=== PATIENT | female | born 1960 | race Two or more races ===

== ENCOUNTER → 2021-02-08 14:16 | Outpatient (BNVA) | payer MEDICAID, SELFPAY | PROVIDERS: PCP Internal Medicine; Visit Provider Internal Medicine Pulmonary Disease | DX: Q25.0 Patent ductus arteriosus (principal) | CPT/HCPCS: 99202 ==

== ENCOUNTER 2022-01-21 11:24 | Emergency (ER) | payer MEDICAID, SELFPAY ==
--- NOTE | ~2022-01-21 | CT_ITS ---
EXAMINATION: CT HEAD WITHOUT CONTRAST CLINICAL INFORMATION: Fall with pain COMPARISON: None TECHNIQUE: Contiguous axial imaging was performed from the skull base to vertex without intravenous administration of contrast. This CT examination was performed using dose optimization techniques as appropriate, variously including the following: *Automated exposure control *Adjustment of mA and/or kV according to patient size (this includes techniques or standardized protocols for targeted exams where dose is matched to indication/reason for exam; i.e. extremities or head) *Use of iterative reconstruction technique DLP: 712 mGy-cm FINDINGS: No evidence for acute bleed or mass effect. Vicente/white matter differentiation is maintained. No extra-axial collections. Cisterns are unremarkable. There are hypodense changes of periventricular and subcortical white matter consistent with chronic small vessel ischemic disease. Bilateral frontal, ethmoid, and sphenoid opacification seen. There is prominent mucosal thickening of maxillary sinuses. The mastoid air cells are well aerated. Calvarium is intact. CT/CT head/brain wo IV con IMPRESSION: No evidence for brain parenchymal bleed or mass effect. Changes of chronic small vessel ischemic disease of white matter. Sinusitis.
--- NOTE | ~2022-01-21 | CT_ITS ---
EXAMINATION: CT CERVICAL SPINE WITHOUT CONTRAST CLINICAL INFORMATION: Fall with pain COMPARISON: None TECHNIQUE: Axial sections performed and bone and soft tissue windows without IV contrast enhancement. Sagittal and coronal reconstructions performed. This CT examination was performed using dose optimization techniques as appropriate, variously including the following: *Automated exposure control *Adjustment of mA and/or kV according to patient size (this includes techniques or standardized protocols for targeted exams where dose is matched to indication/reason for exam; i.e. extremities or head) *Use of iterative reconstruction technique DLP: 310 mGy-cm FINDINGS: The odontoid and the condyles are unremarkable. C1 and C2 arches intact. No significant foraminal stenosis. Spondylitic change and eccentric degenerative disc space narrowing observed C5-C7. There is mild facet arthrosis. Spinous processes are intact. No appreciable central canal stenosis. The epiglottis and vocal cords are unremarkable. No suspicious cervical chain adenopathy, with small nodes appreciated. CT/CT cervical spine wo IV con IMPRESSION: No CT evidence for bony fracture. Degenerative changes as noted. Fleischner guidelines were followed.
--- NOTE | ~2022-01-21 | XR_ITS ---
EXAMINATION: XR ANKLE, RIGHT CLINICAL INFORMATION: Fall with pain. COMPARISON: None TECHNIQUE: AP, lateral, and mortise views of the right ankle. FINDINGS: There is a transverse, minimally displaced fracture of the lateral malleolus, distal to the syndesmosis with prominent overlying soft tissue swelling. There is an oblique fracture at the base of the medial malleolus. This configuration is typical of an inversion injury. The ankle mortise appears preserved. XR/XR ankle RT min 3V IMPRESSION: Bimalleolar fracture as described. The configuration is typical of an inversion injury. The ankle mortise appears preserved.
--- NOTE | ~2022-01-21 | XR_ITS ---
EXAMINATION: XR CHEST CLINICAL INFORMATION: Fall with pain COMPARISON: 12/18/2018 TECHNIQUE: Frontal view of the chest was obtained. FINDINGS: No focal consolidation, pulmonary edema, or pleural effusion. Stable mildly enlarged cardiomediastinal silhouette. XR/XR chest 1V IMPRESSION: No acute cardiopulmonary findings.
--- NOTE | 2022-01-21 11:32 | ED.GENADULT ---
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 Patient states that earlier today she tripped and fell down 6 stairs, landing on her right side. Patient states that when it happened, her right ankle twisted and it has been very painful since then. Patient denies hitting her head with the incident or having any loss of consciousness. Patient denies any numbness, tingling, dizziness, lightheadedness, abdominal pain, nausea, vomiting, fever, chills, blurry vision, double vision, loss of vision, chest pain, difficulty breathing, shortness of breath, back pain, night sweats, pain with urination, increased urinary frequency, increased urinary urgency, blood in her urine or stool, syncope or a near syncopal episode, bowel incontinence, bladder incontinence, bowel retention, bladder retention, or any other complaints at this time. Onset (ago): minute(s) Location: right and lower extremity Radiation: non-radiation Severity: moderate Severity scale (1-10): 5 Quality: sharp Pain Consistency: constant Relieving factors: immobilization Exacerbating factors: movement Associated symptoms: denies other symptoms Treatments prior to arrival: none Related Data Home Medications Medication Instructions Recorded Confirmed No Known Home Meds 11/20/20 11/20/20 Allergies Allergy/AdvReac Type Severity Reaction Status Date / Time No Known Allergies Allergy Unverified 01/21/22 11:31 Review of Systems Constitutional: Constitutional: Reports no additional constitutional complaints, Denies chills, Denies fever(s) and Denies night sweats Eyes: Eyes: Reports no additional eye complaints, Denies blurry vision, Denies change in vision, Denies diplopia, Denies eye discharge, Denies loss of vision and Denies eye pain ENT: Denies dizziness Cardiovascular: Cardiovascular: Reports no additional cardiovascular complaints, Denies chest pain, Denies lightheadedness, Denies Loss of Consciousness and Denies dyspnea Respiratory: Respiratory: Reports no additional respiratory complaints and Denies dyspnea Gastrointestinal: Gastrointestinal: Reports no additional gastrointestinal complaints, Denies abdominal pain, Denies melena, Denies hematochezia, Denies change in bowel habits and Denies change in stool character Genitourinary: Genitourinary: Denies hematuria, Denies urinary frequency, Denies dysuria, Denies urinary incontinence, Denies urinary hesitancy and Denies urinary urgency Musculoskeletal: Musculoskeletal: Reports no additional musculoskeletal complaints, Denies numbness and Denies tingling Comments: right ankle pain Neurologic: Denies dizziness, Denies loss of vision, Denies numbness and Denies tingling Psychiatric: Psychiatric: Reports no additional psychiatric complaints Endocrine: Endocrine: Reports no additional endocrine complaints Hematologic/Lymphatic: Hematologic/Lymphatic: Reports no additional hematologic/lymphatic complaints Allergic/Immunologic: Allergic/Immunologic: Reports no additional allergic/immunologic complaints PMFSH Past Medical History Attestation statement: The following information was validated with the patient. Source: old records reviewed Surgical History History of tubal ligation Family History Family History Father Prostate cancer Mother Diabetes Dementia Sister No problems noted. Sister No problems noted. Sister Dementia Brother No problems noted. Brother Prostate cancer Son No problems noted. Son No problems noted. Daughter No problems noted. Social History Social History Housing: Apartment Patient Tobacco Use Status: Current everyday Tobacco user Tobacco use type: Cigarette Cigarettes Per Day: 4 e-Cigarette/Vaping Use: Never Used Second Hand Smoke Exposure: Yes Advance Directives: No Advance Directives Information Provided: Yes service: No Current occupational status: employed Physical Exam ED Vital Signs: Vital Signs - 24 hr 01/21/22 11:35 01/21/22 14:31 Temperature 98.4 F 97.9 F Pulse Rate 92 82 Respiratory Rate 18 18 Blood Pressure 212/105 H 170/75 H Pulse Oximetry 97 96 Oxygen Delivery Method Room Air Room Air BMI result Body Mass Index 33.1 Const General: cooperative, no acute distress, alert and awake Nutritional Appearance: well nourished Orientation/consciousness: patient oriented x3 Limitations: no limitations HENMT Head: Yes normal to inspection and Yes atraumatic Ears: hearing grossly normal bilaterally and external ears normal General nose exam: Normal external nose present, no nasal discharge noted and no epistaxis Face and sinus: Yes normal facial exam, No abrasion and No laceration Mouth: Normal oral and palatal mucosa present, no drooling and no muffled voice Eyes General: appearance normal, both eyes and all related structures Periorbital: periorbital findings normal Eyelids: Yes eyelids normal Conjunctivae: conjunctivae normal Pupils: Equal, round and reactive pupils present EOM: EOMs intact bilaterally Neck Neck: Yes normal visual inspection, Yes full ROM and Yes no lymphadenopathy Chest Chest palpation & inspection: normal inspection of the chest Resp Effort & Inspection: normal respiratory effort and able to speak in complete sentences Auscultation: clear to auscultation bilaterally Cardio Rate: regular rate Rhythm: regular rhythm GI Inspection: Yes normal to inspection Neuro General: patient oriented x3 and moves all extremities Cranial nerves: Yes Equal, round and reactive pupils present Cognition (Neuro): normal cognition Motor exam (neuro): 5/5 motor strength present throughout Sensory Exam: Normal double simultaneous stimulation for sensation Coordination: [id number] test normal Extrem Other: swelling along the lateral aspect of the right ankle with pain to palpation and all movement of the right ankle General: Yes capillary refill normal Psych Appearance: grossly normal Mental Status: mental status grossly normal Affect: normal affect Attitude: cooperative Thought process: Normal thought process present Thought content: Normal thought content present Insight: Good insight present (Psych) Procedures Orthopedic Splinting/Casting Injury #1: Side: right Lower Extremity Injury Location: ankle Lower Extremity Immobilizer: posterior splint and stirrup splint Other Orthopedic Equipment: crutches Medical Decision Making [facility] Narrative Medical decision making narrative: Patient is a 61 year old assigned female at with a history of GERD presenting to the emergency department today with right ankle pain. Patient's physical exam showed swelling to the lateral aspect of the right ankle and pain with palpation or any movement of the right ankle. Patient's blood work was unremarkable. Patient's chest x-ray, CT head, and CT C-Spine showed no acute process. Patient's right ankle x-ray showed a bimalleolar fracture. I explained my physical exam findings as well as all test results to the patient, the patient's , and the patient's daughter. I answered all questions asked by the patient, the patient's , and the patient's daughter. Patient received IV Fentanyl by EMS on the way to the department. Patient also received PO Ativan which she stated helped her pain significantly. Patient's right ankle was placed in a posterior short leg with stirrups splint, without incident. Patient's PMS was intact prior to and after splint placement. Patient was given crutches as well as crutch instructions. I stressed the importance of the patient taking her medication as prescribed. I stressed the importance of the patient following up with her primary care provider and an orthopedic provider. I stressed the importance of the patient returning to the emergency department immediately if her symptoms were to worsen or if she were to develop any dizziness, shortness of breath, difficulty breathing, chest pain, blurry vision, loss of vision, nausea, vomiting, abdominal pain, fever, chills, back pain, or any other complaints. Patient, the patient's , and the patient's daughter verbalized agreement and understanding with this treatment plan and discharge. Medical Records Medical records reviewed: Yes I reviewed the patient's medical records. Lab Data Result diagrams: 01/21/22 11:53 01/21/22 11:53 Labs: Lab Results 01/21/22 01/21/22 01/21/22 Range/Units 11:53 11:53 11:53 WBC 7.4 (4.8-10.8) X10*3/uL RBC 4.17 L (4.20-5.50) X10*6/uL Hgb 13.0 (12.0-16.0) g/dl Hct 39.1 (37.0-47.0) % MCV 93.8 (80.0-98.0) fL MCH 31.2 (27.0-33.0) pg MCHC 33.2 (31.0-35.0) g/dl RDW 12.5 (11.0-16.0) % Plt Count 270 (160-400) X10*3/uL MPV 9.5 (9.4-12.3) fL Immature Gran % (Auto) 0.3 (0.0-0.4) % Neut % (Auto) 59.5 (45-73) % Lymph % (Auto) 28.7 (20-40) % Elbert % (Auto) 7.3 (2-11) % Eos % (Auto) 3.1 (0-4) % Baso % (Auto) 1.1 (0-2) % Lymph # (Auto) 2.1 (1.2-4.9) X10*3/uL Elbert # (Auto) 0.5 (0.1-1.2) X10*3/uL Eos # (Auto) 0.2 (0.0-0.4) X10*3/uL Baso # (Auto) 0.1 (0.0-0.2) X10*3/uL Abs Immat Gran (auto) 0.02 (0.00-0.03) X10*3/uL Absolute Neuts (auto) 4.4 (2.0-8.3) x10*3/uL Absolute Nucleated RBC 0.000 (0.0-0.012) X10*3/uL Nucleated RBC % (auto) 0.0 (0.0-0.2) /100WBC PT 11.8 (10.0-13.1) SEC INR 1.0 (0.9-1.1) APTT 30.2 (26.0-36.4) SEC Sodium 142 (135-145) mmol/L Potassium 4.3 (3.3-5.1) mmol/L Chloride 104 (96-108) mmol/L Carbon Dioxide 29 (22-29) mmol/L Anion Gap 13 (12-20) BUN 20 H (9-16) mg/dL Creatinine 0.86 (0.5-1.4) mg/dL Estim Creat Clear Calc 59.2 Estimated GFR > 60 Random Glucose 118 H (60-115) mg/dL Calcium 9.1 (8.4-10.2) mg/dL Total Bilirubin 0.6 (0.0-1.0) mg/dL AST 26 (5-31) U/L ALT 19 (0-31) U/L Alkaline Phosphatase 76 (39-117) U/L Total Protein 7.2 (6.5-8.0) g/dL Albumin 4.0 (3.5-5.0) g/dL Imaging Data Right ankle x-ray: Attestation: I personally reviewed and interpreted this imaging study as follows: My impression: Bimalleolar fracture Radiologist's impression: EXAMINATION: XR ANKLE, RIGHT CLINICAL INFORMATION: Fall with pain.? COMPARISON: None? TECHNIQUE: AP, lateral, and mortise views of the right ankle. FINDINGS: There is a transverse, minimally displaced fracture of the lateral malleolus, distal to the syndesmosis with prominent overlying soft tissue swelling. There is an oblique fracture at the base of the medial malleolus. This configuration is typical of an inversion injury. The ankle mortise appears preserved.? XR/XR ankle RT min 3V IMPRESSION: Bimalleolar fracture as described. The configuration is typical of an inversion injury. The ankle mortise appears preserved. Dictated By: Zain Emerson MD Signed By: Electronically signed by Zain Emerson MD 01/21/22 1251 Chest x-ray: Attestation: I personally reviewed and interpreted this imaging study as follows: My impression: No acute process. Radiologist's impression: EXAMINATION: XR CHEST CLINICAL INFORMATION: Fall with pain COMPARISON: 12/18/2018 TECHNIQUE: Frontal view of the chest was obtained. FINDINGS: No focal consolidation, pulmonary edema, or pleural effusion. Stable mildly enlarged cardiomediastinal silhouette. XR/XR chest 1V IMPRESSION: No acute cardiopulmonary findings. Dictated By: Zain Emerson MD Signed By: Electronically signed by Zain Emerson MD 01/21/[address] C-Spine: Attestation: I personally reviewed and interpreted this imaging study as follows: My impression: No acute process. Radiologist's impression: EXAMINATION: CT CERVICAL SPINE WITHOUT CONTRAST CLINICAL INFORMATION: Fall with pain COMPARISON: None TECHNIQUE: Axial sections performed and bone and soft tissue windows without IV contrast enhancement. Sagittal and coronal reconstructions performed. This CT examination was performed using dose optimization techniques as appropriate, variously including the following: *Automated exposure control *Adjustment of mA and/or kV according to patient size (this includes techniques or standardized protocols for targeted exams where dose is matched to indication/reason for exam; i.e. extremities or head) *Use of iterative reconstruction technique DLP: 310 mGy-cm FINDINGS: The odontoid and the condyles are unremarkable. C1 and C2 arches intact. No significant foraminal stenosis. Spondylitic change and eccentric degenerative disc space narrowing observed C5-C7. There is mild facet arthrosis. Spinous processes are intact. No appreciable central canal stenosis. The epiglottis and vocal cords are unremarkable. No suspicious cervical chain adenopathy, with small nodes appreciated. IMPRESSION: No CT evidence for bony fracture. Degenerative changes as noted. Fleischner guidelines were followed. Dictated by: Pavan Crump Electronically Signed: January 21, 2022 13:22 CT scan - head: Attestation: I personally reviewed and interpreted this imaging study as follows: My impression: No acute process. Radiologist's impression: EXAMINATION: CT HEAD WITHOUT CONTRAST CLINICAL INFORMATION: Fall with pain COMPARISON: None TECHNIQUE: Contiguous axial imaging was performed from the skull base to vertex without intravenous administration of contrast. This CT examination was performed using dose optimization techniques as appropriate, variously including the following: *Automated exposure control *Adjustment of mA and/or kV according to patient size (this includes techniques or standardized protocols for targeted exams where dose is matched to indication/reason for exam; i.e. extremities or head) *Use of iterative reconstruction technique DLP: 712 mGy-cm FINDINGS: No evidence for acute bleed or mass effect. Vicente/white matter differentiation is maintained. No extra-axial collections. Cisterns are unremarkable. There are hypodense changes of periventricular and subcortical white matter consistent with chronic small vessel ischemic disease. Bilateral frontal, ethmoid, and sphenoid opacification seen. There is prominent mucosal thickening of maxillary sinuses. The mastoid air cells are well aerated. Calvarium is intact. IMPRESSION: No CT evidence for brain parenchymal bleed or mass effect. Changes of chronic small vessel ischemic disease of white matter. Sinusitis. Fleischner guidelines were followed. Dictated by: Pavan Crump Electronically Signed: January 21, 2022 13:19 Critical Care Time Critical Care Time Critical Care Time: Yes Total Critical Care Time: 30 Attestation: I spent 30 minutes of Critical Care Time with this patient. This does not include time spent on separately reported billable procedures. Discharge Plan Discharge Clinical Impression: Ankle fracture Patient Disposition: Home, Self-Care Instructions: Ankle Fracture (ED), Crutch Instructions (ED) Additional Instructions: Do NOT get your splint wet. If you start to notice numbness, tingling, or a color change in your right toes - loosen the krysta wrap around your splint first. If that does not help alleviate the symptoms, please return to the Emergency Department. Follow up with your primary care provider and an orthopedic provider. Return to the emergency department immediately if your symptoms worsen or if you develop any dizziness, shortness of breath, difficulty breathing, chest pain, blurry vision, loss of vision, nausea, vomiting, abdominal pain, fever, chills, back pain, or any other complaints. NO moje angeles f?laci. Si comienza a notar entumecimiento, hormigueo o un cambio de color en los dedos del pie derecho, lala afloje la venda que envuelve la f?laci. Si eso no ayuda a aliviar los s?ntomas, regrese al Departamento de Emergencias. Ulises un seguimiento con angeles proveedor de atenci?n primaria y un proveedor ortop?dico. Regrese al departamento de emergencias de inmediato si hallie s?ntomas empeoran o si presenta mareos, falta de aire, dificultad para respirar, dolor de pecho, visi?n borrosa, p?rdida de la visi?n, n?useas, v?mitos, dolor abdominal, fiebre, escalofr?os, dolor de espalda o cualquier otras quejas. Prescriptions: No Action No Known Home Meds Referrals: [facility] [place] Family Medicine [Provider Group] (Call to establish and follow up with a primary care provider. If you already have a primary care provider, please follow up with them. Llame para establecer y hacer un seguimiento con un proveedor de atenci?n primaria. Si ya tiene un proveedor de atenci?n primaria, ulises un seguimiento con ?l.) [facility] [place] Primary CareAlexey [Provider Group] (Call to establish and follow up with a primary care provider. If you already have a primary care provider, please follow up with them. Llame para establecer y hacer un seguimiento con un proveedor de atenci?n primaria. Si ya tiene un proveedor de atenci?n primaria, ulises un seguimiento con ?l.) [facility] [place] Primary CareGabb[facility] [Provider Group] (Call to establish and follow up with a primary care provider. If you already have a primary care provider, please follow up with them. Llame para establecer y hacer un seguimiento con un proveedor de atenci?n primaria. Si ya tiene un proveedor de atenci?n primaria, ulises un seguimiento con ?l.) [facility] [place] [facility] [Provider Group] (Call to establish and follow up with an orthopedic provider. Llame para establecer y hacer un seguimiento con un proveedor ortop?dico.) Stand Alone Forms: Work/School Release Print Language: Divehi
[2022-01-21 11:35] VITALS: BP 212/105; PULSE 92; RESP 18; TEMP 36.9; O2SAT 97; BMI 33.1
[2022-01-21 11:56] LABS: MANUAL DIFF FLAG NO
[2022-01-21 12:00] LABS: Basophils Absolute Auto 0.1 X10*3/uL (0.0-0.2); Basophils Percent Auto 1.1 % (0-2); Eosinophils Absolute Auto 0.2 X10*3/uL (0.0-0.4); Eosinophils Percent Auto 3.1 % (0-4); Hematocrit 39.1 % (37.0-47.0); Imm Gran Abs Auto 0.02 X10*3/uL (0.00-0.03); Imm Gran Pct Auto 0.3 % (0.0-0.4); Lymphocytes Absolute Auto 2.1 X10*3/uL (1.2-4.9); Lymphocytes Percent Auto 28.7 % (20-40); Mean Corpuscular HGB Conc 33.2 g/dl (31.0-35.0); Mean Corpuscular Hemoglobin 31.2 pg (27.0-33.0); Mean Corpuscular Volume 93.8 fL (80.0-98.0); Mean Platelet Volume 9.5 fL (9.4-12.3); Monocytes Absolute Auto 0.5 X10*3/uL (0.1-1.2); Monocytes Percent Auto 7.3 % (2-11); Neutrophils Absolute Auto 4.4 x10*3/uL (2.0-8.3); Neutrophils Percent Auto 59.5 % (45-73); Platelet Count 270 X10*3/uL (160-400); Red Blood Count 4.17 X10*6/uL (4.20-5.50); Red Cell Distribution Width 12.5 % (11.0-16.0); White Blood Count 7.4 X10*3/uL (4.8-10.8)
[2022-01-21 12:03] LABS: Prothrombin Time 11.8 SEC (10.0-13.1)
[2022-01-21 12:05] LABS: Partial Thromboplastin Time 30.2 SEC (26.0-36.4)
[2022-01-21] MEDS: LORazepam 1 MG TABLET 2 MG PO (12:23)
[2022-01-21 12:25] LABS: Alanine Aminotransferase 19 U/L (0-31); Alkaline Phosphatase 76 U/L (39-117); Anion Gap 13 (12-20); Aspartate Amino Transferase 26 U/L (5-31); Bilirubin Total 0.6 mg/dL (0.0-1.0); Blood Urea Nitrogen 20 mg/dL (9-16); Calcium 9.1 mg/dL (8.4-10.2); Carbon Dioxide 29 mmol/L (22-29); Chloride 104 mmol/L (96-108); Creatinine Clr Calc Pharmacy 59.2; Estimated Glomerular Filt Rate > 60; Glucose Random 118 mg/dL (60-115); Potassium 4.3 mmol/L (3.3-5.1); Sodium 142 mmol/L (135-145); Total Protein 7.2 g/dL (6.5-8.0)
--- NOTE | 2022-01-21 13:34 | MHC.CM.PN ---
T/W MET WITH PATIENT AND FAMILY (WITH PERMISSION FROM PATIENT) PATIENT TO BE TRANSPORTED HOME WITH FAMILY (ALL PRESENT) AND NO NEED FOR [facility] SERVICES. PATIENT AND FAMILY AWARE THAT CM IS AVAILABLE IF NEEDED PRIOR TO DC.
[2022-01-21 14:31] VITALS: BP 170/75; PULSE 82; RESP 18; TEMP 36.6; O2SAT 96
== END 2022-01-21 15:18 | disposition home or self-care (01) ==
PROVIDERS: Physician Assistant Medical; Emergency Provider Emergency Medicine
DX: S82.841A Displaced bimalleolar fracture of right lower leg, initial encounter for closed fracture (principal); W10.8XXA Fall (on) (from) other stairs and steps, initial encounter; Y93.89 Activity, other specified; Y92.038 Other place in apartment as the place of occurrence of the external cause; Y99.9 Unspecified external cause status
CPT/HCPCS: 29515; 36415; 70450; 71045; 72125; 73610; 80053; 85025; 85610; 85730; 99283; 99284

== ENCOUNTER → 2022-01-25 08:28 | Outpatient (BNVA) | payer MEDICAID, SELFPAY | PROVIDERS: Visit Provider Physician Assistant | DX: M25.571 Pain in right ankle and joints of right foot (principal); S82.841A Displaced bimalleolar fracture of right lower leg, initial encounter for closed fracture; W01.0XXA Fall on same level from slipping, tripping and stumbling without subsequent striking against object, initial encounter; X50.1XXA Overexertion from prolonged static or awkward postures, initial encounter; Y93.01 Activity, walking, marching and hiking; Y92.9 Unspecified place or not applicable; Y99.8 Other external cause status | CPT/HCPCS: 29405; 99202 ==

== ENCOUNTER 2022-02-01 07:29 | Outpatient (REF) | payer MEDICAID, SELFPAY ==
--- NOTE | ~2022-02-01 | XR_ITS ---
EXAMINATION: XR ANKLE, RIGHT CLINICAL INFORMATION: Pain in right ankle and joints of right foot COMPARISON: None TECHNIQUE: AP, lateral, and mortise views of the right ankle. FINDINGS: Transverse fracture in the distal fibula and an oblique fracture in the medial malleolus that extends into the joint space. The posterior mortise appears intact. There is a joint effusion. There is soft tissue swelling. XR/XR ankle RT min 3V IMPRESSION: Transverse fracture in the distal fibula and oblique fracture in the medial malleolus that extends into the joint space.
== END 2022-02-01 07:30 | disposition home or self-care (01) ==
LOC: HO.HOSX 07:29
PROVIDERS: Visit Provider Physician Assistant
DX: M25.571 Pain in right ankle and joints of right foot (principal); S82.841A Displaced bimalleolar fracture of right lower leg, initial encounter for closed fracture; X58.XXXA Exposure to other specified factors, initial encounter; Y93.9 Activity, unspecified; Y92.9 Unspecified place or not applicable; Y99.8 Other external cause status
CPT/HCPCS: 73610; 99202

== ENCOUNTER 2022-02-13 07:10 | Day surgery (SDC) | payer OTHER, SELFPAY ==
--- NOTE | 2022-02-05 08:29 | P.CONAN_ITS ---
Documented by User: Rosibel Omer NP 02/05/22 12:23 HPI - Anesthesia Eval Consult details Narrative: 61yo F for Right Ankle Fracture ORIF Incidental finding of PDA on 2019 ECHO. Per pulmo, no pulm htn. No cardiology f/u. >4 mets prior to ankle injury. Case reviewed with Dr Martine VELARDE Active Problems Active Problems: All Active Problems (Updated 01/25/22 @ 09:09 by Nataliya Valdivia) Bimalleolar fracture of right ankle (Acute) Patent ductus arteriosus (Acute) GERD (gastroesophageal reflux disease) (Acute) Pulmonary artery hypertension (Acute) Cholelithiases (Acute) Cervical cancer screening (Acute) Colon cancer screening (Acute) Breast cancer screening by mammogram (Acute) Tobacco abuse (Acute) Overweight (BMI 25.0-29.9) (Acute) Annual physical exam (Acute) Past Medical History Medical History Patent ductus arteriosus Pulmonary artery hypertension Tobacco abuse Family History Family History Father Prostate cancer Mother Diabetes Dementia Sister No problems noted. Sister No problems noted. Sister Dementia Brother No problems noted. Brother Prostate cancer Son No problems noted. Son No problems noted. Daughter No problems noted. 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 Meds Allergies Allergy/AdvReac Type Severity Reaction Status Date / Time No Known Allergies Allergy Verified 02/13/22 07:28 Home Medications Medication Instructions Recorded Confirmed Last Taken Type ibuprofen 400 mg tablet 400 - 800 mg PO Q6-8H PRN pain 01/25/22 02/13/22 Unknown History hydrocodone 5 mg-acetaminophen 325 1 tab PO Q8H PRN pain 02/13/22 02/13/22 Unknown History mg tablet Exam Exam Date and Time: February 05, 2022 08 Pertinent Lab Results Pertinent Lab Results: Laboratory Tests 01/21/22 01/21/22 11:53 11:53 WBC 7.4 Hgb 13.0 Hct 39.1 Plt Count 270 Sodium 142 Potassium 4.3 Chloride 104 Carbon Dioxide 29 BUN 20 H Creatinine 0.86 Assessment and Plan Assessment Anesthesia Assessment: Chart Reviewed Documented by User: Vianey Interiano MD 02/13/22 08:20 PMFSH Active Problems Active Problems: All Active Problems (Updated 01/25/22 @ 09:09 by Nataliya Valdivia) Bimalleolar fracture of right ankle (Acute) Patent ductus arteriosus (Acute) GERD (gastroesophageal reflux disease) (Acute) Pulmonary artery hypertension (Acute) Cholelithiases (Acute) Cervical cancer screening (Acute) Colon cancer screening (Acute) Breast cancer screening by mammogram (Acute) Tobacco abuse (Acute) Overweight (BMI 25.0-29.9) (Acute) Annual physical exam (Acute) Denies JENNY Past Medical History Medical History Patent ductus arteriosus Pulmonary artery hypertension Tobacco abuse Family History Family History Father Prostate cancer Mother Diabetes Dementia Sister No problems noted. Sister No problems noted. Sister Dementia Brother No problems noted. Brother Prostate cancer Son No problems noted. Son No problems noted. Daughter No problems noted. 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 Meds Allergies Allergy/AdvReac Type Severity Reaction Status Date / Time No Known Allergies Allergy Verified 02/13/22 07:28 Home Medications Medication Instructions Recorded Confirmed Last Taken Type ibuprofen 400 mg tablet 400 - 800 mg PO Q6-8H PRN pain 01/25/22 02/13/22 Unknown History hydrocodone 5 mg-acetaminophen 325 1 tab PO Q8H PRN pain 02/13/22 02/13/22 Unknown History mg tablet Exam Height,Weight and Vital Signs: Height 4 ft 11 in Weight 68.039 kg Vital Signs Temp Pulse Resp BP Pulse Ox O2 Del Method 02/13/22 07:51 97.1 F 79 15 162/75 H 95 Room Air Airway Mallampati Class: III TM Dist: >3cm Neck ROM: Full Loose/Missing/Broken Teeth: Yes (Many missing, broken, 1 bottom front loose. Aware that may become dislodged with intubation/ LMA placement ) Heart: RRR + systolic murmur Lungs: CTAB Assessment and Plan Assessment Anesthesia Assessment: Anesthesia Plan Discussed Final Anesthetic Review Family History of Problems with Anesthesia: No History of Problems with Anesthesia: No NPO: Yes ASA Class: III Final Preanesthetic Review: No Changes in Pt Med Stat, Meds/Allgs Chart Reviewed, Consent Obtained/Reviewed and Anes Risks/Benef Reviewed Patient Risk: Intermediate Procedure Risk: Intermediate Assessment/Block/Sedation in SS: Assess/Block/Sedation- Anesthetic Plan Anesthetic Plan: GA and Regional Block (Right Adductor Canal + Popliteal nerve block) Disposition: Standard PACU and Inp. Admit - Standard Bed
[2022-02-13] VITALS (20 sets, daily range): BP systolic 145–212; BP diastolic 55–147; PULSE 69–878; RESP 14–24; TEMP 36–36.9; O2SAT 91–100; BMI 30.2
--- NOTE | ~2022-02-13 | FL_ITS ---
EXAMINATION: XR FLUOROSCOPY WITH IMAGES CLINICAL INFORMATION: Distal right fibular ORIF. COMPARISON: None. TECHNIQUE: Fluoroscopy performed by Dr. Lewis. Fluoroscopy time: 0.1. Cumulative Dose: 0.249 mGy. DAP: 0.95312 Gycm2. Images: 3. FL/FL guidance in OR FINDINGS/IMPRESSION: Final images show a lateral fixation plate and securing cortical screws in the distal fibula with good anatomic alignment and no hardware abnormality. Please refer to the operative report for more detailed findings.
[2022-02-13] MEDS: Lactated Ringers 1,000 ML 100 ML IVCONT (08:09)
[2022-02-13 08:34] LABS: COVID-19 Test Negative (Negative); IDNOW Serial# 9DB6401D
--- NOTE | 2022-02-13 11:36 | PM.OP ---
Brief Operative Note Date of Service: 02/13/22 Pre-op diagnosis: right ankle fracture Post-op diagnosis: same Procedure: ORIF right lateral mal Implants: Strykler lateral locking plate Surgeon: Riley Lewis MD Anesthesia: GETA and regional Was an Customer Specialist used for this Procedure?: Yes Customer Specialist: Terri López Estimated blood loss (mL): 10 IV fluids (mL): 500 Pathology: none sent Condition: stable Disposition: PACU
[2022-02-13] MEDS: fentaNYL citrate/PF 100 MCG/2 ML VIAL 25 MCG IVPUSH ×2 (11:51→12:01)
[2022-02-13] MEDS: fentaNYL citrate/PF 100 MCG/2 ML VIAL 50 MCG IVPUSH (11:56)
[2022-02-13] MEDS: Acetaminophen 1,000 MG/100 ML PIGGYBACK 400 MG IV (12:04)
[2022-02-13] MEDS: Ketorolac Tromethamine 30 MG/ML VIAL 15 MG IVPUSH (12:04)
[2022-02-13] MEDS: HYDROmorphone HCl 0.5 MG/0.5 ML SYRINGE 0.25 MG IVPUSH ×2 (12:16→12:38)
--- NOTE | 2022-02-13 13:16 | PM.EVENT ---
Event Note Date of Service: 02/13/22 Event Note: Patient post right ankle fracture with block that seemed to be patchy in intractible pain. Right popliteal block was redone. Aseptic prep and drape chlorohexadine. Ultrasound probe covered by tegaderm. 80mm insulated block needle used. Under Ultrasound guidance the artery and nerve was located. 20cc 0.5% ropivacaine injected with frequent aspirations. Good spread noted. Patient responded well to pain control.
[2022-02-13] MEDS: oxyCODONE HCl Immed Release 5 MG TABLET PO (21:42)
[2022-02-14] VITALS (8 sets, daily range): BP systolic 132–169; BP diastolic 60–84; PULSE 75–78; RESP 14–19; TEMP 35.9–36.8; O2SAT 98–100
[2022-02-14] MEDS: oxyCODONE HCl ER 10 MG TAB.ER.12H PO ×3 (00:20→19:43)
[2022-02-14] MEDS: oxyCODONE HCl Immed Release 5 MG TABLET 10 MG PO ×4 (00:20→17:23)
[2022-02-14] MEDS: Acetaminophen 325 MG TABLET 650 MG PO ×4 (00:20→17:23)
--- NOTE | 2022-02-14 08:29 | PM.PNORT ---
Subjective Subjective Date of Service: 02/14/22 Interval history: POD1 s/p right ankle ORIF. Patient is resting in bed. Patient does not appear to be in significant discomfort but reports pain. No additional complaints. Physical Exam Vital Signs: Vital Signs: Last Vital Signs Temp 97.1 F 02/14/22 07:18 Pulse 78 02/14/22 07:18 Resp 18 02/14/22 07:18 BP 158/74 H 02/14/22 07:18 Pulse Ox 100 02/14/22 07:18 O2 Del Method 02/14/22 07:18 O2 Flow Rate 2 02/13/22 14:21 BMI result Body Mass Index 30.2 Const: General: cooperative, healthy appearing and no acute distress Resp: Effort & Inspection: normal respiratory effort and able to speak in complete sentences Cardio: Rate: regular rate Peripheral pulses: Peripheral pulses 2+ throughout GI: Palpation (GI): Soft to palpation Skin: Lesions: no lesions Rashes: no rashes Extrem: Other: Right ankle splint is c/d/i. Able to move all digits. NVI. Procedures Date of Service Date of Service: 02/14/22 Progress Note: A&P Assessment and plan (1) Status post ORIF of fracture of ankle: Status: Acute Assessment and Plan: Continue pain mgmnt Begin ASA for dvt ppx begin PT for Rt ankle ORIF - NWB Dispo planning-Pending PT eval, pain mgmnt (2) Bimalleolar fracture of right ankle: Status: Acute Time Spent With Patient Time: Total time spent is greater than 50% in coordination of care (as documented) at patient's floor/unit and/or counseling patient: Quality Stroke Does the patient have a stroke diagnosis?: No VTE Prior VTE?: No VTE Risk Level:: Medical - moderate - high VTE Device Contraindication: N/A - Device Ordered VTE Drug Contraindication: N/A - Med Ordered
[2022-02-14] MEDS: ondansetron HCL 4 MG/2 ML VIAL IVPUSH (08:55)
--- NOTE | 2022-02-14 13:51 | HO.POSTANES ---
Post Anesthesia Evaluation Post Anesthesia Evaluation Vital Signs: Vital Signs Temp Pulse Resp BP Pulse Ox O2 Del Method 02/14/22 11:23 96.7 F L 78 18 169/84 H 99 Room Air 02/14/22 09:24 78 158/74 H 100 02/14/22 11:42 98 Room Air 02/14/22 07:18 97.1 F 78 18 158/74 H 100 Room Air 02/14/22 03:33 96.9 F 76 14 132/60 98 Room Air Anesthesia: Nerve Block and General Mental Status: Awake Pain Control: Satisfactory Nausea/Vomiting: None Hydration: Adequate Anesthesia-Related Issues: No Anes. Related Issues
--- NOTE | 2022-02-14 16:18 | MHC.CM.PN ---
PT REPORTS SHE LIVES WITH HER S/O WHO SHE TYPICALLY ASSISTS WITH CARE SHE REPORTS SHE IS INDEPENDENT WITH CARE AND MOBILITY AT BL SHE DENIES USE OF SERVICES OR DME SHE REPORTS SHE DOES NOT HAVE A HCP OR A PCP SHE WILL COMPLETE A HCP NAMING HER SISTER, NAYELY HERNANDEZ [phone] HER AGENT SHE IS NOT COVID VACCINATED SHE IS AWARE STR HAS BEEN RECOMMENDED SHE PREFERS TO STAY IN [place] HOWEVER IS AWARE IT MAY BE DIFFICULT TO FIND PLACEMENT DUE TO [facility] STATUS REFERRALS MADE TO ALL [place] SNFS
[2022-02-15] MEDS: oxyCODONE HCl Immed Release 5 MG TABLET 10 MG PO ×3 (02:27→16:12)
[2022-02-15] MEDS: Acetaminophen 325 MG TABLET 650 MG PO (02:28)
[2022-02-15 02:37] VITALS: BP 148/70; PULSE 90; RESP 18; TEMP 36.4; O2SAT 94
[2022-02-15 07:50] VITALS: BP 164/80; PULSE 80; RESP 18; TEMP 36.6; O2SAT 98
--- NOTE | 2022-02-15 08:15 | PM.PNORT ---
Subjective Subjective Date of Service: 02/15/22 Interval history: POD2 s/p right ankle ORIF. Patient is resting in bed. Pain is well managed. No overnight events. No additional complaints. Physical Exam Vital Signs: Vital Signs: Last Vital Signs Temp 97.9 F 02/15/22 07:50 Pulse 80 02/15/22 07:50 Resp 18 02/15/22 07:50 BP 164/80 H 02/15/22 07:50 Pulse Ox 98 02/15/22 07:50 O2 Del Method 02/15/22 07:50 O2 Flow Rate 2 02/13/22 14:21 BMI result Body Mass Index 30.2 Const: General: cooperative, healthy appearing and no acute distress Resp: Effort & Inspection: normal respiratory effort and able to speak in complete sentences Cardio: Rate: regular rate Peripheral pulses: Peripheral pulses 2+ throughout GI: Palpation (GI): Soft to palpation Skin: Lesions: no lesions Rashes: no rashes Extrem: Other: Right ankle splint is c/d/i. Able to move all digits. NVI. Procedures Date of Service Date of Service: 02/15/22 Progress Note: A&P Assessment and plan (1) Status post ORIF of fracture of ankle: Status: Acute Assessment and Plan: Continue pain mgmnt Begin ASA for dvt ppx begin PT for Rt ankle ORIF - NWB Dispo planning-Pending rehab placement, pain mgmnt (2) Bimalleolar fracture of right ankle: Status: Acute Time Spent With Patient Time: Total time spent is greater than 50% in coordination of care (as documented) at patient's floor/unit and/or counseling patient: Quality Stroke Does the patient have a stroke diagnosis?: No VTE Prior VTE?: No VTE Risk Level:: Medical - moderate - high VTE Device Contraindication: N/A - Device Ordered VTE Drug Contraindication: N/A - Med Ordered
[2022-02-15] MEDS: Aspirin 325 MG TABLET PO ×2 (08:32→21:09)
[2022-02-15] MEDS: oxyCODONE HCl ER 10 MG TAB.ER.12H PO ×2 (08:33→21:08)
[2022-02-15 10:06] VITALS: PULSE 80; O2SAT 98
[2022-02-15 11:36] VITALS: BP 171/74; PULSE 73; RESP 17; TEMP 37.2; O2SAT 98
[2022-02-15 16:00] VITALS: BP 168/74; PULSE 69; RESP 18; TEMP 36.5; O2SAT 98
[2022-02-15 20:00] VITALS: BP 165/70; PULSE 80; RESP 18; TEMP 36.3; O2SAT 94
[2022-02-16] VITALS (7 sets, daily range): BP systolic 140–161; BP diastolic 65–83; PULSE 62–82; RESP 16–19; TEMP 36–36.7; O2SAT 96–99
[2022-02-16] MEDS: oxyCODONE HCl Immed Release 5 MG TABLET 10 MG PO ×4 (03:43→23:33)
[2022-02-16] MEDS: oxyCODONE HCl ER 10 MG TAB.ER.12H PO (08:26)
[2022-02-16] MEDS: Acetaminophen 325 MG TABLET 650 MG PO ×2 (08:26→17:16)
[2022-02-16] MEDS: Aspirin 325 MG TABLET PO ×2 (08:27→22:18)
--- NOTE | 2022-02-16 10:11 | PM.PNORT ---
Subjective Subjective Date of Service: 02/16/22 Interval history: POD3 s/p right ankle ORIF. Patient is resting in bed. Pain is well managed. No overnight events. No additional complaints. Physical Exam Vital Signs: Vital Signs: Last Vital Signs Temp 98.0 F 02/16/22 07:53 Pulse 78 02/16/22 07:53 Resp 19 02/16/22 07:53 BP 155/83 H 02/16/22 07:53 Pulse Ox 96 02/16/22 07:53 O2 Del Method 02/16/22 07:53 O2 Flow Rate 2 02/13/22 14:21 BMI result Body Mass Index 30.2 Const: General: cooperative, healthy appearing and no acute distress Resp: Effort & Inspection: normal respiratory effort and able to speak in complete sentences Cardio: Rate: regular rate Peripheral pulses: Peripheral pulses 2+ throughout GI: Palpation (GI): Soft to palpation Skin: Lesions: no lesions Rashes: no rashes Extrem: Other: Right ankle splint is c/d/i. Able to move all digits. NVI. Procedures Date of Service Date of Service: 02/16/22 Progress Note: A&P Assessment and plan (1) Status post ORIF of fracture of ankle: Status: Acute Assessment and Plan: Continue pain mgmnt Begin ASA for dvt ppx begin PT for Rt ankle ORIF - NWB Dispo planning-Pending rehab placement--patient is unvacc for flu and covid so limited options, pain mgmnt (2) Bimalleolar fracture of right ankle: Status: Acute Time Spent With Patient Time: Total time spent is greater than 50% in coordination of care (as documented) at patient's floor/unit and/or counseling patient: Quality Stroke Does the patient have a stroke diagnosis?: No VTE Prior VTE?: No VTE Risk Level:: Medical - moderate - high VTE Device Contraindication: N/A - Device Ordered VTE Drug Contraindication: N/A - Med Ordered
[2022-02-16] MEDS: ondansetron HCL 4 MG/2 ML VIAL IVPUSH (10:36)
[2022-02-17] VITALS (8 sets, daily range): BP systolic 149–170; BP diastolic 67–80; PULSE 66–76; RESP 16–19; TEMP 36.1–36.5; O2SAT 95–99
[2022-02-17] MEDS: oxyCODONE HCl Immed Release 5 MG TABLET 10 MG PO (07:32)
[2022-02-17] MEDS: Docusate Sodium 100 MG CAPSULE PO (10:09)
[2022-02-17] MEDS: Aspirin 325 MG TABLET PO ×2 (10:09→20:48)
[2022-02-17] MEDS: ondansetron HCL 4 MG/2 ML VIAL IVPUSH (10:11)
[2022-02-17] MEDS: oxyCODONE HCl Immed Release 5 MG TABLET PO (15:55)
[2022-02-17] MEDS: Acetaminophen 325 MG TABLET 650 MG PO (15:55)
[2022-02-17] MEDS: oxyCODONE HCl ER 10 MG TAB.ER.12H PO (20:48)
[2022-02-18] MEDS: Acetaminophen 325 MG TABLET 650 MG PO ×3 (02:39→15:21)
[2022-02-18] MEDS: oxyCODONE HCl Immed Release 5 MG TABLET PO ×3 (02:39→15:21)
[2022-02-18 02:43] VITALS: BP 165/79; PULSE 76; RESP 18; TEMP 36; O2SAT 98
[2022-02-18 07:29] VITALS: BP 164/79; PULSE 72; RESP 17; TEMP 36; O2SAT 98
--- NOTE | 2022-02-18 07:59 | P.DS_ITS ---
DS: Providers Provider Date of Service: 02/18/22 Primary care physician: Unknown Physician DS: Diagnosis Discharge Diagnosis (1) Status post ORIF of fracture of ankle: Status: Acute (2) Bimalleolar fracture of right ankle: Status: Acute DS: Summary Hospital Course Hospital Course: The patient underwent a successful ORIF right ankle, was transferred to PACU and then to the floor to recover. During their stay, their vitals were stable, afebrile at 96.8. POD 1 she was started on ASA for DVT ppx, she also received PT servicesdaily. Prior to discharge,splint clean , dry and intact and the plan was to be discharged to [facility] Time Spent with Patient Time attestation: Total time spent providing and/or coordinating discharge services: Discharge coordination time: Less than 30 minutes Quality: Safe Use of Opioids Does Pt have an Active Cancer Diagnosis on the Problem List?: No Quality: Stroke Does the patient have a stroke diagnosis?: No Physical Exam Vital Signs: Vital Signs: Last Vital Signs Temp 96.8 F 02/18/22 07:29 Pulse 72 02/18/22 07:29 Resp 17 02/18/22 07:29 BP 164/79 H 02/18/22 07:29 Pulse Ox 98 02/18/22 07:29 O2 Del Method 02/18/22 07:29 O2 Flow Rate 2 02/13/22 14:21 BMI result Body Mass Index 30.2 Const: General: cooperative, healthy appearing and no acute distress Resp: Effort & Inspection: normal respiratory effort and able to speak in complete sentences Cardio: Rate: regular rate Peripheral pulses: Peripheral pulses 2+ throughout GI: Palpation (GI): Soft to palpation Skin: Lesions: no lesions Rashes: no rashes Extrem: Other: Right ankle splint is c/d/i. Able to move all digits. NVI. Discharge Plan Discharge Patient Disposition: [facility] SNF Referrals: Terri López PA-C [Physician Body And Fender Mechanic Apprentice] - 2 Weeks (02/18/22 2:30 [facility] Terri López PA-C) Discharge Medications: New oxycodone 10 mg tablet 10 mg PO Q4H PRN (Reason: Pain, Moderate (Pain Scale 4-6) 7 Days Qty: 42 0RF Rx Instructions: Partial Fill upon patient request. acetaminophen 325 mg Tablet 650 mg PO Q4H PRN (Reason: Pain, Mild (Pain Scale 1-3)) 30 Days Qty: 20 0RF Discontinued hydrocodone-acetaminophen 5-325 mg tablet 1 tab PO Q8H PRN (Reason: pain) ibuprofen 400 mg tablet 400 - 800 mg PO Q6-8H PRN (Reason: pain) hydrocodone-acetaminophen 5-325 mg tablet 1 tab PO Q8H PRN (Reason: pain) 4 Days Qty: 12 0RF Rx Instructions: Partial Fill upon patient request. Diet: Regular diet Activity on Discharge: Crutches Patient Instructions: ORIF of an Ankle Fracture (DC) Activity Restrictions/Additional Instructions: * NWB x 6 weeks operative leg with crutches * Keep splint clean, dry and intact * Elevate leg above the level of the heart on 3 pillows * Any questions or concerns please call the office MIRELA * Follow up with Orthopedics in 2 weeks. 02/18/22 @ 2:30pm
--- NOTE | 2022-02-18 08:28 | MHC.CM.PN ---
Addendum entered by Naila Marroquin 02/18/22 15:33: DC DELAYED DUE TO INSURANCE AUTH [facility] NOW HAS AUTH HCP COMPLETED WITH PT WITH ASSISTANCE OF HAMPER MAKER MACHINE PT IS AWARE SHE IS SET TO DC AT 1600 HOURS [facility] SHE REPORTS SHE IS SAD TO BE GOING SO FAR FROM HOME HER AND SISTER DO NOT HAVE CARS CM AGREED TO MESSAGE SNF LIAISON TO ASK THAT SHE BE TRANSFERRED TO [place] IF A BED OPENED THERE MESSAGE SENT Original Note: CM INFORMED PT WILL POTENTIALLY DC TODAY [facility] IS THE ONLY FACILITY OFFERING A BED DUE TO PTS NON-VACCINATED STATUS AND INSURANCE CM RECEIVED A CALL FROM PTS SISTER/HCP, ANYELYBHAVYA ADLER WAS INFORMED OF THE BED OFFER AND THAT PT WOULD LIKELY DC TODAY SHE UNDERSTANDS THE BARRIERS TO FINDING A CLOSER FACILITY SHE WILL COME IN TO VISIT PT PRIOR TO DC, SHE IS WORRIED THADDEUS WILL BE NERVOUS NAYELY AND PT ARE AWARE PT WILL TRANSPORT VIA BLS
[2022-02-18] MEDS: oxyCODONE HCl ER 10 MG TAB.ER.12H PO (08:30)
[2022-02-18] MEDS: Docusate Sodium 100 MG CAPSULE PO (08:30)
[2022-02-18] MEDS: Aspirin 325 MG TABLET PO (08:30)
[2022-02-18 09:05] LABS: IDNOW Serial# 16C4AD1C
[2022-02-18 09:07] LABS: COVID-19 Test Negative (Negative)
[2022-02-18] MEDS: ondansetron HCL 4 MG/2 ML VIAL IVPUSH (10:24)
[2022-02-18 11:25] VITALS: BP 157/70; PULSE 67; RESP 17; TEMP 36.3; O2SAT 95
--- NOTE | 2022-02-19 12:42 | W.PM.OPN ---
Operative Note Operative Note Date of Service: 02/13/22 Narrative: Date of Service: 02/13/22 Pre-op diagnosis: right ankle fracture Post-op diagnosis: same Procedure: ORIF right lateral mal Implants: Strykler lateral locking plate Surgeon: Riley Lewis MD Anesthesia: GETA and regional Was an Diamond Cutter used for this Procedure?: Yes Diamond Cutter: Terri Lóepz Estimated blood loss (mL): 10 IV fluids (mL): 500 Pathology: none sent Condition: stable Disposition: PACU Procedure in detail: Patient was brought to the operating room and placed supine on the operative table. All bony prominences were well padded and a time-out was called to identify proper site proper procedure proper surgeon. IV antibiotics per weight were administered. I began by exsanguinating limb is slightly tourniquet to 300 mm Hg. I then made a standard posterolateral incision over the fibula. Full-thickness flaps were taken down to the fibular shaft and distal fibula. The fracture was identified and cleaned with a combination of curette, rongeur and irrigation. A lobster claw was used to provisionally reduce the fracture and a 6 hole distal fibular locking plate was applied using standard AO technique. Biplanar fluoroscopy was used to confirm hardware position and fracture reduction. Once I was satisfied that both of these were acceptable I irrigated copiously and turned my attention to the medial side. The transverse medial malleolar fracture was barely visible with radiographs and stable with neg external rotation test. Therefore all instrumentation was removed and copious irrigation was performed. Absorbable suture and julianne were used for closure and the patient was placed into sterile dressings and a well-padded posterior splint. Tourniquet was let down and the patient was extubated brought to recovery room in stable condition there were no known complications.
== END 2022-02-18 16:47 | disposition skilled nursing facility (03) ==
LOC: HO.SSS 07:11 → HO.S3 14:14
PROVIDERS: Physician Assistant; Visit Provider Orthopaedic Surgery
PROC: (CPT 27792; principal; 2022-02-13 09:10)
DX: S82.841A Displaced bimalleolar fracture of right lower leg, initial encounter for closed fracture (principal); Z98.890 Other specified postprocedural states; M25.571 Pain in right ankle and joints of right foot; X58.XXXA Exposure to other specified factors, initial encounter; Y93.9 Activity, unspecified; Y92.9 Unspecified place or not applicable; Y99.8 Other external cause status; F17.210 Nicotine dependence, cigarettes, uncomplicated; Z20.822 Contact with and (suspected) exposure to COVID-19
CPT/HCPCS: 27792; 87635; 97110; 97116; 97162; 99499; C1713; J0131; J0690; J1100; J1170; J1885; J2250; J2405; J2795; J3010

== ENCOUNTER 2022-02-25 | Outpatient (REF) | payer OTHER, SELFPAY ==
--- NOTE | ~2022-02-25 | XR_ITS ---
EXAMINATION: XR ANKLE, RIGHT CLINICAL INFORMATION: Pain COMPARISON: Right ankle 01/24/2022 TECHNIQUE: AP, lateral, and mortise views of the right ankle. FINDINGS: There is lateral plate and julianne stabilizing distal fibular fracture in alignment. The soft tissue swelling has improved. No change in the oblique fracture of the medial malleolus from previous study. There is no displacement. The ankle mortise and subtalar joints are normal. XR/XR ankle RT min 3V IMPRESSION: 1. ORIF distal fibular fracture with plate and julianne in alignment. 2. No change in the oblique fracture medial malleolus. 3. The soft tissue swelling has improved.
== END 2022-02-25 00:01 ==
LOC: HO.HOSX
PROVIDERS: Visit Provider Physician Assistant
DX: M25.571 Pain in right ankle and joints of right foot (principal)
CPT/HCPCS: 73610

== ENCOUNTER 2022-03-25 | Outpatient (REF) | payer OTHER, SELFPAY | END 2022-03-25 00:01 | LOC: HO.HOSX | PROVIDERS: Visit Provider Physician Assistant | DX: S82.841A Displaced bimalleolar fracture of right lower leg, initial encounter for closed fracture (principal) | CPT/HCPCS: 73610; 99212 ==

== ENCOUNTER 2022-05-06 17:03 | Outpatient (REF) | payer OTHER, SELFPAY ==
--- NOTE | ~2022-05-06 | XR_ITS ---
EXAMINATION: XR ANKLE, RIGHT CLINICAL INFORMATION: Pain. COMPARISON: None TECHNIQUE: AP, lateral, and mortise views of the right ankle. FINDINGS: Bony alignment is normal. There is mild bony demineralization. No acute fracture or dislocation is seen. An orthopedic plate and screws are applied to the distal fibula. The previously noted distal fibular fracture line is now faintly seen. The ankle mortise is intact. There is no right ankle joint effusion. Boehler's angle is normal. There is a minimal posterior calcaneal spur. No focal soft tissue swelling, gas or foreign body is seen. XR/XR ankle RT min 3V IMPRESSION: 1. No fracture, dislocation or right ankle joint effusion is seen. 2. A healed distal fibular fracture is noted, with intact orthopedic hardware. 3. There is a tiny posterior calcaneal spur.
== END 2022-05-06 17:04 | disposition home or self-care (01) ==
LOC: HO.HOSX 17:03
PROVIDERS: Visit Provider Physician Assistant
DX: S82.841D Displaced bimalleolar fracture of right lower leg, subsequent encounter for closed fracture with routine healing (principal); X58.XXXD Exposure to other specified factors, subsequent encounter
CPT/HCPCS: 73610

== ENCOUNTER → 2022-05-10 10:18 | Outpatient (REF) | payer OTHER, SELFPAY ==
--- NOTE | 2022-05-10 10:22 | CA_ITS ---
Transthoracic Echocardiogram Patient (Last, First, Middle): Francie Li, Gender: Female Date of : 1960 Age: 62 Procedure Date: 05/10/2022 Procedure Type: Transthoracic Echocardiogram Location: OP Height: 149.86 cm Weight: 68.49 kg BSA: 1.64 m2 Heart Rate: 67 bpm BP: 140 / 70 mmHg Access Lead: RADHA Referring MD: Sammie KHANNA Symptoms: R01.1 - Cardiac murmur, unspecified Study Quality: Good ECG Rhythm: Sinus Conclusions: - LV is dilated. - Normal right ventricular cavity size and systolic function. - There is mild dilatation of the sinuses of Valsalva measuring 4.10 cm and mild dilatation of the ascending aorta measuring 3.50 cm. - There is mildly increased left ventricular wall thickness. The left ventricular systolic function is normal. The visually estimated ejection fraction is between 55-60%. Findings Left Ventricle There is mildly increased left ventricular wall thickness. The left ventricular systolic function is normal. The visually estimated ejection fraction is between 55-60%. There is mild global hypokinesis. Abnormal diastolic function is noted. Spectral Doppler is indicative of a pseudonormal filling pattern. Elevated filling pressures. LV is dilated. Right Ventricle Normal right ventricular cavity size and systolic function. Atria The left atrium is mildly dilated. The right atrium is normal in size. Aortic Valve Normal aortic valve structure and function. There is no aortic valve stenosis. There is trace (trivial) aortic valve regurgitation. Mitral Valve Normal mitral valve structure and function. There is mild mitral annular calcification. There is trace mitral valve regurgitation. There is no mitral valve stenosis. Pulmonic Valve Normal pulmonic valve structure and function. There is trace pulmonic valve regurgitation. Tricuspid Valve Normal tricuspid valve structure. There is no tricuspid valve regurgitation. Normal right atrial pressure. There is no evidence of pulmonary hypertension. Great Vessels There is mild dilatation of the sinuses of Valsalva measuring 4.10 cm and mild dilatation of the ascending aorta measuring 3.50 cm. The pulmonary artery is mildly dilated. Venous The inferior vena cava is normal in size and collapses greater than 50% with inspiration. Pericardium/Pleural There is no evidence of pericardial effusion. Prior Study Comparison Changes noted compared to prior study dated: 12/18/2018. Dilated LV with known h/o PDA. LV function continues to be normal. PDA was not well assessed on this study. Measurements 2D Linear Measurements IVSd: 0.94 0.6-0.9/0.6-1.0 cm LVIDd: 6.27 3.9-5.3/4.2-5.9 cm LVIDd Index: 3.82 2.4-3.2/2.2-3.1 cm/m2 LVIDs: 4.13 2.0-3.6 cm LVPWd: 1.12 0.7-1.1 cm LA Diam: 4.20 2.7-3.8/3.0-4.0 cm LAIDs Index: 2.56 1.5-2.3 cm/m2 LV Mass: 344.35 67-162/88-224 g LV Mass Index: 209.97 43-95/49-115 g/m2 LVOT Diam: 2.20 3.0+(-)1.3 cm 2D Systolic Function EF 4C: 59.80 >55% EF 2C: 52.60 >55% EF BiP: 56.20 >55% Mitral Valve MV Pk E: 1.12 MV PK A: 0.80 MV Decel Time: 143.00 E/A: 1.40 E'Lateral: 6.48 E'Medial: 4.56 E/E' Med: 24.60 E/E' Lat: 17.30 PHT: 42.00 MVA PHT: 5.24 Decel [place]: 7.80 Aortic Valve AoV Pk Que: 1.63 AoV Mn Que: 1.11 AoV VTI: 0.35 AoV Pk Grad: 11.00 Aov Mn Grad: 6.00 NANI Cont.VTI: 3.11 AI Pk Que: 4.30 AI [place]: 1.77 LVOT LVOT Pk Qeu: 1.43 LVOT Mn Que: 0.89 LVOT VTI: 0.29 LVOT Pk Grad: 8.00 LVOT Mn Grad: 4.00 LVOT Diam: 2.20 LVOT Area: 3.80 Diastolic Function MV Pk E: 1.12 MV Pk A: 0.80 E/A: 1.40 E'Medial: 4.56 E/E' Med: 24.60 E' Laterial: 6.48 E/E' Lat: 17.30 Right Ventricle TAPSE (mm): 18.90 TVS' Que: 10.70 Tricuspid Valve TR Pk Que: 1.68 TR Pk Grad: 11.00 RA Press: 3.00 RVSP: 14.00 Great Vessels Aorta Sinus of Valsalva: 4.10 2.0-3.5 cm Ao Asc: 3.50 2.1-3.4 cm Pulmonary Valve PV Pk Que: 1.19 Peak PV Grad: 6.00 Updated in Other Vendor System with Status of Final Ronnell Bridges MD electronically signed on 05/12/2022 2:43:39 PM with status of Final
== END ==
LOC: HO.CARD 10:18
PROVIDERS: PCP Internal Medicine; Visit Provider Nurse Practitioner Family
DX: R01.1 Cardiac murmur, unspecified (principal); Q25.0 Patent ductus arteriosus
CPT/HCPCS: 93306

== ENCOUNTER 2022-05-27 11:05 | Outpatient (REF) | payer OTHER, SELFPAY ==
--- NOTE | ~2022-05-27 | MM_ITS ---
EXAMINATION: MM SCREENING DIGITAL BREAST TOMOSYNTHESIS, BILATERAL CLINICAL INFORMATION: Screening. Asymptomatic. Age 62. No prior mammography. No known family history breast cancer. The lifetime risk of breast cancer based on the Tyrer-Cuzick Model is 5%. COMPARISON: None (current study represents initial baseline exam). TECHNIQUE: Digital breast tomosynthesis is performed in both the craniocaudal and mediolateral oblique views along with computer-aided detection (CAD). Synthesized 2D images are generated from the tomosynthesis. FINDINGS: There are scattered areas of fibroglandular density (ACR BI-RADS breast composition Category b). There are no significant masses, abnormal calcifications, or other abnormalities. There is no architectural abnormality. The axilla and skin contours are unremarkable. MM/MM tomosynthesis screening BI IMPRESSION: No mammographic evidence of malignancy. ASSESSMENT: BI-RADS 1: Negative RECOMMENDATION: Routine annual mammography screening. This patient's information was entered into a reminder system with a target due date for their next mammogram.
== END 2022-05-27 11:06 | disposition home or self-care (01) ==
LOC: HO.MAMMO 11:05
PROVIDERS: PCP Internal Medicine; Visit Provider Nurse Practitioner Family
DX: Z12.31 Encounter for screening mammogram for malignant neoplasm of breast (principal)
CPT/HCPCS: 77063; 77067

== ENCOUNTER → 2022-06-17 10:57 | Outpatient (BNVA) | payer OTHER, SELFPAY | PROVIDERS: PCP Internal Medicine; Visit Provider Physician Assistant ==

== ENCOUNTER → 2022-07-09 11:01 | Outpatient (BNVA) | payer OTHER, SELFPAY | PROVIDERS: PCP Internal Medicine; Referring Provider Internal Medicine; Visit Provider Internal Medicine | DX: Z01.810 Encounter for preprocedural cardiovascular examination (principal); Q25.0 Patent ductus arteriosus | CPT/HCPCS: 93005; 99202 ==

== ENCOUNTER → 2022-07-26 13:59 | Outpatient (REF) | payer OTHER, SELFPAY ==
--- NOTE | 2022-07-26 14:02 | CA_ITS ---
Transthoracic Echocardiogram Patient (Last, First, Middle): Francie Li, Gender: Female Date of : 1960 Age: 62 Procedure Date: 07/26/2022 Procedure Type: Transthoracic Echocardiogram Location: OP Height: 160.02 cm Weight: 66.68 kg BSA: 1.70 m2 Heart Rate: 76 bpm BP: 144 / 74 mmHg [place] [employer]: SB Referring MD: Yang Allen MD Symptoms: Q25.0 - Patent ductus arteriosus Study Quality: Adequate ECG Rhythm: Sinus Conclusions: - Main pulmonary artery dilated; root -4cm; mid 3.4cm; more distally 4cm. - PDA with continuous flow noted; peak gradient 143mmHg. Findings Great Vessels Main pulmonary artery dilated; root -4cm; mid 3.4cm; more distally 4cm. PDA with continuous flow noted; peak gradient 143mmHg. Prior Study Comparison Changes noted compared to prior study dated: 05/10/2022. see comments. Measurements 2D Linear Measurements LVOT Diam: 2.30 3.0+(-)1.3 cm LVOT LVOT Pk Que: 1.16 LVOT Mn Que: 0.75 LVOT VTI: 0.22 LVOT Pk Grad: 5.00 LVOT Mn Grad: 3.00 LVOT Diam: 2.30 LVOT Area: 4.15 Updated in Other Vendor System with Status of Final Yang Allen MD electronically signed on 07/27/2022 1:11:26 PM with status of Final
== END ==
LOC: HO.CARD 13:59
PROVIDERS: PCP Internal Medicine; Visit Provider Internal Medicine
DX: Q25.0 Patent ductus arteriosus (principal)
CPT/HCPCS: 93308

== ENCOUNTER 2022-07-29 09:17 | Outpatient (REF) | payer OTHER, SELFPAY ==
--- NOTE | ~2022-07-29 | XR_ITS ---
EXAMINATION: XR ANKLE, RIGHT CLINICAL INFORMATION: Pain right ankle. COMPARISON: None available. TECHNIQUE: AP, lateral, and mortise views of the right ankle. FINDINGS: There is a healed distal fibular fracture with lateral plate and screws. No acute fracture or dislocation seen. Ankle mortise and subtalar joints are normal. There is a small retrocalcaneal enthesophyte The soft tissues are normal. XR/XR ankle RT min 3V IMPRESSION: 1. Healed distal fibular fracture with lateral plate and screws. No acute fracture or dislocation seen. 2. There is a small retrocalcaneal enthesophyte. 3. No acute fracture or dislocation
== END 2022-07-29 09:18 | disposition home or self-care (01) ==
LOC: HO.HOSX 09:17
PROVIDERS: Visit Provider Physician Assistant
DX: M25.571 Pain in right ankle and joints of right foot (principal); Z98.890 Other specified postprocedural states; Z87.81 Personal history of (healed) traumatic fracture
CPT/HCPCS: 73610; 99212

== ENCOUNTER → 2022-08-23 13:59 | Outpatient (BNVA) | payer OTHER, SELFPAY | PROVIDERS: PCP Internal Medicine; Visit Provider Nurse Practitioner Family | DX: Z12.11 Encounter for screening for malignant neoplasm of colon (principal) | CPT/HCPCS: 99202 ==

== ENCOUNTER → 2022-09-16 11:16 | Outpatient (BNVA) | payer OTHER, SELFPAY | PROVIDERS: PCP Internal Medicine; Visit Provider Orthopaedic Surgery | DX: Z98.890 Other specified postprocedural states (principal); Z87.81 Personal history of (healed) traumatic fracture | CPT/HCPCS: 99212 ==

== ENCOUNTER 2022-10-17 11:00 | Outpatient (RCR) | payer OTHER, SELFPAY ==
--- NOTE | 2022-06-12 14:57 | MHC.PT.EP ---
[facility] [place] Office [place] Office [place] Office [address] Familia Arellano [address] [phone] F: [phone] F: [phone] F: [phone] F: [phone] Physical Therapy Plan of Care Date of Evaluation: Date of Surgery: 02/13/22 Diagnosis: RIGHT ankle bimalleolar fx s/p ORIF R bimalleolar ankle fx Assessment: Patient is a Jordanian speaking 62 y.o. female who is referred to PT by JOSE Wan, with Dx of s/p ORIF of fx of right ankle (DOS: 02/13/2022). Patient had previous STR and home PT and is now referred to outpatient PT with some difficulty attending sooner due to transportation. Patient impairments include pain, swelling, limited ROM, weakness, antalgic gait, and reduced balance, also of concern is her discussion of depression with me during session. She is on medication but would like more assistance at home. I called N and gave her information and number for over the phone at home counseling through her insurance (since transportation is a concern). I also encouraged patient to speak with her social media community manager, if she desires and if she has one, if not, contact her PCP as well. 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 Patient will benefit from skilled PT to address aforementioned impairments and functional limitations to meet established goals. Frequency and Duration: The patient will be seen 2x/week for 4 weeks Short Term Goals: 2 weeks Patient demonstrates consistency and independence with HEP to self manage symptoms. Patient presents with increased right ankle DF 0 degrees to ambulate with straight cane 100 ft. Halfway Goals: 4 weeks Patient presents with increased SLS on R 5 seconds to be able to ambulate without AD in home. Patinet presents with increased R ankle inversion and eversion strength 4+/5 to be able to stand for bathing Treatment Plan: Modalities to reduce pain, spasms and effusion. Manual therapy to restore motion and function. Therapeutic exercise to improve strength and flexibility. Neuromuscular re-education for posture and balance. Therapeutic activities to return to functional activities of daily living. Electronically signed by: John Salazar PT, DPT Please sign and return to therapist. Thank you for your referral.
--- NOTE | 2022-10-17 14:11 | MHC.PT.DC ---
[facility] [place] Office [place] Office [place] Office [address] Familia Arellano [address] [phone] F: [phone] F: [phone] F: [phone] F: [phone] Physical Therapy Discharge Report Diagnosis: RIGHT ankle bimalleolar fx s/p ORIF R bimalleolar ankle fx Date of Surgery: 02/13/22 Date of Evaluation: 06/12/22 Date of Discharge: 10/17/22 Treatments to Date: 16 Cancellations to Date: No Shows to Date: Discharge Status: Improved Function Independent with HEP Discharge Summary: Sherry has shown improvement since beginning phyiscal therapy, with improved AROM, strength, improved gait able to utilize straight cane as well as 4WW and reduced sensitivity. She remains most limited by pain and sxs of numbness in lateral ankle in area where hardware is located, this also limits her into eversion. She still finds stairs to be challenging and unlevel surfaces. She is appropriate for discharge at this time and has independent HEP. Electronically signed by: John Salazar, PT, DPT Please sign and return to therapist. Thank you for your referral.
== END 2022-10-17 14:11 | disposition home or self-care (01) ==
LOC: HO.PT 11:00
PROVIDERS: PCP Internal Medicine; Visit Provider Physician Assistant
DX: Z98.890 Other specified postprocedural states (principal); Z87.81 Personal history of (healed) traumatic fracture
CPT/HCPCS: 97110; 97112; 97116; 97140; 97162; 97530

== ENCOUNTER 2022-11-14 10:56 | Outpatient (REF) | payer OTHER, SELFPAY ==
[2022-11-14 11:12] LABS: MANUAL DIFF FLAG NO
[2022-11-14 11:27] LABS: Basophils Absolute Auto 0.1 X10*3/uL (0.0-0.2); Eosinophils Absolute Auto 0.1 X10*3/uL (0.0-0.4); Hemoglobin 13.1 g/dl (12.0-16.0); Imm Gran Abs Auto 0.03 X10*3/uL (0.00-0.03); Imm Gran Pct Auto 0.4 % (0.0-0.4); Lymphocytes Absolute Auto 2.5 X10*3/uL (1.2-4.9); Lymphocytes Percent Auto 36.6 % (20-40); Mean Corpuscular HGB Conc 32.8 g/dl (31.0-35.0); Mean Corpuscular Hemoglobin 30.8 pg (27.0-33.0); Mean Corpuscular Volume 94.1 fL (80.0-98.0); Mean Platelet Volume 9.7 fL (9.4-12.3); Monocytes Absolute Auto 0.5 X10*3/uL (0.1-1.2); Monocytes Percent Auto 7.3 % (2-11); Neutrophils Absolute Auto 3.6 x10*3/uL (2.0-8.3); Neutrophils Percent Auto 52.7 % (45-73); Platelet Count 299 X10*3/uL (160-400); Red Blood Count 4.25 X10*6/uL (4.20-5.50); White Blood Count 6.9 X10*3/uL (4.8-10.8)
[2022-11-14 11:47] LABS: B Type Natriuretic Peptide 117 pg/mL (<100)
[2022-11-14 13:01] LABS: Alanine Aminotransferase 20 U/L (0-31); Albumin Level 3.9 g/dL (3.5-5.0); Alkaline Phosphatase 94 U/L (39-117); Anion Gap 11 (12-20); Aspartate Amino Transferase 19 U/L (5-31); Bilirubin Total 0.6 mg/dL (0.0-1.0); Blood Urea Nitrogen 11 mg/dL (9-16); Calcium 9.1 mg/dL (8.4-10.2); Carbon Dioxide 30 mmol/L (22-29); Chloride 104 mmol/L (96-108); Cholesterol 218 mg/dL; Estimated Glomerular Filt Rate > 60; Glucose Random 86 mg/dL (60-115); HDL Cholesterol 56 mg/dL; LDL Cholesterol Calculated 146 mg/dl; Sodium 141 mmol/L (135-145); Total Protein 7.3 g/dL (6.5-8.0); Triglycerides 81 mg/dL
[2022-11-14 13:12] LABS: Free T4 (Free Thyroxine) 0.83 ng/dL (0.71-1.85); Thyroid Stimulating Hormone 1.46 uIU/mL (0.32-4.0)
[2022-11-14 13:21] LABS: Folate 9.6 ng/mL (> or = 4.0); Vitamin B12 293 pg/mL (200-900)
== END 2022-11-14 10:57 | disposition home or self-care (01) ==
LOC: HO.LAB 10:56
PROVIDERS: PCP Internal Medicine; Visit Provider Internal Medicine
DX: I10 Essential (primary) hypertension (principal); E78.00 Pure hypercholesterolemia, unspecified
CPT/HCPCS: 36415; 80053; 80061; 82607; 82746; 83880; 84439; 84443; 85025

== ENCOUNTER 2022-11-18 14:13 | Outpatient (AMB) | payer OTHER, SELFPAY ==
[2022-11-18 14:17] VITALS: BP 162/90; PULSE 89; O2SAT 99; BMI 28.3
--- NOTE | 2022-11-18 14:17 | MHC.PC.OV ---
Vital Signs 11/18/22 14:17 Height 5 ft 4 in Weight 165 lb BMI 28.3 BP 162/90 H Blood Pressure Location Lt brachial Position Sitting Pulse 89 Pulse Source Pulse Oximeter Temp Source Skin Pulse Oximetry (%) 99 Oxygen Delivery Method Room Air Intake Visit Reasons: 6W follow up- Rescheduled from 10/10 Intake Note: Patient is here to follow up on 6 week follow up Tear Down Man Required: No Allergies No Known Allergies Allergy (Verified 11/18/22 14:22) Medication List - Last Reconciled 11/18/22 by Marky Thrasher MD acetaminophen 650 mg (2 x 325 mg) PO Q4H PRN 30 days bisacodyl (Dulcolax (bisacodyl)) 10 mg (2 x 5 mg) PO ONCE 1 day hydroxyzine HCl 25 mg PO BID PRN lisinopril-hydrochlorothiazide 10-12.5 mg 1 tab PO DAILY mirtazapine 15 mg PO BEDTIME polyethylene glycol 3350 (Miralax) 238 grams PO ONCE Tobacco use date assessed: 11/18/22 Dental Screening Dental Screen Date: 11/18/22 Did you have a dental visit in the last 12 months?: Yes Did you have a dental problem in the last 6 months where you did not have access to dental care?: No HPI 6W follow up- Rescheduled from 10/10 HPI Details 62-year-old overweight female with a history of PDA, generalized anxiety disorder hypertension last seen in August 2022 and blood work was requested patient is here for follow-up patient had left ankle ORIF for fracture February 2022 complained of persistent pain and has been advised continued activity as tolerated.. Patient also has met with the staffing specialist in August 2022 for colon cancer screening. Awaiting schedules patient has the PDA and has been referred to Cardiology here was referred to congenital heart disease specialist in [facility] but she is on a waiting list number [phone] another option would be getting the director case management in [place] so will refer. Meanwhile patient has the blood pressure elevations still as for the cholesterol noted blood work results. Patient also has complains of wrist pain not numbness and is asking for something to help. [facility] Medical History Bimalleolar fracture of right ankle Patent ductus arteriosus Pulmonary artery hypertension Tobacco abuse Surgical History History of ankle surgery History of tubal ligation Family History Father Prostate cancer Mother Diabetes Dementia Sister No problems noted. Sister No problems noted. Sister Dementia Brother No problems noted. Brother Prostate cancer Son No problems noted. Son No problems noted. Daughter No problems noted. 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 How often do you have a drink containing alcohol?: Never 2. How many drinks containing alcohol do you have on a typical day when you are drinking?: 1 or 2 3. How often do you have six or more drinks on one occasion?: Never Total Score: 0 Score Reviewed/Action Taken: No KATHRINE-7 AMB Questionnaire KATHRINE-7 Date KATHRINE - 7 assessed: 04/24/22 Source: Developed by Drs. Jaquan Castaneda, Renetta Patiño, Ugo Patel and colleagues, with an educational dwayne from [employer]. Physical exam (Primary Care) Vital Signs: Last Vital Signs Pulse 89 11/18/22 14:17 BP 162/90 H 11/18/22 14:17 Pulse Ox 99 11/18/22 14:17 Oxygen Delivery Method Room Air 11/18/22 14:17 BMI result Body Mass Index 28.3 Tobacco/Smoking Status: Tobacco use Status Tobacco use date assessed 11/18/22 11/18/22 14:18 Patient Tobacco Use Status Current everyday Tobacco 11/18/22 14:18 Tobacco use type Cigarette 11/18/22 14:18 e-Cigarette/Vaping Use Never Used 11/18/22 14:18 Thrive Assessment: Date of Thrive Assessment Date Thrive assessed 04/24/22 11/18/22 14:18 Const General: alert; No acute distress Eyes Conjunctivae: conjunctivae normal Resp Auscultation: clear to auscultation bilaterally Cardio Rate: regular rate Rhythm: regular rhythm GI Inspection: Yes normal to inspection Extrem General: Yes normal to inspection and No edema Assessment and Plan Assessment & Plan (1) Hypertension: Code(s): I10 - Essential (primary) hypertension Plan: Continue with blood pressure medication. Decrease salt intake and exercise patient is on lisinopril hydrochlorothiazide. Blood pressure is elevated adjust medication (2) Generalized anxiety disorder: Comment: [facility] counselling Code(s): F41.1 - Generalized anxiety disorder Plan: Continue with counseling on mirtazapine and hydroxyzine increase in sertraline done to 50 mg as per patient. (3) Patent ductus arteriosus: Comment: murmur July 2022 last echocardiogramMain pulmonary artery dilated; root -4cm; mid 3.4cm; more distally 4cm. - PDA with continuous flow noted; peak gradient 143mmHg. Code(s): Q25.0 - Patent ductus arteriosus Plan: This is continued to be followed up.But schedule for cardiology is long (#33) waiting line- will refer to cardiology in [place] (4) Status post ORIF of fracture of ankle: Comment: February 2022 Code(s): Z98.890 - Other specified postprocedural states; Z87.81 - Personal history of (healed) traumatic fracture Plan: Ortho note appreciated continued activity as tolerated (5) Overweight (BMI 25.0-29.9): Code(s): E66.3 - Overweight Plan: Diet and exercise (6) Hypercholesterolemia: Code(s): E78.00 - Pure hypercholesterolemia, unspecified Plan: Avoid fried foods, chicken skin, eggs, butter margarine, pastries and meat. Be it pork or beef they have a lot of cholesterol LDL goal of less than 130 and triglyceride of less than 150. Cholesterol medications started (7) Bilateral wrist pain: Code(s): M25.531 - Pain in right wrist; M25.532 - Pain in left wrist Plan: Anti-inflammatory given Orders: Orders Comprehensive Met. Panel 3 Months I10 - Essential (primary) hypertension Lipid Panel 3 Months E78.00 - Pure hypercholesterolemia, unspecified, I10 - Essential (primary) hypertension Referrals Cardiology Referral Q25.0 - Patent ductus arteriosus Medications: New sertraline 50 mg PO DAILY 30 tabs 3RF F41.1 - Generalized anxiety disorder atorvastatin 10 mg PO BEDTIME 30 tabs 4RF E78.00 - Pure hypercholesterolemia, unspecified lisinopril-hydrochlorothiazide 20-12.5 mg 1 tab PO DAILY 30 tabs 4RF I10 - Essential (primary) hypertension meloxicam 7.5 mg PO DAILY 30 tabs 0RF M25.531 - Pain in right wrist, M25.532 - Pain in left wrist Discontinued lisinopril-hydrochlorothiazide 10-12.5 mg Discontinued Reason: Doctor's Order 1 tab PO DAILY 30 tabs 3RF I10 - Essential (primary) hypertension Coding Level of Care Code Est Pt Level 4 (14541) Diagnoses Hypertension I10 Generalized anxiety disorder F41.1 Patent ductus arteriosus Q25.0 Status post ORIF of fracture of ankle Z98.890; Z87.81 Overweight (BMI 25.0-29.9) E66.3 Hypercholesterolemia E78.00 Bilateral wrist pain M25.531; M25.532
== END 2022-11-18 14:54 | disposition home or self-care (01) ==
PROVIDERS: PCP Internal Medicine; Visit Provider Internal Medicine
DX: I10 Essential (primary) hypertension (principal); Z98.890 Other specified postprocedural states; Z87.81 Personal history of (healed) traumatic fracture; F41.1 Generalized anxiety disorder; Q25.0 Patent ductus arteriosus; E66.3 Overweight; E78.00 Pure hypercholesterolemia, unspecified; M25.531 Pain in right wrist; M25.532 Pain in left wrist
CPT/HCPCS: 99214

== ENCOUNTER 2022-12-19 09:16 | Outpatient (REF) | payer OTHER, SELFPAY | END 2022-12-19 09:17 | disposition home or self-care (01) | LOC: HO.HOSX 09:16 | PROVIDERS: Visit Provider Orthopaedic Surgery | DX: Z13.89 Encounter for screening for other disorder (principal) ==

== ENCOUNTER 2023-01-16 14:29 | Outpatient (AMB) | payer OTHER, SELFPAY ==
--- NOTE | 2023-01-16 14:32 | MHC.OFFVIS ---
Intake Vital Signs 01/16/23 14:33 Height 5 ft 4 in Weight 165 lb BMI 28.3 Intake Visit Reasons: OV-ORIF right ankle, 02/13/22 NE Intake Note: Francie is a 62 year old female who presents today for a follow up appointment of her right ankle, she is s/p Right ankle ORIF 02/13/22. Pateint reports that she is having pain and swelling of the right ankle. She feels that the ankle is very stiff. Allergies No Known Allergies Allergy (Verified 11/18/22 14:22) HPI OV-ORIF right ankle, 02/13/22 NE HPI Details Francie is a 62 year old woman who presents ~11 months S/P right ankle ORIF. Estonian patient. She complains of pain, swelling, and feeling stiffness in her ankle, which have not improved with PT. [facility] Medical History Bimalleolar fracture of right ankle Patent ductus arteriosus Pulmonary artery hypertension Tobacco abuse Surgical History History of ankle surgery History of tubal ligation Family History Father Prostate cancer Mother Diabetes Dementia Sister No problems noted. Sister No problems noted. Sister Dementia Brother No problems noted. Brother Prostate cancer Son No problems noted. Son No problems noted. Daughter No problems noted. 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 Cognitive needs: No Hearing needs: No Vision needs: No Review of Systems Const All systems reviewed & are unremarkable except as noted in HPI and below Physical Exam Vital Signs: BMI result Body Mass Index 28.3 Const General: no acute distress, alert and awake Orientation/consciousness: patient oriented x3 HEENT Head: Yes normocephalic and Yes atraumatic Eyes EOM: EOMs intact bilaterally Resp Effort & Inspection: normal respiratory effort and able to speak in complete sentences Cardio Jugular venous distension: no JVD Skin General skin exam: turgor normal Rashes: no rashes Neuro General: patient oriented x3 Extrem Other: Right Ankle: Well healed incision Vague tenderness about ankle No focal weakness or pain Psych Appearance: grossly normal Affect: normal affect Attitude: cooperative Assessment & Plan Assessment & Plan (1) Status post ORIF of fracture of ankle: Comment: February 2022 Code(s): Z98.890 - Other specified postprocedural states; Z87.81 - Personal history of (healed) traumatic fracture Plan: This is a 62 year old woman S/P right lateral malleolous ORIF, DOS: 02/13/22. She is doing well objectively but continues to have pain, swelling, and stiffness in her ankle. She has completed her course of PT, with limited improvement. I recommend continued activity as tolerated. Stretching exercises. She can follow up prn. Plan Scribed for Riley Lewis MD by John Howard, medical billing service, on 01/16/23 at 3:00 PM, EST. Coding Level of Care Code Est Pt Level 3 (27173) Diagnoses Status post ORIF of fracture of ankle Z98.890; Z87.81
[2023-01-16 14:33] VITALS: BMI 28.3
== END 2023-01-16 15:20 | disposition home or self-care (01) ==
PROVIDERS: PCP Internal Medicine; Visit Provider Orthopaedic Surgery
DX: Z47.89 Encounter for other orthopedic aftercare (principal); Z87.81 Personal history of (healed) traumatic fracture
CPT/HCPCS: 99213

== ENCOUNTER → 2023-01-16 14:29 | Outpatient (BNVA) | payer OTHER, SELFPAY | PROVIDERS: PCP Internal Medicine; Visit Provider Orthopaedic Surgery | DX: M25.571 Pain in right ankle and joints of right foot (principal); Z87.81 Personal history of (healed) traumatic fracture | CPT/HCPCS: 99212 ==

== ENCOUNTER 2023-02-19 14:55 | Outpatient (AMB) | payer OTHER, SELFPAY ==
--- NOTE | 2023-02-19 14:59 | MHC.OFFVIS ---
Intake Vital Signs 02/19/23 15:00 Height 5 ft 4 in Weight 167 lb BMI 28.7 Intake Visit Reasons: Annual/DO NOT RS Intake Note: Scribed for Allison Reilly CNM by [facility] scribe, on 02/19/2023 at 3:13 PM, EST. 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 She is doing well with no curb machine operator concerns. Attempting to eat a healthy diet with calcium and vitamin D. She tries to stay active with exercise, but limited due to trouble with legs . Not sexually active. She has not had a partner in years. Denies any vaginal dryness or irritation. STI testing offered; she declined. STD testing offered; she declined. Last pap smear; many years ago and reports normal. Last mammogram 05/27/2022, negative. Cologuard is UTD. Denies any family history of breast, ovarian or colon cancer. Denies family history of hypertension or diabetes. BP elevated while in office today, she reports being nervous abut her appointment today . [facility] Medical History Hypercholesterolemia Hypertension Generalized anxiety disorder Heart murmur Bimalleolar fracture of right ankle Patent ductus arteriosus Pulmonary artery hypertension Tobacco abuse Surgical History History of ankle surgery History of tubal ligation Family History Father Prostate cancer Mother Diabetes Dementia Sister No problems noted. Sister No problems noted. Sister Dementia Brother No problems noted. Brother Prostate cancer Son No problems noted. Son No problems noted. Daughter No problems noted. 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 Cognitive needs: No Hearing needs: No Vision needs: No Female Reproductive History Menstrual Menopause type: natural Total pregnancies: 3 Full term: 3 Number of Living Children: 3 Date of Mammogram: 05/27/22 (Birad 1) Review of Systems Const All systems reviewed & are unremarkable except as noted in HPI and below Reports as per HPI Eyes Reports no additional complaints ENT Reports no additional complaints Card Reports no additional complaints Resp Reports no additional complaints GI Reports as per HPI and Reports no additional complaints Reports as per HPI Musc Reports no additional complaints Skin/Breast Reports as per HPI Neuro Reports no additional complaints Psych Reports no additional complaints Endo Reports no additional complaints [place]/Lymph Reports no additional complaints Aller/Immun Reports no additional complaints Physical Exam Vital Signs: BMI result Body Mass Index 28.7 Const General: cooperative, healthy appearing, no acute distress, well developed and alert Orientation/consciousness: patient oriented x3 HEENT Head: Yes normal to inspection Eyes General: appearance normal, both eyes and all related structures Neck Neck: Yes normal visual inspection Thyroid: Thyroid normal Chest Chest palpation & inspection: normal inspection of the chest and other (no puckering, dimpling, peau de orange, retraction, discharge, masses) Breast/axilla inspection: normal inspection of the breasts Breast/axilla palpation: normal palpation of the breasts Resp Effort & Inspection: normal respiratory effort GI Inspection: Yes normal to inspection Palpation (GI): Soft to palpation Rectal Exam - Female: deferred General: Yes bladder normal to palpation External Female Exam: normal external appearance and normal appearance of the urethra Speculum Exam - Vagina: normal appearance of the vagina, normal palpation, normal vaginal discharge and other (atrophic changes, bled with pap, old vaginal sccaring) Speculum Exam - Cervix: normal appearance of the cervix and normal palpation Bimanual exam- vagina & uterus: normal bimanual exam, normal palpation, uterine size normal, bladder normal to palpation, normal palpation and non-tender Bimanual Exam- Adnexa, other: no masses Skin General skin exam: no rashes or lesions noted Rashes: no rashes Neuro General: patient oriented x3 Cognition (Neuro): normal cognition Extrem General: Yes normal to inspection Psych Attitude: cooperative Thought process: Normal thought process present Assessment & Plan Assessment & Plan (1) Encounter for annual routine gynecological examination: Code(s): Z01.419 - Encounter for gynecological examination (general) (routine) without abnormal findings Plan: Discussed: Current recommendations for pap smears per ASCCP guidelines. Breast awareness, periodic self breast exams and yearly mammogram. Maintain a healthy lifestyle, well balanced diet including Calcium 1,200 mg and Vitamin D 600 IU daily, and routine exercise. Contact the office with any postmenopausal bleeding. Pap done while in office today. Sign up for the patient portal if not already enrolled. All of her questions and concerns were addressed to the best of my ability. She will return in one year for AG. Coding Level of Care Code New Pt Prev Care 40-64y(28005) Diagnoses Encounter for annual routine gynecological examination Z01.419
[2023-02-19 15:00] VITALS: BMI 28.7
== END 2023-02-19 15:34 | disposition home or self-care (01) ==
LOC: HO.HWS 14:55
PROVIDERS: PCP Internal Medicine; Visit Provider Advanced Practice Midwife
DX: Z01.419 Encounter for gynecological examination (general) (routine) without abnormal findings (principal)
CPT/HCPCS: 99386

== ENCOUNTER 2023-02-19 14:55 | Outpatient (REF) | payer OTHER, SELFPAY ==
[2023-02-25 06:29] LABS: HPV mRNA E6/E7 rflx Not Detected (Not Detected)
== END 2023-02-19 14:56 | disposition home or self-care (01) ==
LOC: HO.LNP 14:55
PROVIDERS: PCP Internal Medicine; Visit Provider Advanced Practice Midwife
DX: Z01.419 Encounter for gynecological examination (general) (routine) without abnormal findings (principal); Z11.51 Encounter for screening for human papillomavirus (HPV)
CPT/HCPCS: 87624; 88142

== ENCOUNTER 2023-03-06 12:29 | Outpatient (AMB) | payer OTHER, SELFPAY ==
--- NOTE | 2023-03-06 12:39 | MHC.OFFVIS ---
Intake Intake Visit Reasons: OV-ORIF right ankle, 02/13/22 NE Intake Note: This is a 63 year old female who presents for a post op appointment for an ORIF of the right ankle on 02/13/22 with NE. She reports stiffness and pain. With certain movements her pain gets worse. Allergies No Known Allergies Allergy (Verified 03/06/23 12:41) Medication List - Last Reconciled 03/06/23 by Camryn Lee RN acetaminophen 650 mg (2 x 325 mg) PO Q4H PRN 30 days atorvastatin 10 mg PO BEDTIME bisacodyl (Dulcolax (bisacodyl)) 10 mg (2 x 5 mg) PO ONCE 1 day hydroxyzine HCl 25 mg PO BID PRN lisinopril-hydrochlorothiazide 20-12.5 mg 1 tab PO DAILY meloxicam 7.5 mg PO DAILY mirtazapine 15 mg PO BEDTIME polyethylene glycol 3350 (Miralax) 238 grams PO ONCE sertraline 50 mg PO DAILY HPI OV-ORIF right ankle, 02/13/22 NE HPI Details Francie is a 63 year old woman who presents ~1 year S/P right ankle ORIF. Brazilian patient. She complains of pain, swelling, and feeling stiffness in her ankle, which have not improved with PT. She would like to discuss removal of hardware. [facility] Medical History (Updated 02/19/23 @ 16:20 by Marky Thrasher MD) Encounter for annual routine gynecological examination Preoperative cardiovascular examination Heart murmur Cervical cancer screening Colon cancer screening Breast cancer screening by mammogram Annual physical exam Hypercholesterolemia Hypertension Generalized anxiety disorder Bimalleolar fracture of right ankle Patent ductus arteriosus Pulmonary artery hypertension Tobacco abuse Surgical History History of ankle surgery History of tubal ligation Family History Father Prostate cancer Mother Diabetes Dementia Sister No problems noted. Sister No problems noted. Sister Dementia Brother No problems noted. Brother Prostate cancer Son No problems noted. Son No problems noted. Daughter No problems noted. 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 Cognitive needs: No Hearing needs: No Vision needs: No Physical Exam Const General: no acute distress, alert and awake Orientation/consciousness: patient oriented x3 HEENT Head: Yes normocephalic and Yes atraumatic Eyes EOM: EOMs intact bilaterally Resp Effort & Inspection: normal respiratory effort and able to speak in complete sentences Cardio Jugular venous distension: no JVD Skin General skin exam: turgor normal Rashes: no rashes Neuro General: patient oriented x3 Extrem Other: Right Ankle: Well healed incision TTP over lateral hardware Psych Appearance: grossly normal Affect: normal affect Attitude: cooperative Results Reviewed Results Reviewed: I personally reviewed relevant radiographs. 1.? Healed distal fibular fracture with lateral plate and screws. No acute fracture or dislocation seen. 2.? There is a small retrocalcaneal enthesophyte. 3.? No acute fracture or dislocation Assessment & Plan Assessment & Plan (1) Status post ORIF of fracture of ankle: Comment: February 2022 Code(s): Z98.890 - Other specified postprocedural states; Z87.81 - Personal history of (healed) traumatic fracture Plan: This is a 63 year old woman S/P right lateral malleolous ORIF, DOS: 02/13/22. She is doing well objectively but has pain over the hardware. The fracture is healed and she would like the hardware removed. I think this is reasonable. I discussed the process of hardware removal. I discussed the risks benefits and alternatives including but not limited to the risk of pain, infection, stiffness, need for further surgery as well as potential medical complications. She expressed understanding and we will proceed forward accordingly. Coding Level of Care Code Est Pt Level 4 (66691) Diagnoses Status post ORIF of fracture of ankle Z98.890; Z87.81
== END 2023-03-06 13:23 | disposition home or self-care (01) ==
PROVIDERS: PCP Internal Medicine; Visit Provider Orthopaedic Surgery
DX: T84.84XA Pain due to internal orthopedic prosthetic devices, implants and grafts, initial encounter (principal); S82.831A Other fracture of upper and lower end of right fibula, initial encounter for closed fracture
CPT/HCPCS: 99214

== ENCOUNTER → 2023-03-06 12:29 | Outpatient (BNVA) | payer OTHER, SELFPAY | PROVIDERS: PCP Internal Medicine; Visit Provider Orthopaedic Surgery | DX: Z18.89 Other specified retained foreign body fragments (principal); Z98.890 Other specified postprocedural states; Z87.81 Personal history of (healed) traumatic fracture | CPT/HCPCS: 99212 ==

== ENCOUNTER 2023-04-28 09:44 | Outpatient (AMB) | payer OTHER, SELFPAY ==
[2023-04-28 09:50] VITALS: BP 144/86; PULSE 81; O2SAT 97; BMI 28.3
--- NOTE | 2023-04-28 09:50 | A.OFFPC_ITS ---
Vital Signs 04/28/23 09:50 Height 5 ft 4 in Weight 165 lb 0.4 oz BMI 28.3 BP 144/86 H Blood Pressure Location Lt brachial Position Sitting Pulse 81 Pulse Source Pulse Oximeter Pulse Oximetry (%) 97 Oxygen Delivery Method Room Air Intake Visit Reasons: PE Intake Note: Patient is here today for a physical. Grants Officer Required: Yes Grants Officer Language: Sinhala Allergies No Known Allergies Allergy (Verified 04/28/23 10:32) Medication List - Last Reconciled 04/28/23 by Marky Thrasher MD acetaminophen 650 mg (2 x 325 mg) PO Q4H PRN 30 days atorvastatin 10 mg PO BEDTIME bisacodyl (Dulcolax (bisacodyl)) 10 mg (2 x 5 mg) PO ONCE 1 day blood pressure monitor (Blood Pressure Kit) As directed hydroxyzine HCl 25 mg PO BID PRN lisinopril-hydrochlorothiazide 20-12.5 mg 1 tab PO DAILY meloxicam 7.5 mg PO DAILY mirtazapine 15 mg PO BEDTIME polyethylene glycol 3350 (Miralax) 238 grams PO ONCE sertraline 50 mg PO DAILY Tobacco use date assessed: 04/28/23 Dental Screening Dental Screen Date: 04/28/23 Did you have a dental visit in the last 12 months?: Yes Did you have a dental problem in the last 6 months where you did not have access to dental care?: No Was dental information given to patient?: Patient has dentist HPI PE HPI Details 63-year-old overweight female with hyper tension generalized anxiety disorder hypercholesterolemia history of PDA coming in for physical exam last seen in a November 2022 patient is here for physical exam. Mammograms up-to-date due next month. Review of the notes follows up with orthopedics had an ORIF on the right ankle(right lateral malleolar ORIF) February 2022 complains of stiffness . Patient expressed hardware removed. Before ankle surgery advised see cardiology but brings in schedule for Echo 05/06/2023 and will see cardiology [facility] .Maria Luisa [id number] interpret.3 daysa bloated, nausea , fevers, , recently cold last week , - no bowel problem. states sob on exertion but this has been for a year. hematuria 3 days ago. [facility] Medical History (Updated 04/28/23 @ 10:53 by Marky Thrasher MD) Annual physical exam Encounter for annual routine gynecological examination Preoperative cardiovascular examination Heart murmur Cervical cancer screening Colon cancer screening Breast cancer screening by mammogram Hypercholesterolemia Hypertension Generalized anxiety disorder Bimalleolar fracture of right ankle Patent ductus arteriosus Pulmonary artery hypertension Tobacco abuse Surgical History History of ankle surgery History of tubal ligation Family History Father Prostate cancer Mother Diabetes Dementia Sister No problems noted. Sister No problems noted. Sister Dementia Brother No problems noted. Brother Prostate cancer Son No problems noted. Son No problems noted. Daughter No problems noted. 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 1. Little interest or pleasure in doing things: not at all 2. Feeling down, depressed, or hopeless: several days 3. Trouble falling or staying asleep, or sleeping too much: not at all 4. Feeling tired or having little energy: not at all 5. Poor appetite or overeating: not at all 6. Feeling bad about yourself - or that you are a failure or have let yourself or your family down: not at all 7. Trouble concentrating on things, such as reading the newspaper or watching television: not at all 8. Moving or speaking so slowly that other people could have noticed. Or the opposite - being so fidgety or restless that you have been moving around a lot more than usual: not at all 9. Thoughts that you would be better off or of hurting yourself in some way: not at all Total score: 1 Depression Screening Interpretation: Positive Depression Screening Follow-up: Existing condition and In treatment Depression Screening Done: Yes Source: Developed by Drs. Jaquan Castaneda, Renetta Patiño, Ugo Patel and colleagues, with an educational dwayne from [employer]. Thrive Questionnaire Date Thrive assessed: 04/28/23 I am a: Patient What is your living situation today?: I do not have a steady places to live I am staying at a long term Within the past 12 months, did the food you bought not last and you didn't have the money to get more?: Never true Within the past 12 months, did you worry whether your food would run out before you got money to buy more?: Never true Do you have trouble paying for medicines?: No Do you have trouble getting transportation to medical appointments?: No Do you have trouble paying your heating and electricity bill?: No Do you have trouble taking care of your child, family member or friend?: No Do you have trouble with day-to-day activities such as bathing, preparing meals, shopping, managing finances, etc.?: No Are you currently unemployed and looking for a job?: No Are you interested in more education?: No THRIVE Score: 1 AUDIT C Alcohol Use Questionnaire (AUDIT-C) 1. How often do you have a drink containing alcohol?: Never 2. How many drinks containing alcohol do you have on a typical day when you are drinking?: 1 or 2 3. How often do you have six or more drinks on one occasion?: Never Total Score: 0 Score Reviewed/Action Taken: No KATHRINE-7 AMB Questionnaire KATHRINE-7 Date KATHRINE - 7 assessed: 04/28/23 Feeling nervous, anxious, or on edge: 0 = Not at all Not being able to stop or control worryin = Several days Worrying too much about different things: 1 = Several days Trouble relaxin = Not at all Being so restless that it is hard to sit still: 0 = Not at all Becoming easily annoyed or irritable: 0 = Not at all Feeling afraid as if something awful might happen: 0 = Not at all Total KATHRINE-7 score (0-4 normal; 5-9 mild; 10-14 moderate; 15-21 severe): 2 Source: Developed by Renetta Watson Kurt Kroenke and colleagues, with an educational dwayne from [employer]. Review of Systems Const Denies poor appetite and Denies weakness Eyes Denies no additional complaints ENT Reports Normal hearing present, Denies dizziness, Denies nasal congestion, Denies tinnitus and Denies sore throat Card Denies chest pain, Denies syncope, Denies rapid heart rate and Denies dyspnea Resp Denies cough and Denies dyspnea GI Denies change in stool character, Reports constipation, Denies diarrhea, Denies nausea and Denies vomiting Denies urinary frequency, Denies difficulty voiding and Denies dysuria Neuro Reports Normal hearing present, Denies confusion, Denies dizziness, Denies syncope and Denies weakness Psych Denies confusion Physical exam (Primary Care) Vital Signs: Last Vital Signs Pulse 81 04/28/23 09:50 BP 144/86 H 04/28/23 09:50 Pulse Ox 97 04/28/23 09:50 Oxygen Delivery Method Room Air 04/28/23 09:50 BMI result Body Mass Index 28.3 Tobacco/Smoking Status: Tobacco use Status Tobacco use date assessed 04/28/23 04/28/23 09:52 Patient Tobacco Use Status Current someday Tobacco 04/28/23 10:05 Tobacco use type Cigarette 04/28/23 09:52 e-Cigarette/Vaping Use Never Used 04/28/23 09:52 PHQ-9: PHQ-9 Score PHQ-9: Total score 1 04/28/23 10:05 Depression Screening Interpretation: Positive Depression Screening Follow-up: Existing condition and In treatment Thrive Assessment: Date of Thrive Assessment Date Thrive assessed 04/28/23 04/28/23 09:52 Const General: No confusion Orientation/consciousness: No confusion HENMT Head: Yes normocephalic Ears: external ears normal and TM's normal bilaterally Face and sinus: Yes normal facial exam Mouth: moist mucous membranes Throat: Yes tonsils normal Eyes Conjunctivae: conjunctivae normal Pupils: Equal, round and reactive pupils present and Pupil accommodation reflex normal Direct Ophthalmoscopy: normal light reflex Neck Neck: No lymphadenopathy Thyroid: Thyroid normal Chest Chest palpation & inspection: normal inspection of the chest Resp Effort & Inspection: normal respiratory effort and no audible wheezes Auscultation: clear to auscultation bilaterally, no crackles, no wheezes and lung sounds not diminished Cardio Rate: regular rate Rhythm: regular rhythm Peripheral pulses: radial pulses present and dorsalis pedis present GI Palpation (GI): no masses Auscultation: normal bowel sounds and normoactive bowel sounds Rectal Exam - Female: deferred Skin General skin exam: no rashes or lesions noted Rashes: no rashes Neuro General: No confusion Cranial nerves: Yes Equal, round and reactive pupils present and Yes Normal hearing present Cognition (Neuro): normal cognition Gait exam (Neuro): Normal gait present Motor exam (neuro): 5/5 motor strength present throughout Deep tendon reflexes (DTR's): Right brachioradialis reflex intensity grade: 2+, Left brachioradialis reflex intensity grade: 2+, Right patellar reflex intensity grade: 2+ and Left patellar reflex intensity grade: 2+ Extrem General: No edema Assessment and Plan Assessment & Plan (1) Annual physical exam: Code(s): Z00.00 - Encounter for general adult medical examination without abnormal findings (2) Hypertension: Code(s): I10 - Essential (primary) hypertension Plan: Continue with blood pressure medication. Decrease salt intake and exercise presently on lisinopril hydrochlorothiazide 20/12.5 mg once a day (3) Hypercholesterolemia: Code(s): E78.00 - Pure hypercholesterolemia, unspecified Plan: Avoid fried foods, chicken skin, eggs, butter margarine, pastries and meat. Be it pork or beef they have a lot of cholesterol LDL goal of less than 130 and triglyceride of less than 150 November 2022 last blood work on atorvastatin 10 mg at bedtime (4) Patent ductus arteriosus: Comment: murmur July 2022 last echocardiogramMain pulmonary artery dilated; root -4cm; mid 3.4cm; more distally 4cm. - PDA with continuous flow noted; peak gradient 143mmHg. Code(s): Q25.0 - Patent ductus arteriosus Plan: Continue to be monitored by Cardiology (5) Status post ORIF of fracture of ankle: Comment: February 2022 Code(s): Z98.890 - Other specified postprocedural states; Z87.81 - Personal history of (healed) traumatic fracture Plan: Orthopedic note appreciated and planned hardware removal? (6) Overweight (BMI 25.0-29.9): Code(s): E66.3 - Overweight Plan: Diet and exercise (7) Generalized anxiety disorder: Comment: [facility] counselling Code(s): F41.1 - Generalized anxiety disorder Plan: Continue with counseling and therapy (8) Hematuria: Code(s): R31.9 - Hematuria, unspecified Plan: urinalysis requested and US Abd. (9) RUQ abdominal pain: Code(s): R10.11 - Right upper quadrant pain Plan: US abd requested Orders: Orders UA CC w/rflx Micro + Cult Today R30.0 - Dysuria, R31.9 - Hematuria, unspecified Complete Blood Count Auto Diff Today E78.00 - Pure hypercholesterolemia, unspecified Lipid Panel Today E78.00 - Pure hypercholesterolemia, unspecified Vitamin D 25-OH Total Today E78.00 - Pure hypercholesterolemia, unspecified Comprehensive Met. Panel Today E78.00 - Pure hypercholesterolemia, unspecified Free T4 (Free Thyroxine) Today E78.00 - Pure hypercholesterolemia, unspecified Vitamin B12 and Folate Today E78.00 - Pure hypercholesterolemia, unspecified US abdomen complete Today R10.11 - Right upper quadrant pain, R31.9 - Hematuria, unspecified Medications: New blood pressure monitor (Blood Pressure Kit) As directed 1 ea 0RF I10 - Essential (primary) hypertension Coding Level of Care Code Est Pt Prev Care 40-64y(21974) Diagnoses Annual physical exam Z00.00 Hypertension I10 Hypercholesterolemia E78.00 Patent ductus arteriosus Q25.0 Status post ORIF of fracture of ankle Z98.890; Z87.81 Overweight (BMI 25.0-29.9) E66.3 Generalized anxiety disorder F41.1 Hematuria R31.9 RUQ abdominal pain R10.11
== END 2023-04-28 11:06 | disposition home or self-care (01) ==
PROVIDERS: Visit Provider Internal Medicine
DX: Z00.00 Encounter for general adult medical examination without abnormal findings (principal); I10 Essential (primary) hypertension; E78.00 Pure hypercholesterolemia, unspecified; Q25.0 Patent ductus arteriosus; Z98.890 Other specified postprocedural states; Z87.81 Personal history of (healed) traumatic fracture; E66.3 Overweight; F41.1 Generalized anxiety disorder; R31.9 Hematuria, unspecified; R10.11 Right upper quadrant pain
CPT/HCPCS: 99396

== ENCOUNTER 2023-04-28 11:16 | Outpatient (REF) | payer OTHER, SELFPAY ==
[2023-04-28 11:39] LABS: MANUAL DIFF FLAG NO
[2023-04-28 11:52] LABS: Basophils Absolute Auto 0.1 X10*3/uL (0.0-0.2); Basophils Percent Auto 0.8 % (0-2); Eosinophils Absolute Auto 0.2 X10*3/uL (0.0-0.4); Eosinophils Percent Auto 1.9 % (0-4); Hematocrit 40.6 % (37.0-47.0); Imm Gran Abs Auto 0.17 X10*3/uL (0.00-0.03); Imm Gran Pct Auto 1.9 % (0.0-0.4); Lymphocytes Absolute Auto 1.7 X10*3/uL (1.2-4.9); Lymphocytes Percent Auto 19.2 % (20-40); Mean Corpuscular Hemoglobin 30.6 pg (27.0-33.0); Mean Corpuscular Volume 95.5 fL (80.0-98.0); Mean Platelet Volume 9.2 fL (9.4-12.3); Monocytes Absolute Auto 0.7 X10*3/uL (0.1-1.2); Monocytes Percent Auto 7.4 % (2-11); Neutrophils Absolute Auto 6.2 x10*3/uL (2.0-8.3); Neutrophils Percent Auto 68.8 % (45-73); Platelet Count 460 X10*3/uL (160-400); Red Blood Count 4.25 X10*6/uL (4.20-5.50); Red Cell Distribution Width 12.8 % (11.0-16.0)
[2023-04-28 12:40] LABS: Folate 11.8 ng/mL (> or = 4.0); Vitamin B12 296 pg/mL (200-900)
[2023-04-28 12:49] LABS: Alanine Aminotransferase 19 U/L (0-31); Albumin Level 4.1 g/dL (3.5-5.0); Alkaline Phosphatase 177 U/L (39-117); Anion Gap 15 (12-20); Aspartate Amino Transferase 19 U/L (5-31); Bilirubin Total 0.5 mg/dL (0.0-1.0); Blood Urea Nitrogen 8 mg/dL (9-16); Calcium 9.9 mg/dL (8.4-10.2); Carbon Dioxide 31 mmol/L (22-29); Chloride 100 mmol/L (96-108); Cholesterol 226 mg/dL (<200); Estimated Glomerular Filt Rate > 60; Glucose Random 100 mg/dL (60-115); HDL Cholesterol 33 mg/dL (>40); LDL Cholesterol Calculated 170 mg/dL (<100); Potassium 4.2 mmol/L (3.3-5.1); Sodium 142 mmol/L (135-145); Total Protein 8.5 g/dL (6.5-8.0); Triglycerides 119 mg/dL (<150)
[2023-04-28 12:52] LABS: Free T4 (Free Thyroxine) 1.17 ng/dL (0.71-1.85); Vitamin D 25-OH Total 11.2 ng/mL (>30)
[2023-04-28 12:54] LABS: Appearance Urine Turbid; Color Urine Dark Yellow; Glucose Urine UA Negative (Negative); Leukocyte Esterase Urine Large (3+) (Negative); Nitrite Urine Negative (Negative); PH 5.5 (5.0-9.0); Specific Gravity - Urine 1.025 (1.005-1.025); UMIC TRIGGER UACC YES; Urine Blood Negative (Negative); Urine Ketones Trace mg/dL (Negative); Urine Protein 30 (1+) mg/dL (Neg-Trace)
[2023-04-28 13:16] LABS: Bacteria Urine 4+ (None Seen); RBC Urine 0-2 /HPF (0-2); UACC Culture Trigger YES; WBC Urine >50 /HPF (0-5)
== END 2023-04-28 11:17 | disposition home or self-care (01) ==
LOC: HO.LAB 11:16
PROVIDERS: PCP Internal Medicine; Visit Provider Internal Medicine
DX: I10 Essential (primary) hypertension (principal); E78.00 Pure hypercholesterolemia, unspecified
CPT/HCPCS: 36415; 80053; 80061; 81001; 82306; 82607; 82746; 84439; 85025; 87086

== ENCOUNTER 2023-05-19 10:12 | Outpatient (REF) | payer OTHER, SELFPAY ==
--- NOTE | ~2023-05-19 | US_ITS ---
EXAMINATION: US ABDOMEN COMPLETE CLINICAL INFORMATION: Right upper quadrant pain. COMPARISON: None available. TECHNIQUE: Real-time imaging of the abdominal viscera. FINDINGS: PANCREAS: Normal head and body, the tail is obscured by bowel gas. ABDOMINAL AORTA: The proximal, mid, and distal segments are normal in caliber. INFERIOR VENA CAVA: Visualized portions are normal. LIVER: The liver is normal in size. The liver contour is normal. There is diffuse increased liver parenchymal echogenicity, consistent with hepatic steatosis. No focal hepatic lesion. There is no intrahepatic biliary duct dilatation seen. GALLBLADDER: The gallbladder is contracted and filled with stones and sludge. Because of the contraction, it is not possible to evaluate wall thickness correctly. No evidence of pericholecystic fluid. COMMON BILE DUCT: Normal in caliber measuring 0.6 cm in diameter. RIGHT KIDNEY: Normal. No hydronephrosis. No renal calculi or focal parenchymal lesions. The kidney measures 9.3 cm in maximum dimension. LEFT KIDNEY: Normal. No hydronephrosis. No renal calculi or focal parenchymal lesions. The kidney measures 8.3 cm in maximum dimension. SPLEEN: Normal. The spleen measures 11.3 cm in maximum dimension. FREE FLUID: None. US/US abdomen complete IMPRESSION: 1. Hepatic steatosis. 2. Contracted gallbladder filled with stones and sludge.
== END 2023-05-19 10:13 | disposition home or self-care (01) ==
LOC: HO.US 10:12
PROVIDERS: PCP Internal Medicine; Visit Provider Internal Medicine
DX: R10.11 Right upper quadrant pain (principal); R31.9 Hematuria, unspecified
CPT/HCPCS: 76700

== ENCOUNTER 2023-05-29 14:01 | Outpatient (REF) | payer OTHER, SELFPAY ==
--- NOTE | ~2023-05-29 | MM_ITS ---
EXAMINATION: MM SCREENING DIGITAL BREAST TOMOSYNTHESIS, BILATERAL CLINICAL INFORMATION: Screening. Asymptomatic. COMPARISON: Mammography: This study is compared with prior exams dating back to 2022. TECHNIQUE: Digital breast tomosynthesis is performed in both the craniocaudal and mediolateral oblique views along with computer-aided detection (CAD). Synthesized 2D images are generated from the tomosynthesis. FINDINGS: There are scattered areas of fibroglandular density (ACR BI-RADS breast composition Category b). There are no significant masses, abnormal calcifications, or other abnormalities. MM/MM tomosynthesis screening BI IMPRESSION: No mammographic evidence of malignancy. ASSESSMENT: BI-RADS BI-RADS 1 - Negative RECOMMENDATION: Routine annual mammography screening. 1 year F/U This examination should not preclude the clinical evaluation of a suspicious palpable abnormality. This patient's information was entered into a reminder system with a target due date for their next mammogram.
== END 2023-05-29 14:02 | disposition home or self-care (01) ==
LOC: HO.MAMMO 14:01
PROVIDERS: PCP Internal Medicine; Visit Provider Nurse Practitioner Family
DX: Z12.31 Encounter for screening mammogram for malignant neoplasm of breast (principal)
CPT/HCPCS: 77063; 77067

== ENCOUNTER → 2023-05-29 14:45 | Outpatient (BNV) | payer OTHER, SELFPAY | PROVIDERS: PCP Internal Medicine; Visit Provider Radiology Diagnostic Radiology | DX: Z12.31 Encounter for screening mammogram for malignant neoplasm of breast (principal) | CPT/HCPCS: 77063; 77067 ==

== ENCOUNTER 2023-06-10 10:17 | Outpatient (AMB) | payer OTHER, SELFPAY ==
--- NOTE | 2023-06-10 10:19 | A.OFFVIS_ITS ---
Intake Vital Signs 06/10/23 10:28 Height 5 ft 4 in Weight 163 lb BMI 28.0 BP 161/89 H Blood Pressure Location Rt brachial Position Sitting Pulse 84 Intake Visit Reasons: Calculus of gallbladder Intake Note: Patient referred by PCP Dr. Thrasher for calculus of gallbladder. Patient c/o: on and off pain. bruising on skin. Abd US: 05-19-23. Subeditor Required: Yes Accompanied by: Self / Same As Patient Allergies No Known Allergies Allergy (Verified 06/10/23 10:25) HPI HPI Comments History of Present Illness Details Patient presents with longstanding history of symptomatic recurrent b iliary colic. She has bouts of epigastric/right upper quadrant pain radiating around to her back. Because of progression in frequency of symptoms, she presents here for further evaluation. She had a sonogram which demonstrated cholelithiasis. Patient has regular bowel habits. She has no other GI issues or complaints. She is unsure if she has never been jaundiced before. Chart was reviewed and patient evaluated [facility] Medical History Annual physical exam Encounter for annual routine gynecological examination Preoperative cardiovascular examination Heart murmur Cervical cancer screening Colon cancer screening Breast cancer screening by mammogram Hypercholesterolemia Hypertension Generalized anxiety disorder Bimalleolar fracture of right ankle Patent ductus arteriosus Pulmonary artery hypertension Tobacco abuse Surgical History History of ankle surgery History of tubal ligation Family History Father Prostate cancer Mother Diabetes Dementia Sister No problems noted. Sister No problems noted. Sister Dementia Brother No problems noted. Brother Prostate cancer Son No problems noted. Son No problems noted. Daughter No problems noted. 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 Cognitive needs: No Hearing needs: No Vision needs: No Physical Exam Vital Signs: Last Vital Signs Pulse 84 06/10/23 10:28 BP 161/89 H 06/10/23 10:28 BMI result Body Mass Index 28.0 Eyes Other: Anicteric Chest Other: Chest breath sounds bilaterally, HS 1 in 2 GI Other: Abdomen corpulent, soft, benign Assessment & Plan Assessment & Plan (1) RUQ abdominal pain: Code(s): R10.11 - Right upper quadrant pain (2) Recurrent biliary colic: Code(s): K80.50 - Calculus of bile duct without cholangitis or cholecystitis without obstruction (3) Cholelithiases: Comment: May 2023 Code(s): K80.20 - Calculus of gallbladder without cholecystitis without obstruction Plan The risks, benefits, alternatives laparoscopic possible open cholecystectomy reviewed the patient included but not limited to bleeding, infection, recurrence of symptoms, numbness, pain, scarring, bowel or bile duct injury or leak and the patient wishes to proceed. All questions answered. Arrangements were made for this. Coding Level of Care Code New Pt Level 5 (49932) Diagnoses RUQ abdominal pain R10.11 Recurrent biliary colic K80.50 Cholelithiases K80.20
[2023-06-10 10:28] VITALS: BP 161/89; PULSE 84; BMI 28.0
== END 2023-06-10 10:36 | disposition home or self-care (01) ==
PROVIDERS: PCP Internal Medicine; Referring Provider Internal Medicine; Visit Provider Surgery
DX: R10.11 Right upper quadrant pain (principal); K80.50 Calculus of bile duct without cholangitis or cholecystitis without obstruction; K80.20 Calculus of gallbladder without cholecystitis without obstruction
CPT/HCPCS: 99204

== ENCOUNTER → 2023-06-10 10:17 | Outpatient (BNVA) | payer OTHER, SELFPAY | PROVIDERS: PCP Internal Medicine; Referring Provider Internal Medicine; Visit Provider Surgery | DX: K80.50 Calculus of bile duct without cholangitis or cholecystitis without obstruction (principal); K80.20 Calculus of gallbladder without cholecystitis without obstruction; R10.11 Right upper quadrant pain | CPT/HCPCS: 99202 ==

== ENCOUNTER 2023-07-08 09:34 | Outpatient (AMB) | payer OTHER, SELFPAY ==
[2023-07-08 09:35] VITALS: BP 160/72; PULSE 88; O2SAT 98; BMI 28.0
--- NOTE | 2023-07-08 09:35 | MHC.PC.OV ---
Vital Signs 07/08/23 09:35 Height 5 ft 4 in Weight 163 lb 0.1 oz BMI 28.0 BP 160/72 H Blood Pressure Location Lt brachial Position Sitting Pulse 88 Pulse Source Pulse Oximeter Pulse Oximetry (%) 98 Oxygen Delivery Method Room Air Intake Visit Reasons: RUQ pain, hematuria Manager Sales Support Required: Yes Manager Sales Support Language: Pashto Allergies No Known Allergies Allergy (Verified 07/08/23 09:35) Medication List - Last Reconciled 07/08/23 by Maryk Thrasher MD acetaminophen 650 mg (2 x 325 mg) PO Q4H PRN 30 days atorvastatin 10 mg PO BEDTIME bisacodyl (Dulcolax (bisacodyl)) 10 mg (2 x 5 mg) PO ONCE 1 day blood pressure monitor (Blood Pressure Kit) As directed hydroxyzine HCl 25 mg PO BID PRN lisinopril-hydrochlorothiazide 20-12.5 mg 1 tab PO DAILY meloxicam 7.5 mg PO DAILY mirtazapine 15 mg PO BEDTIME polyethylene glycol 3350 (Miralax) 238 grams PO ONCE [rollator walker As directed] sertraline 50 mg PO DAILY Tobacco use date assessed: 07/08/23 Dental Screening Dental Screen Date: 04/28/23 HPI RUQ pain, hematuria HPI Details 63-year-old overweight female with hypertension hypercholesterolemia status post RF on the fracture of the ankle but planned hardware removal generalized anxiety disorder coming in for follow-up last seen in April 2023. Patient also has symptomatic recurrent biliary colic and has been scheduled to have cholecystectomy. Also noted April 2023 has seen Cardiology patient has history of patent ductus arteriosus with [id number] flow and this was heard during her 1st 1984 echocardiogram 05/06/2023 left ventricular end-diastolic 5.64 aortic root is 3.98 cm ascending aorta is 4.18 cm ejection fraction 60-65% grade 2 moderate diastolic dysfunction with pseudonormal left ventricular filling pattern and increased LA pressure. Left atrium is severely dilated pulmonary artery moderately dilated there is a large patent ductus arteriosus with continues left to right flow advised to undergo cardiac catheterization and possible transcatheter device closure of the PDA standard no endocarditis prophylaxis no requirements for further cardiac testing no requirements for precautions during surgery low cardiac risk. [place], ([id number]) GB 07/25/2023, CArdio 07/18/2023 [facility] Medical History Annual physical exam Encounter for annual routine gynecological examination Preoperative cardiovascular examination Heart murmur Cervical cancer screening Colon cancer screening Breast cancer screening by mammogram Hypercholesterolemia Hypertension Generalized anxiety disorder Bimalleolar fracture of right ankle Patent ductus arteriosus Pulmonary artery hypertension Tobacco abuse Surgical History History of ankle surgery History of tubal ligation Family History Father Prostate cancer Mother Diabetes Dementia Sister No problems noted. Sister No problems noted. Sister Dementia Brother No problems noted. Brother Prostate cancer Son No problems noted. Son No problems noted. Daughter No problems noted. 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 How often do you have a drink containing alcohol?: Never 2. How many drinks containing alcohol do you have on a typical day when you are drinking?: 1 or 2 3. How often do you have six or more drinks on one occasion?: Never Total Score: 0 Score Reviewed/Action Taken: No KATHRINE-7 AMB Questionnaire KATHRINE-7 Date KATHRINE - 7 assessed: 04/28/23 Source: Developed by Drs. Jaquan Castaneda, Renetta Patiño, Ugo Patel and colleagues, with an educational dwayne from [employer]. Physical exam (Primary Care) Vital Signs: Oxygen Delivery Method Room Air 07/08/23 09:35 Tobacco/Smoking Status: Tobacco use Status Tobacco use date assessed 07/08/23 07/08/23 09:36 Patient Tobacco Use Status Current someday Tobacco 07/08/23 09:36 Tobacco use type Cigarette 07/08/23 09:36 e-Cigarette/Vaping Use Never Used 07/08/23 09:36 Thrive Assessment: Date of Thrive Assessment Date Thrive assessed 04/28/23 07/08/23 09:36 Const General: alert; No acute distress Eyes Conjunctivae: conjunctivae normal Resp Auscultation: clear to auscultation bilaterally Cardio Rate: regular rate Rhythm: regular rhythm GI Inspection: Yes normal to inspection Extrem General: Yes normal to inspection and No edema Assessment and Plan Assessment & Plan (1) Recurrent biliary colic: Code(s): K80.50 - Calculus of bile duct without cholangitis or cholecystitis without obstruction Plan: Patient has a planned cholecystectomy. Sent word to the surgeon that July 17 pumping station engineer will have a cardiac catheterization with PDA closure to be done. (2) Hypertension: Code(s): I10 - Essential (primary) hypertension Plan: Continue with blood pressure medication. Decrease salt intake and exercise continue with lisinopril hydrochlorothiazide 20/12.5 mg once a day. BP high today - states has not taken BP med today (3) Hypercholesterolemia: Code(s): E78.00 - Pure hypercholesterolemia, unspecified Plan: Avoid fried foods, chicken skin, eggs, butter margarine, pastries and meat. Be it pork or beef they have a lot of cholesterol noted LDL to be elevated. Patient presently on atorvastatin 10 mg at bedtime. LDL goal of less than 130 and triglyceride of less than 150. Pending cardiac catheterization (4) Patent ductus arteriosus: Comment: murmur July 2022 last echocardiogramMain pulmonary artery dilated; root -4cm; mid 3.4cm; more distally 4cm. - PDA with continuous flow noted; peak gradient 143mmHg. Code(s): Q25.0 - Patent ductus arteriosus Plan: Cardiology notes appreciated catheterization planned and closure of the PDA. (5) Status post ORIF of fracture of ankle: Comment: February 2022 RIGHT Code(s): Z98.890 - Other specified postprocedural states; Z87.81 - Personal history of (healed) traumatic fracture Plan: Patient follows up with orthopedics and planned removal of hardware. (6) Generalized anxiety disorder: Comment: [facility] counselling Code(s): F41.1 - Generalized anxiety disorder Plan: Continue with present medication mirtazapine and sertraline. Medications: Refilled lisinopril-hydrochlorothiazide 20-12.5 mg 1 tab PO DAILY 90 tabs 2RF I10 - Essential (primary) hypertension atorvastatin 10 mg PO BEDTIME 90 tabs 2RF E78.00 - Pure hypercholesterolemia, unspecified meloxicam 7.5 mg PO DAILY 30 tabs 3RF M25.531 - Pain in right wrist, M25.532 - Pain in left wrist Coding Level of Care Code Est Pt Level 4 (64660) Diagnoses Recurrent biliary colic K80.50 Hypertension I10 Hypercholesterolemia E78.00 Patent ductus arteriosus Q25.0 Status post ORIF of fracture of ankle Z98.890; Z87.81 Generalized anxiety disorder F41.1
== END 2023-07-08 10:45 | disposition home or self-care (01) ==
PROVIDERS: PCP Internal Medicine; Visit Provider Internal Medicine
DX: K80.50 Calculus of bile duct without cholangitis or cholecystitis without obstruction (principal); I10 Essential (primary) hypertension; E78.00 Pure hypercholesterolemia, unspecified; Q25.0 Patent ductus arteriosus; Z98.890 Other specified postprocedural states; Z87.81 Personal history of (healed) traumatic fracture; F41.1 Generalized anxiety disorder
CPT/HCPCS: 99214

== ENCOUNTER 2023-08-01 11:58 | Outpatient (AMB) | payer OTHER, SELFPAY ==
[2023-08-01 12:15] VITALS: BP 162/98; PULSE 93; O2SAT 96; BMI 29.0
--- NOTE | 2023-08-01 12:15 | MHC.PC.OV ---
Vital Signs 08/01/23 12:15 Height 5 ft 4 in Weight 169 lb BMI 29.0 BP 162/98 H Blood Pressure Location Lt brachial Pulse 93 Pulse Source Pulse Oximeter Pulse Oximetry (%) 96 Oxygen Delivery Method Room Air Intake Visit Reasons: [facility] Cardiac Cath Allergies No Known Allergies Allergy (Verified 08/01/23 12:15) Medication List - Last Reconciled 08/01/23 by Marky Thrasher MD acetaminophen 650 mg (2 x 325 mg) PO Q4H PRN 30 days atorvastatin 10 mg PO BEDTIME bisacodyl (Dulcolax (bisacodyl)) 10 mg (2 x 5 mg) PO ONCE 1 day blood pressure monitor (Blood Pressure Kit) As directed hydroxyzine HCl 25 mg PO BID PRN lisinopril-hydrochlorothiazide 20-12.5 mg 1 tab PO DAILY meloxicam 7.5 mg PO DAILY mirtazapine 15 mg PO BEDTIME polyethylene glycol 3350 (Miralax) 238 grams PO ONCE [rollator walker As directed] sertraline 50 mg PO DAILY Tobacco use date assessed: 07/08/23 Dental Screening Dental Screen Date: 04/28/23 HPI [facility] Cardiac Cath HPI Details 63-year-old overweight female with a history of hypertension hypercholesterolemia generalized anxiety disorder and PDA last seen in July 2023. Review of the notes patient was supposed to have a gallbladder surgery. July 18, 2023 had the right heart catheterization with atrial septal defect closure through the right femoral vein under Dr. Pérez for PDA occlusion. She will need antibiotic prophylaxis for 6 months and was started on Lasix 20 mg once a day [facility] Medical History (Updated 08/01/23 @ 12:49 by Marky Thrasher MD) Annual physical exam Encounter for annual routine gynecological examination Preoperative cardiovascular examination Heart murmur Cervical cancer screening Colon cancer screening Breast cancer screening by mammogram Hypercholesterolemia Hypertension Generalized anxiety disorder Bimalleolar fracture of right ankle Patent ductus arteriosus Pulmonary artery hypertension Tobacco abuse Surgical History (Updated 06/10/23 @ 10:39 by Arnaldo Hope MD) History of ankle surgery History of tubal ligation Family History Father Prostate cancer Mother Diabetes Dementia Sister No problems noted. Sister No problems noted. Sister Dementia Brother No problems noted. Brother Prostate cancer Son No problems noted. Son No problems noted. Daughter No problems noted. 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 1. Little interest or pleasure in doing things: not at all 2. Feeling down, depressed, or hopeless: several days 3. Trouble falling or staying asleep, or sleeping too much: not at all 4. Feeling tired or having little energy: not at all 5. Poor appetite or overeating: not at all 6. Feeling bad about yourself - or that you are a failure or have let yourself or your family down: not at all 7. Trouble concentrating on things, such as reading the newspaper or watching television: not at all 8. Moving or speaking so slowly that other people could have noticed. Or the opposite - being so fidgety or restless that you have been moving around a lot more than usual: not at all 9. Thoughts that you would be better off or of hurting yourself in some way: not at all Total score: 1 Depression Screening Interpretation: Positive Depression Screening Follow-up: Existing condition and In treatment Depression Screening Done: Yes Source: Developed by Drs. Jaquan Castaneda, Renetta Patiño, Ugo Patel and colleagues, with an educational dwayne from [employer]. Thrive Questionnaire Date Thrive assessed: 04/28/23 AUDIT C Alcohol Use Questionnaire (AUDIT-C) 1. How often do you have a drink containing alcohol?: Never 2. How many drinks containing alcohol do you have on a typical day when you are drinking?: 1 or 2 3. How often do you have six or more drinks on one occasion?: Never Total Score: 0 Score Reviewed/Action Taken: No KATHRINE-7 AMB Questionnaire KATHRINE-7 Date KATHRINE - 7 assessed: 04/28/23 Source: Developed by Drs. Jaquan Castaneda, Renetta Patiño, Ugo Patel and colleagues, with an educational dwayne from [employer]. Physical exam (Primary Care) Vital Signs: Last Vital Signs Pulse 93 08/01/23 12:15 BP 162/98 H 08/01/23 12:15 Pulse Ox 96 08/01/23 12:15 Oxygen Delivery Method Room Air 08/01/23 12:15 BMI result Body Mass Index 29.0 Tobacco/Smoking Status: Tobacco use Status Tobacco use date assessed 07/08/23 08/01/23 12:21 Patient Tobacco Use Status Former Tobacco user 08/01/23 12:21 Tobacco use type Cigarette 08/01/23 12:21 e-Cigarette/Vaping Use Never Used 08/01/23 12:21 PHQ-9: PHQ-9 Score PHQ-9: Total score 1 08/01/23 12:21 Depression Screening Interpretation: Positive Depression Screening Follow-up: Existing condition and In treatment Thrive Assessment: Date of Thrive Assessment Date Thrive assessed 04/28/23 08/01/23 12:21 Const General: alert; No acute distress Eyes Conjunctivae: conjunctivae normal Resp Auscultation: clear to auscultation bilaterally Cardio Rate: regular rate Rhythm: regular rhythm GI Inspection: Yes normal to inspection Skin Full body images: 1. R groin hematoma and extending to the R thigh Extrem General: Yes normal to inspection and No edema Assessment and Plan Assessment & Plan (1) Patent ductus arteriosus: Comment: murmur July 2022 last echocardiogramMain pulmonary artery dilated; root -4cm; mid 3.4cm; more distally 4cm. - PDA with continuous flow noted; peak gradient 143mmHg. Closure of the PDA done July 2023 Code(s): Q25.0 - Patent ductus arteriosus Plan: Patient had a right heart catheterization with PDA closure July 2023 (2) Cholelithiases: Comment: May 2023 Code(s): K80.20 - Calculus of gallbladder without cholecystitis without obstruction Plan: Low-fat diet and has a planned cholecystectomy (3) Hypertension: Code(s): I10 - Essential (primary) hypertension Plan: Continue with blood pressure medication. Decrease salt intake and exercise (4) Hypercholesterolemia: Code(s): E78.00 - Pure hypercholesterolemia, unspecified Plan: Avoid fried foods, chicken skin, eggs, butter margarine, pastries and meat. Be it pork or beef they have a lot of cholesterol on atorvastatin (5) Hematoma of right inguinal region: Code(s): S30.1XXA - Contusion of abdominal wall, initial encounter Plan: Anti-inflammatory for pain. Meloxicam to call if the pain is worse. Advised to place heat on the area but discussed that the hematoma is going to get resolved. Coding Level of Care Code Est Pt Level 4 (08063) Diagnoses Patent ductus arteriosus Q25.0 Cholelithiases K80.20 Hypertension I10 Hypercholesterolemia E78.00 Hematoma of right inguinal region S30.1XXA
== END 2023-08-01 12:53 | disposition home or self-care (01) ==
PROVIDERS: PCP Internal Medicine; Visit Provider Internal Medicine
DX: Q25.0 Patent ductus arteriosus (principal); K80.20 Calculus of gallbladder without cholecystitis without obstruction; I10 Essential (primary) hypertension; E78.00 Pure hypercholesterolemia, unspecified; S30.1XXA Contusion of abdominal wall, initial encounter
CPT/HCPCS: 99214

== ENCOUNTER 2023-08-11 14:13 | Outpatient (AMB) | payer OTHER, SELFPAY ==
[2023-08-11 14:20] VITALS: BP 160/80; PULSE 81; O2SAT 99; BMI 29.0
--- NOTE | 2023-08-11 14:20 | MHC.OFFVIS ---
Vital Signs 08/11/23 14:20 Height 5 ft 4 in Weight 169 lb BMI 29.0 BP 160/80 H Blood Pressure Location Lt brachial Position Sitting Pulse 81 Pulse Source Monitor Pulse Oximetry (%) 99 Oxygen Delivery Method Room Air Intake Visit Reasons: preop/HS pt/ GB surgery- [facility] [place] Recruitment Consultant Required: Yes Recruitment Consultant Name: [id number] Allergies No Known Allergies Allergy (Verified 08/01/23 12:15) Medication List - Last Reconciled 08/11/23 by Yang Allen MD acetaminophen 650 mg (2 x 325 mg) PO Q4H PRN 30 days aspirin 81 mg PO DAILY atorvastatin 10 mg PO BEDTIME bisacodyl (Dulcolax (bisacodyl)) 10 mg (2 x 5 mg) PO ONCE 1 day blood pressure monitor (Blood Pressure Kit) As directed hydroxyzine HCl 25 mg PO BID PRN lisinopril-hydrochlorothiazide 20-12.5 mg 1 tab PO DAILY meloxicam 7.5 mg PO DAILY mirtazapine 15 mg PO BEDTIME polyethylene glycol 3350 (Miralax) 238 grams PO ONCE [rollator walker As directed] sertraline 50 mg PO DAILY HPI Comments Details: Francie returns for follow-up. Last year, she was seen in consultation regarding patent ductus arteriosus. She was having exertional shortness of breath and that led to congenital heart disease consultation with Dr. Glass. Subsequently, referred Dr. Pérez who performed PDA occlusion with the Amplatzer duct occluder. Overall, she states she is actually doing quite well. After the procedure she states her breathing is better. No other major complaints. Needs to go for gallbladder surgery. Possibly ankle surgery as well. [facility] Medical History (Updated 08/11/23 @ 15:05 by Yang Allen MD) Annual physical exam Encounter for annual routine gynecological examination Preoperative cardiovascular examination Heart murmur Cervical cancer screening Colon cancer screening Breast cancer screening by mammogram Hypercholesterolemia Hypertension Generalized anxiety disorder Bimalleolar fracture of right ankle Patent ductus arteriosus Pulmonary artery hypertension Tobacco abuse Surgical History (Updated 08/11/23 @ 15:02 by Yang Allen MD) Status post catheter-placed plug or coil occlusion of PDA History of ankle surgery History of tubal ligation Family History Father Prostate cancer Mother Diabetes Dementia Sister No problems noted. Sister No problems noted. Sister Dementia Brother No problems noted. Brother Prostate cancer Son No problems noted. Son No problems noted. Daughter No problems noted. 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 Cognitive needs: No Hearing needs: No Vision needs: Yes Review of Systems Const Denies weakness ENT Denies dizziness Card Denies chest pain, Denies chest pain with activity, Denies syncope, Denies rapid heart rate, Denies pedal edema, Denies edema, Denies leg edema, Denies lightheadedness, Denies palpitations, Denies dyspnea, Denies dyspnea on exertion and Denies orthopnea Resp Denies cough, Denies dyspnea and Denies dyspnea on exertion GI Denies hematochezia and Denies change in stool character Musc Denies abnormal gait, Denies muscle cramps, Denies muscle weakness, Denies numbness, Denies radiating pain into limb and Denies tingling Neuro Denies abnormal gait, Denies dizziness, Denies syncope, Denies numbness, Denies tingling and Denies weakness Endo Denies palpitations Physical Exam Vital Signs: Last Vital Signs Pulse 81 08/11/23 14:20 BP 160/80 H 08/11/23 14:20 Pulse Ox 99 08/11/23 14:20 Oxygen Delivery Method Room Air 08/11/23 14:20 BMI result Body Mass Index 29.0 Const General: comfortable and no acute distress Orientation/consciousness: patient oriented x3 HEENT Other: Unremarkable Head: Yes normal to inspection Neck Neck: Yes normal visual inspection Chest Chest palpation & inspection: normal inspection of the chest Resp Auscultation: clear to auscultation bilaterally Cardio Palpation: normal PMI Heart sounds: S1 normal heart sound present, S2 normal heart sound present, no gallops, no murmurs and no rubs GI Palpation (GI): Soft to palpation Back/Spine/Pelvis Other: unremarkable Skin General skin exam: no rashes or lesions noted Neuro General: patient oriented x3 Extrem General: Yes normal to inspection Psych Mental Status: mental status grossly normal Office Procedures EKG Details: EKG with sinus rhythm at 81/Min; leftward axis; right bundle-branch block; voltage criteria for LVH but could be normal variant; normal LA and prolongation of corrected QT to 518 milliseconds. [id number], Complete Assessment & Plan Assessment & Plan (1) Status post catheter-placed plug or coil occlusion of PDA: Code(s): Z87.74 - Personal history of (corrected) congenital malformations of heart and circulatory system Category: Surgical Plan: Status post PDA occlusion with Amplatzer duct occluder. Hemodynamics with elevated left heart filling pressures and pulmonary hypertension, thought to be predominantly pulmonary venous hypertension. She was advised diuretics but she has not been taking anything. We can start her on a small dose of Lasix. Clinically, not overtly volume overloaded. Antibiotic prophylaxis for about 6 months. (2) Cardiomyopathy: Code(s): I42.9 - Cardiomyopathy, unspecified Category: Medical Plan: Echocardiogram done at [facility] postprocedure shows LVEF of 40-45%. There was no evidence of residual PDA. Cardiomyopathy could be because of longstanding uncorrected PDA. Hopefully, expect LVEF to improve. Hypertension may play a role in cardiomyopathy as she has chronically high blood pressures. Coronary disease possible but no clear angina. We will recheck echo in 3 months. (3) Hypertension: Code(s): I10 - Essential (primary) hypertension Category: Medical Plan: We will stop the current dose of lisinopril/HCTZ. Increase the lisinopril to 40 mg daily. Check labs in a few days. Otherwise, probably add amlodipine and other medications and optimize her blood pressure. (4) Preoperative cardiovascular examination: Code(s): Z01.810 - Encounter for preprocedural cardiovascular examination Category: Medical Plan: Discussed with Dr. Pérez by Henry. May proceed with gallbladder surgery. Intermediate cardiac risk. Orders: Orders CA echo transthoracic complete 3 Months I42.9 - Cardiomyopathy, unspecified, Z87.74 - Personal history of (corrected) congenital malformations of heart and circulatory system Basic Metabolic Panel 1 Week I50.22 - Chronic systolic (congestive) heart failure B Type Natriuretic Peptide 1 Week I50.9 - Heart failure, unspecified Medications: New lisinopril 40 mg PO DAILY 90 tabs 3RF furosemide (Lasix) 20 mg PO DAILY 90 tabs 3RF Discontinued lisinopril-hydrochlorothiazide 20-12.5 mg Discontinued Reason: Doctor's Order 1 tab PO DAILY 90 tabs 2RF I10 - Essential (primary) hypertension Coding Level of Care Code Est Pt Level 4 (70567) Diagnoses Status post catheter-placed plug or coil occlusion of PDA Z87.74 Cardiomyopathy I42.9 Hypertension I10 Preoperative cardiovascular examination Z01.810 CPT Codes EKG - CPT: 46472-[id number], Complete ([id number])
== END 2023-08-11 14:50 | disposition home or self-care (01) ==
PROVIDERS: PCP Internal Medicine; Visit Provider Internal Medicine
DX: Z87.74 Personal history of (corrected) congenital malformations of heart and circulatory system (principal); I42.9 Cardiomyopathy, unspecified; I10 Essential (primary) hypertension; Z01.810 Encounter for preprocedural cardiovascular examination
CPT/HCPCS: 93010; 99214

== ENCOUNTER → 2023-08-11 14:13 | Outpatient (BNVA) | payer OTHER, SELFPAY | PROVIDERS: PCP Internal Medicine; Visit Provider Internal Medicine | DX: Z01.810 Encounter for preprocedural cardiovascular examination (principal); I42.9 Cardiomyopathy, unspecified; I10 Essential (primary) hypertension; Z87.74 Personal history of (corrected) congenital malformations of heart and circulatory system; R94.31 Abnormal electrocardiogram [ECG] [EKG]; I45.10 Unspecified right bundle-branch block | CPT/HCPCS: 93005; 99212 ==

== ENCOUNTER 2023-09-05 12:44 | Outpatient (AMB) | payer OTHER, SELFPAY ==
--- NOTE | 2023-09-05 12:45 | A.OFFVIS_ITS ---
Vital Signs 09/05/23 12:53 Height 5 ft 4 in Weight 167 lb 8.821 oz BMI 28.8 BP 154/94 H Intake Visit Reasons: repeat pap/30 mins Director Of Quality Required: Yes Director Of Quality Language: Math Interventionist Name: Miracle WELDON Information Interpreted: non-clinical & clinical Potash Flaker: Potash Flaker Present (Miracle WELDON) Accompanied by: Self / Same As Patient Allergies No Known Allergies Allergy (Verified 09/05/23 13:05) Post menopausal: Yes HPI Comments Details: Patient is here today for a repeat Pap due to a previous Pap was unsatisfactory due to obscuring inflammation. 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 ON LICENSE OF [facility] Medical History (Updated 08/11/23 @ 15:05 by Yang Allen MD) Annual physical exam Encounter for annual routine gynecological examination Preoperative cardiovascular examination Heart murmur Cervical cancer screening Colon cancer screening Breast cancer screening by mammogram Hypercholesterolemia Hypertension Generalized anxiety disorder Bimalleolar fracture of right ankle Patent ductus arteriosus Pulmonary artery hypertension Tobacco abuse Surgical History (Updated 08/11/23 @ 15:02 by Yang Allen MD) Status post catheter-placed plug or coil occlusion of PDA History of ankle surgery History of tubal ligation Family History Father Prostate cancer Mother Diabetes Dementia Sister No problems noted. Sister No problems noted. Sister Dementia Brother No problems noted. Brother Prostate cancer Son No problems noted. Son No problems noted. Daughter No problems noted. 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 Cognitive needs: No Hearing needs: No Vision needs: Yes Review of Systems Const All systems reviewed & are unremarkable except as noted in HPI and below Physical Exam Vital Signs: Last Vital Signs BP 154/94 H 09/05/23 12:53 BMI result Body Mass Index 28.8 Const General: cooperative, healthy appearing and no acute distress Orientation/consciousness: patient oriented x3 GI Inspection: Yes normal to inspection Palpation (GI): Soft to palpation and Other GI palpation findings present (Nontender) Rectal Exam - Female: visual inspection normal General: Yes bladder normal to palpation External Female Exam: normal appearance of the urethra Speculum Exam - Vagina: normal appearance of the vagina, normal palpation, normal vaginal discharge and vagina atrophic (Moderate) Speculum Exam - Cervix: normal appearance of the cervix, normal palpation and Other cervical findings present (Bled with Pap) Bimanual exam- vagina & uterus: normal bimanual exam, normal palpation, uterine size normal, bladder normal to palpation, normal palpation, uterine shape normal and non-tender Bimanual Exam- Adnexa, other: normal adnexae Neuro General: patient oriented x3 Assessment & Plan Assessment & Plan (1) Unsatisfactory cervical Papanicolaou smear: Code(s): R87.615 - Unsatisfactory cytologic smear of cervix Plan Repeat pap obtained. Advised to call the office if there is any postmenopausal bleeding. Return to the office for scheduled annual diesel automotive technician exam. All of her questions and concerns were addressed to the best of my ability and shared decision making. She is agreeable to the plan of care. This note is constructed using voice recognition software. While every effort has been made to ensure accuracy, rn registry errors may have been included. Orders: Orders Pap Smear Today R87.615 - Unsatisfactory cytologic smear of cervix Coding Level of Care Code Est Pt Level 3 (90942) Diagnoses Unsatisfactory cervical Papanicolaou smear R87.615
[2023-09-05 12:53] VITALS: BP 154/94; BMI 28.8
== END 2023-09-05 13:25 | disposition home or self-care (01) ==
LOC: HO.HWS 12:44
PROVIDERS: PCP Internal Medicine; Visit Provider Advanced Practice Midwife
DX: R87.615 Unsatisfactory cytologic smear of cervix (principal)
CPT/HCPCS: 99213

== ENCOUNTER 2023-09-05 12:44 | Outpatient (REF) | payer OTHER, SELFPAY | END 2023-09-05 12:45 | disposition home or self-care (01) | LOC: HO.LNP 12:44 | PROVIDERS: PCP Internal Medicine; Visit Provider Advanced Practice Midwife | DX: R87.615 Unsatisfactory cytologic smear of cervix (principal) | CPT/HCPCS: 88142; 99212 ==

== ENCOUNTER 2023-09-09 12:21 | Outpatient (AMB) | payer OTHER, SELFPAY ==
[2023-09-09 12:31] VITALS: BP 138/90; PULSE 84; BMI 28.8
--- NOTE | 2023-09-09 12:31 | MHC.PC.OV ---
Vital Signs 09/09/23 12:31 Height 5 ft 4 in Weight 168 lb BMI 28.8 BP 138/90 H Blood Pressure Location Lt brachial Position Sitting Pulse 84 Pulse Source Pulse Oximeter Oxygen Delivery Method Room Air Intake Visit Reasons: PDA, GB, Playground Official Required: No Allergies No Known Allergies Allergy (Verified 09/09/23 12:31) Tobacco use date assessed: 09/09/23 Dental Screening Dental Screen Date: 04/28/23 Did you have a dental visit in the last 12 months?: No Did you have a dental problem in the last 6 months where you did not have access to dental care?: No HPI PDA, GB, HPI Details 63 year old female with a PDA closed 07/2023, cholelithiasis, HTN, Hypercholesterol last seen 07/2023 echocardiogram showing left ventricular mildly dilated left ventricular wall thickness increased with [id number] left ventricular hypertrophy. EF 40-45% mild global hypokinesis of the left ventricle left atrium mildly dilated mild dilatation of the ascending aorta. Patient saw Cardiology in August for risk stratification patient was advised to start on Lasix advise antibiotic prophylaxis for about 6 months. Advised to stop lisinopril hydrochlorothiazide and to increase lisinopril to 40 mg once a day requested for echocardiogram in 3 months.. surgery not done yet as patient is in the correction. patient is very upset right now and teary - BP is high [facility] Medical History (Updated 08/11/23 @ 15:05 by Yang Allen MD) Annual physical exam Encounter for annual routine gynecological examination Preoperative cardiovascular examination Heart murmur Cervical cancer screening Colon cancer screening Breast cancer screening by mammogram Hypercholesterolemia Hypertension Generalized anxiety disorder Bimalleolar fracture of right ankle Patent ductus arteriosus Pulmonary artery hypertension Tobacco abuse Surgical History (Updated 09/09/23 @ 13:16 by Marky Thrasher MD) Status post catheter-placed plug or coil occlusion of PDA History of ankle surgery History of tubal ligation Family History Father Prostate cancer Mother Diabetes Dementia Sister No problems noted. Sister No problems noted. Sister Dementia Brother No problems noted. Brother Prostate cancer Son No problems noted. Son No problems noted. Daughter No problems noted. 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 How often do you have a drink containing alcohol?: Never 2. How many drinks containing alcohol do you have on a typical day when you are drinking?: 1 or 2 3. How often do you have six or more drinks on one occasion?: Never Total Score: 0 Score Reviewed/Action Taken: No KATHRINE-7 AMB Questionnaire KATHRINE-7 Date KATHRINE - 7 assessed: 04/28/23 Source: Developed by Drs. Jaquan Castaneda, Renetta Patiño, Ugo Patel and colleagues, with an educational dwayne from [employer]. Physical exam (Primary Care) Vital Signs: Last Vital Signs Pulse 84 09/09/23 12:31 BP 138/90 H 09/09/23 12:31 Oxygen Delivery Method Room Air 09/09/23 12:31 BMI result Body Mass Index 28.8 Tobacco/Smoking Status: Tobacco use Status Tobacco use date assessed 09/09/23 09/09/23 12:32 Patient Tobacco Use Status Former Tobacco user 09/09/23 12:32 Tobacco use type Cigarette 09/09/23 12:32 e-Cigarette/Vaping Use Never Used 09/09/23 12:32 Thrive Assessment: Date of Thrive Assessment Date Thrive assessed 04/28/23 09/09/23 12:32 Const General: alert; No acute distress Eyes Conjunctivae: conjunctivae normal Resp Auscultation: clear to auscultation bilaterally Cardio Rate: regular rate Rhythm: regular rhythm GI Inspection: Yes normal to inspection Extrem General: Yes normal to inspection and No edema Assessment and Plan Assessment & Plan (1) Cardiomyopathy: Code(s): I42.9 - Cardiomyopathy, unspecified Plan: Patient continues to be monitored by Cardiology (2) Status post catheter-placed plug or coil occlusion of PDA: Comment: 07/2023 Code(s): Z87.74 - Personal history of (corrected) congenital malformations of heart and circulatory system Plan: Endocarditis prophylaxis for the next 6 months. (3) Hypercholesterolemia: Code(s): E78.00 - Pure hypercholesterolemia, unspecified Plan: Avoid fried foods, chicken skin, eggs, butter margarine, pastries and meat. Be it pork or beef they have a lot of cholesterol on atorvastatin 10 mg once a day repeat blood work (4) Hypertension: Code(s): I10 - Essential (primary) hypertension Plan: Continue with blood pressure medication. Decrease salt intake and exercise on lisinopril 40 mg once a day recent change from Cardiology (5) Cholelithiases: Comment: May 2023 Code(s): K80.20 - Calculus of gallbladder without cholecystitis without obstruction Plan: Low-fat diet. Cholecystectomy on hold as the patient says she lives in the correction right now (6) Generalized anxiety disorder: Comment: [facility] counselling Code(s): F41.1 - Generalized anxiety disorder Plan: Continue with present medication. Patient presently stays in the correction, has no housing in lost job. Discussed that with the counselor that she is having to send us forms if we need for facilitation. Coding Level of Care Code Est Pt Level 4 (92538) Complex EM visit Add On G2211 Diagnoses Cardiomyopathy I42.9 Status post catheter-placed plug or coil occlusion of PDA Z87.74 Hypercholesterolemia E78.00 Hypertension I10 Cholelithiases K80.20 Generalized anxiety disorder F41.1
== END 2023-09-09 13:28 | disposition home or self-care (01) ==
PROVIDERS: PCP Internal Medicine; Visit Provider Internal Medicine
DX: I42.9 Cardiomyopathy, unspecified (principal); Z87.74 Personal history of (corrected) congenital malformations of heart and circulatory system; E78.00 Pure hypercholesterolemia, unspecified; I10 Essential (primary) hypertension; K80.20 Calculus of gallbladder without cholecystitis without obstruction; F41.1 Generalized anxiety disorder
CPT/HCPCS: 99214; G2211

== ENCOUNTER 2023-09-12 09:43 | Emergency (ER) | payer OTHER, SELFPAY ==
--- NOTE | ~2023-09-12 | CT_ITS ---
EXAMINATION: CT ABDOMEN AND PELVIS WITH CONTRAST CLINICAL INFORMATION: Pain. Left-sided nephrolithiasis COMPARISON: Abdominal ultrasound May 2023 TECHNIQUE: Multidetector volumetric images were obtained from the superior aspect of the liver through the pubic symphysis following administration 85 mL of Omnipaque 350 intravenous contrast. Sagittal and coronal reformatted images were obtained on the technologist's workstation. Oral contrast: Yes This CT examination was performed using dose optimization techniques as appropriate, variously including the following: *Automated exposure control *Adjustment of mA and/or kV according to patient size (this includes techniques or standardized protocols for targeted exams where dose is matched to indication/reason for exam; i.e. extremities or head) *Use of iterative reconstruction technique DLP: 592 mGy-cm FINDINGS: LUNG BASES: The visualized lung bases are unremarkable. LIVER, GALLBLADDER, AND BILIARY TREE: Mild fatty infiltration of the liver. Liver is normal in size and contour. Large gallstone in the gallbladder measuring 1.7 x 2.5 cm. Gallbladder otherwise normal. No biliary duct dilatation. PANCREAS: Unremarkable. SPLEEN: Unremarkable. ADRENAL GLANDS: Unremarkable. KIDNEYS AND URETERS: The kidneys are normal in size, shape, and attenuation. No hydronephrosis, hydroureter, or calculi seen. Small left renal cyst. No imaging follow-up recommended. No perinephric stranding. BLADDER: Unremarkable. GASTROINTESTINAL TRACT: The small and large bowel are unremarkable. The appendix is unremarkable. ABDOMINAL WALL: Small umbilical hernia containing fat. LYMPH NODES: Normal. VASCULAR: Unremarkable. PELVIC VISCERA: Small right ovarian cyst measuring 1.8 x 2.5 cm. No imaging follow-up recommended. May be a small partially calcified uterine fibroid. OSSEOUS STRUCTURES: Degenerative disc disease at L5-S1. CT/CT abdomen pelvis w IV con IMPRESSION: 1. No renal stones or hydronephrosis. 2. Fatty liver. 3. Large gallstone in the gallbladder. Gallbladder otherwise normal. 4. Small umbilical hernia containing fat. 5. Small right ovarian cyst. No imaging follow-up recommended. Fleischner guidelines were followed.
[2023-09-12 09:51] VITALS: BP 179/86; PULSE 74; RESP 20; TEMP 36.6; O2SAT 97; BMI 31.9
[2023-09-12 10:08] LABS: MANUAL DIFF FLAG NO
[2023-09-12 10:10] LABS: Basophils Absolute Auto 0.1 X10*3/uL (0.0-0.2); Basophils Percent Auto 0.5 % (0-2); Eosinophils Percent Auto 0.2 % (0-4); Hematocrit 41.9 % (37.0-47.0); Hemoglobin 14.4 g/dl (12.0-16.0); Imm Gran Abs Auto 0.03 X10*3/uL (0.00-0.03); Imm Gran Pct Auto 0.3 % (0.0-0.4); Lymphocytes Absolute Auto 1.6 X10*3/uL (1.2-4.9); Lymphocytes Percent Auto 14.8 % (20-40); Mean Corpuscular HGB Conc 34.4 g/dl (31.0-35.0); Mean Corpuscular Hemoglobin 31.4 pg (27.0-33.0); Mean Corpuscular Volume 91.5 fL (80.0-98.0); Mean Platelet Volume 9.6 fL (9.4-12.3); Monocytes Absolute Auto 0.4 X10*3/uL (0.1-1.2); Monocytes Percent Auto 3.6 % (2-11); Neutrophils Absolute Auto 8.8 x10*3/uL (2.0-8.3); Neutrophils Percent Auto 80.6 % (45-73); Platelet Count 318 X10*3/uL (160-400); Red Blood Count 4.58 X10*6/uL (4.20-5.50); Red Cell Distribution Width 12.7 % (11.0-16.0); White Blood Count 10.9 X10*3/uL (4.8-10.8)
[2023-09-12 10:35] LABS: Alanine Aminotransferase 21 U/L (0-31); Albumin Level 4.2 g/dL (3.5-5.0); Alkaline Phosphatase 109 U/L (39-117); Anion Gap 15 (12-20); Aspartate Amino Transferase 32 U/L (5-31); Bilirubin Total 0.4 mg/dL (0.0-1.0); Blood Urea Nitrogen 8 mg/dL (9-16); Calcium 9.4 mg/dL (8.4-10.2); Carbon Dioxide 24 mmol/L (22-29); Chloride 102 mmol/L (96-108); Creatinine Clr Calc Pharmacy 81.3; Estimated Glomerular Filt Rate > 60; Glucose Random 114 mg/dL (60-115); Potassium 4.3 mmol/L (3.3-5.1); Sodium 137 mmol/L (135-145); Total Protein 8.6 g/dL (6.5-8.0)
[2023-09-12 12:08] VITALS: BP 195/92; PULSE 68; RESP 16; TEMP 36.6; O2SAT 99
--- NOTE | 2023-09-12 12:15 | PC.NURSE ---
Patient noted to be in intense abdominal pain and blood pressure also noted to be elevated per vital signs. Provider made aware of patient and concerns.
--- NOTE | 2023-09-12 12:18 | ED_ITS ---
HPI - General Adult General Chief complaint: Abdominal Pain Stated complaint: ABD PAIN BACK PAIN Time Seen by Provider: 09/12/23 12:15 Source: patient Mode of arrival: ambulatory History of Present Illness HPI narrative: This is a 63yof with pmhx HTN, HLD, PDA closed 07/2023, cardiomyopathy (LVEF 40- 45%), pulmonary artery HTN, anxiety who presents for evaluation of left-sided abdominal pain. She states this started all of a sudden overnight. She states associated nausea and vomiting. She states no hematemesis. She states previously being diagnosed with kidney stones on this side. She states plan to have stones removed but needed heart surgery before being able to have her kidney stones removed. She states no chest pain or dyspnea. She states no fevers or chills. She states no falls or trauma. She states pain is located on her left lower side with radiation to left lower back. She states no dysuria or urinary frequency/urgency. Related Data Home Medications ?Medication ?Instructions ?Recorded ?Confirmed hydroxyzine HCl 25 mg tablet 25 mg PO BID PRN 11/18/22 08/11/23 mirtazapine 15 mg tablet 15 mg PO BEDTIME 11/18/22 08/11/23 aspirin 81 mg tablet,delayed 81 mg PO DAILY 08/11/23 08/11/23 release Previous Rx's ?Medication ?Instructions ?Recorded acetaminophen 325 mg tablet 650 mg (2 x 325 mg) PO Q4H PRN 02/15/22 Pain, Mild (Pain Scale 1-3) 30 days #20 tabs bisacodyl 5 mg tablet,delayed 10 mg (2 x 5 mg) PO ONCE 1 day #2 08/23/22 release (Dulcolax (bisacodyl)) tabs polyethylene glycol 3350 17 238 g PO ONCE #238 grams 08/23/22 gram/dose oral powder (Miralax) sertraline 50 mg tablet 50 mg PO DAILY #30 tabs 12/06/22 blood pressure monitor (Blood #1 ea 05/05/23 Pressure Kit) rollator walker #1 ea 05/30/23 atorvastatin 10 mg tablet 10 mg PO BEDTIME #90 tabs 07/08/23 meloxicam 7.5 mg tablet 7.5 mg PO DAILY #30 tabs 07/08/23 furosemide 20 mg tablet (Lasix) 20 mg PO DAILY #90 tabs 08/11/23 lisinopril 40 mg tablet 40 mg PO DAILY #90 tabs 08/11/23 Allergies Allergy/AdvReac Type Severity Reaction Status Date / Time No Known Allergies Allergy Verified 09/12/23 09:53 Review of Systems 2 Review of Systems: ROS as per HPI [facility] Past Medical History Medical History (Updated 09/12/23 @ 14:04 by Surjit Deras MD) Annual physical exam Encounter for annual routine gynecological examination Preoperative cardiovascular examination Heart murmur Cervical cancer screening Colon cancer screening Breast cancer screening by mammogram Hypercholesterolemia Hypertension Generalized anxiety disorder Bimalleolar fracture of right ankle Patent ductus arteriosus Pulmonary artery hypertension Tobacco abuse Surgical History (Updated 09/09/23 @ 13:16 by Marky Thrasher MD) Status post catheter-placed plug or coil occlusion of PDA History of ankle surgery History of tubal ligation Family History Family History Father Prostate cancer Mother Diabetes Dementia Sister No problems noted. Sister No problems noted. Sister Dementia Brother No problems noted. Brother Prostate cancer Son No problems noted. Son No problems noted. Daughter No problems noted. Social History Social History Household Members Other:: lives with her daughter Housing: Apartment Alcohol intake: current Alcohol intake frequency: holidays/special occasions only Comment: ONCE A MONTH 2 CANS Patient Tobacco Use Status: Former Tobacco user Tobacco use type: Cigarette Cigarettes Per Day: 2 Years Smoked: stopped 03/2023 Smoked in Last 30 Days: No e-Cigarette/Vaping Use: Never Used Second Hand Smoke Exposure: Yes Use of substances other than those prescribed or required for medical reasons: No Advance Directives: Yes Advance Directives on File: Yes Advance Directives Date on File: 02/19/22 service: No Current occupational status: employed 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 Cognitive needs: No Hearing needs: No Vision needs: Yes Physical Exam ED Vital Signs: Vital Signs - 24 hr 09/12/23 09:51 09/12/23 12:08 Temperature 97.8 F 97.8 F Pulse Rate 74 68 Respiratory Rate 20 16 Blood Pressure 179/86 H 195/92 H Pulse Oximetry 97 99 Oxygen Delivery Method Room Air Room Air BMI result Body Mass Index 31.9 Gen: NAD, appears uncomfortable, AOx3 HEENT: NCAT, EOMI, normal conjunctiva CV: RRR Pulm: CTAB, no increased work of breathing GI: Soft, NTND, no rebound, guarding or rigidity MSK: No bilateral CVA tenderness Neuro: Grossly non focal Medications Administered Discontinued Medications Generic Name Dose Route Start Last Admin Trade Name Dread PRN Reason Stop Dose Admin Lactated Ringer's 1,000 mls @ 999 mls/hr 09/12/23 12:17 09/12/23 12:29 Lr IV 09/12/23 13:17 999 mls/hr .Q1H1M ONE Administration Iohexol 100 ml 09/12/23 13:04 09/12/23 13:05 Iohexol 350 Mg/Ml 100 Ml Infus..Btl IV 09/12/23 13:05 85 ml ONCE ONE Administration Ketorolac Tromethamine 15 mg 09/12/23 12:17 09/12/23 12:30 Ketorolac Tromethamine 15 Mg/Ml Vial IVPUSH 09/12/23 12:18 15 mg ONCE ONE Administration Ondansetron HCl 4 mg 09/12/23 12:17 09/12/23 12:30 Ondansetron Hcl 4 Mg/2 Ml Vial IVPUSH 09/12/23 12:18 4 mg ONCE ONE Administration Medical Decision Making Medical Decision Making MDM Narrative: Differential diagnosis includes, but is not limited to nephrolithiasis, gastritis, biliary colic, appendicitis, pancreatitis. Patient is afebrile and hemodynamically stable on room air. She is hypertensive and reports not taking her antihypertensive this morning and hypertension is likely further exacerbated given pain. This is not hypertensive emergency. Exam is benign and reassuring. I reviewed and interpreted labs, which are noncontributory. Of note, there is mild leukocytosis with white blood cell count 10.9, which is likely reactive in nature secondary to pain. Urinalysis reviewed and interpreted by me, which is unremarkable. Patient is provided 4 mg IV Zofran, 15 mg IV Toradol and 1 L IV lactated Ringer's. CT imaging demonstrates no renal stones or hydronephrosis, fatty liver, large gallstone in the gallbladder and gallbladder otherwise normal, small umbilical hernia containing fat, small ovarian cyst with no imaging follow-up recommended. On re-examination, patient is well-appearing and in no acute distress. ?Patient states symptoms have resolved. Etiology of symptoms are unclear, but?there is no indication for further emergent evaluation in this otherwise well-appearing patient as above. ?Patient is provided written and verbal instructions, educational materials, recommendations for outpatient follow-up, strict return precautions and teach back is performed. ?Patient states understanding and agreement with plan of care. ?Patient is discharged home in stable and improved condition. Admission/Observation Consideration of admission/observation: Escalation of care including admission/observation considered Lab Data MDM Lab Attestation statement: I reviewed the patient's lab results. 09/12/23 10:02 09/12/23 10:02 Labs: Lab Results 09/12/23 09/12/23 Range/Units 10:02 12:15 WBC 10.9 H (4.8-10.8) X10*3/uL RBC 4.58 (4.20-5.50) X10*6/uL Hgb 14.4 (12.0-16.0) g/dl Hct 41.9 (37.0-47.0) % MCV 91.5 (80.0-98.0) fL MCH 31.4 (27.0-33.0) pg MCHC 34.4 (31.0-35.0) g/dl RDW 12.7 (11.0-16.0) % Plt Count 318 D (160-400) X10*3/uL MPV 9.6 (9.4-12.3) fL Immature Gran % (Auto) 0.3 (0.0-0.4) % Neut % (Auto) 80.6 H (45-73) % Lymph % (Auto) 14.8 L (20-40) % Cowley % (Auto) 3.6 (2-11) % Eos % (Auto) 0.2 (0-4) % Baso % (Auto) 0.5 (0-2) % Lymph # (Auto) 1.6 (1.2-4.9) X10*3/uL [place] # (Auto) 0.4 (0.1-1.2) X10*3/uL Eos # (Auto) 0.0 (0.0-0.4) X10*3/uL Baso # (Auto) 0.1 (0.0-0.2) X10*3/uL Abs Immat Gran (auto) 0.03 (0.00-0.03) X10*3/uL Absolute Neuts (auto) 8.8 H (2.0-8.3) x10*3/uL Absolute Nucleated RBC 0.000 (0.0-0.012) X10*3/uL Nucleated RBC % (auto) 0.0 (0.0-0.2) /100WBC Sodium 137 (135-145) mmol/L Potassium 4.3 (3.3-5.1) mmol/L Chloride 102 (96-108) mmol/L Carbon Dioxide 24 (22-29) mmol/L Anion Gap 15 (12-20) BUN 8 L (9-16) mg/dL Creatinine 0.68 (0.5-1.4) mg/dL Estim Creat Clear Calc 81.3 Estimated GFR > 60 Random Glucose 114 (60-115) mg/dL Calcium 9.4 (8.4-10.2) mg/dL Total Bilirubin 0.4 (0.0-1.0) mg/dL AST 32 H (5-31) U/L ALT 21 (0-31) U/L Alkaline Phosphatase 109 (39-117) U/L Total Protein 8.6 H (6.5-8.0) g/dL Albumin 4.2 (3.5-5.0) g/dL Lipase 19 (8-78) U/L Urine Color Yellow Urine Appearance Clear Urine pH 7.5 (5.0-9.0) Ur Specific [place] 1.015 (1.005-1.025) Urine Protein Negative (Neg-Trace) mg/dL Urine Glucose (UA) Negative (Negative) mg/dL Urine Ketones Trace (Negative) mg/dL Urine Blood Negative (Negative) Urine Nitrite Negative (Negative) Ur Leukocyte Esterase Trace H (Negative) Urine RBC 0-2 (0-2) /HPF Urine WBC 0-5 (0-5) /HPF Ur Squamous Epith Cells 3-5 (0-2) /HPF Urine Bacteria None Seen (None Seen) Hyaline Casts 0-2 (0-2) /LPF Radiology Impression Discussion of test interpretation with radiology: I have reviewed the radiologist's reading. Radiologist Impression: IMPRESSION: 1. No renal stones or hydronephrosis. 2. Fatty liver. 3. Large gallstone in the gallbladder. Gallbladder otherwise normal. 4. Small umbilical hernia containing fat. 5. Small right ovarian cyst. No imaging follow-up recommended. Fleischner guidelines were followed. Dictated By: Leisa Martinez MD Signed By: <Electronically signed by Leisa Martinez MD in OV> 09/12/23 1322 Discharge Plan Discharge Clinical Impression: Abdominal pain Patient Disposition: Home, Self-Care Instructions: Abdominal Pain (ED) Additional Instructions: You were seen and evaluated in the emergency room. Your vital signs were normal and he did not have fever. ? Your blood work was normal. Your CT scan was normal did not show any emergent or surgical abnormality. You did not have any kidney stones. Please follow-up with your primary care doctor in the next 5-7 days. ? Please return to the emergency room if you develop any worsening symptoms including, but not limited to chest pain, difficulty breathing, abdominal pain, nausea/vomiting or inability to eat/drink. Fue atendido y evaluado en la nicholas de emergencias. Mary signos vitales geoff normales y no ten?a fiebre. ? Tu an?lisis de rigo fue normal. Avalos tomograf?a computarizada fue normal y no mostr? ninguna anomal?a emergente o quir?rgica. No ten?as twyla?n c?lculo renal. Jason un seguimiento con avalos m?dico de atenci?n primaria en los pr?ximos 5 a 7 d?as. ? Regrese a la nicholas de emergencias si presenta alg?n s?ntoma que empeore, incluidos, entre otros, dolor en el pecho, dificultad para respirar, dolor abdominal, n?useas/v?mitos o incapacidad para comer/beber. Prescriptions: No Action sertraline 50 mg tablet 50 mg PO DAILY Qty: 30 3RF (DME) blood pressure monitor [Blood Pressure Kit] Kit See Rx Instructions .ROUTE .MEDSUPPLY Qty: 1 0RF Rx Instructions: As directed (DME) rollator walker See Rx Instructions .Route .MEDSUPPLY Qty: 1 0RF Rx Instructions: As directed acetaminophen 325 mg Tablet 650 mg PO Q4H PRN (Reason: Pain, Mild (Pain Scale 1-3)) 30 Days Qty: 20 0RF hydroxyzine HCl 25 mg tablet 25 mg PO BID PRN mirtazapine 15 mg tablet 15 mg PO BEDTIME atorvastatin 10 mg tablet 10 mg PO BEDTIME Qty: 90 2RF meloxicam 7.5 mg tablet 7.5 mg PO DAILY Qty: 30 3RF bisacodyl [Dulcolax (bisacodyl)] 5 mg tablet,delayed release (DR/EC) 10 mg PO ONCE 1 Days Qty: 2 0RF Rx Instructions: take 2 tabs at noon the day before your colonoscopy polyethylene glycol 3350 [Miralax] 17 gram/dose powder 238 g PO ONCE Qty: 238 0RF Rx Instructions: As directed by gastroenterology department at [facility] aspirin 81 mg tablet,delayed release (DR/EC) 81 mg PO DAILY furosemide [Lasix] 20 mg tablet 20 mg PO DAILY Qty: 90 3RF lisinopril 40 mg tablet 40 mg PO DAILY Qty: 90 3RF Print Language: Thai
[2023-09-12 12:22] LABS: Appearance Urine Clear; Color Urine Yellow; Glucose Urine UA Negative (Negative); Leukocyte Esterase Urine Trace (Negative); Nitrite Urine Negative (Negative); PH 7.5 (5.0-9.0); Specific Gravity - Urine 1.015 (1.005-1.025); UMIC TRIGGER UACC YES; Urine Blood Negative (Negative); Urine Ketones Trace mg/dL (Negative); Urine Protein Negative (Neg-Trace)
[2023-09-12 12:24] LABS: Bacteria Urine None Seen (None Seen); Hyaline Casts Urine 0-2 /LPF (0-2); RBC Urine 0-2 /HPF (0-2); WBC Urine 0-5 /HPF (0-5)
[2023-09-12] MEDS: Lactated Ringers 1,000 ML 999 ML IV (12:29)
[2023-09-12] MEDS: ondansetron HCL 4 MG/2 ML VIAL IVPUSH (12:30)
[2023-09-12] MEDS: Ketorolac Tromethamine 15 MG/ML VIAL IVPUSH (12:30)
[2023-09-12 12:36] LABS: Lipase 19 U/L (8-78)
[2023-09-12] MEDS: iohexoL 350 MG/ML 100 ML INFUS..BTL IV (13:05)
--- NOTE | 2023-09-12 13:57 | PC.NURSE ---
Patient ambulate to bathroom independently, fluids continued after patient back in bed.
[2023-09-12 14:45] VITALS: BP 178/103; PULSE 78; RESP 18; TEMP 37.1; O2SAT 96
== END 2023-09-12 14:45 | disposition home or self-care (01) ==
PROVIDERS: Emergency Provider Emergency Medicine; PCP Internal Medicine
DX: R10.32 Left lower quadrant pain (principal); R11.2 Nausea with vomiting, unspecified; Z79.899 Other long term (current) drug therapy
CPT/HCPCS: 36415; 74177; 80053; 81001; 83690; 85025; 96361; 96374; 96375; 99284; J1885; J2405; J7120; Q9967

== ENCOUNTER 2023-09-22 14:13 | Outpatient (AMB) | payer OTHER, SELFPAY ==
--- NOTE | 2023-09-22 14:17 | A.OFFVIS_ITS ---
Vital Signs 09/22/23 14:24 Height 5 ft 1 in Weight 169 lb 6 oz BMI 32.0 BP 156/92 H Blood Pressure Location Lt brachial Position Sitting Pulse 95 Intake Visit Reasons: RUQ pain, gallstones Intake Note: Patient is seen in office for right upper quadrant pain, gallstones. Pt c/o: went to ED on 09/12/23 due to increase pain, and had imaging done, denies nausea, vomit, diarrhea, constipation Astrophysics Professor Required: Yes Astrophysics Professor Language: Cardiovascular Physician Assistant Name: Ольга WELDON Information Interpreted: non-clinical & clinical Accompanied by: Self / Same As Patient Allergies No Known Allergies Allergy (Verified 09/22/23 14:23) HPI Comments Details: Patient was seen several months ago for recurrent biliary colic. She was to have surgery but required anesthesia cardiac clearance. She was using seen in the emergency department because of recurrent biliary symptoms. [facility] Medical History Annual physical exam Encounter for annual routine gynecological examination Preoperative cardiovascular examination Heart murmur Cervical cancer screening Colon cancer screening Breast cancer screening by mammogram Hypercholesterolemia Hypertension Generalized anxiety disorder Bimalleolar fracture of right ankle Patent ductus arteriosus Pulmonary artery hypertension Tobacco abuse Surgical History Status post catheter-placed plug or coil occlusion of PDA History of ankle surgery History of tubal ligation Family History Father Prostate cancer Mother Diabetes Dementia Sister No problems noted. Sister No problems noted. Sister Dementia Brother No problems noted. Brother Prostate cancer Son No problems noted. Son No problems noted. Daughter No problems noted. 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 Once again, risks, benefits, alternatives of the procedure reviewed with the patient which included but not limited to bleeding, infection, recurrence of symptoms, numbness, pain, scarring, bowel or bile duct injury or leak and the patient wishes to proceed. We will do so when she has been cleared by the photoengraving apprentice. All questions answered. Coding Level of Care Code Est Pt Level 5 (31484) Diagnoses Recurrent biliary colic K80.50
[2023-09-22 14:24] VITALS: BP 156/92; PULSE 95; BMI 32.0
== END 2023-09-22 14:38 | disposition home or self-care (01) ==
PROVIDERS: PCP Internal Medicine; Visit Provider Surgery
DX: K80.50 Calculus of bile duct without cholangitis or cholecystitis without obstruction (principal)
CPT/HCPCS: 99214

== ENCOUNTER → 2023-09-22 14:13 | Outpatient (BNVA) | payer OTHER, SELFPAY | PROVIDERS: PCP Internal Medicine; Visit Provider Surgery | DX: K80.50 Calculus of bile duct without cholangitis or cholecystitis without obstruction (principal) | CPT/HCPCS: 99212 ==

== ENCOUNTER → 2023-10-28 09:42 | Outpatient (REF) | payer OTHER, SELFPAY ==
--- NOTE | 2023-10-28 09:45 | CA_ITS ---
Transthoracic Echocardiogram Patient (Last, First, Middle): Francie Li, Gender: Female Date of : 1960 Age: 63 Procedure Date: 10/28/2023 Procedure Type: Transthoracic Echocardiogram Location: OP Height: 154.94 cm Weight: 76.66 kg BSA: 1.76 m2 Heart Rate: 76 bpm BP: 156 / 94 mmHg Shopping Centre Manager: SB Referring MD: Yang Allen MD Symptoms: I42.9 - Cardiomyopathy, unspecified Study Quality: Adequate ECG Rhythm: Sinus Conclusions: - The calculated ejection fraction is 50% by biplane method. There is mild global hypokinesis. - The basal inferior and basal inferoseptal segments are hypokinetic. - No obvious valvular pathology seen on this study. - There is mild dilatation of the ascending aorta measuring 4.20 cm. Findings Left Ventricle Mildly increased left ventricular cavity size. There is normal left ventricular wall thickness. The left ventricular systolic function is mildly decreased. The calculated ejection fraction is 50% by biplane method. There is mild global hypokinesis. Evidence suggests grade I (mild) diastolic dysfunction. Possible basal inferior hypokinesis. Wall Motion Rest Echo Findings The basal inferior and basal inferoseptal segments are hypokinetic. Right Ventricle Normal right ventricular cavity size and systolic function. Atria Both atria are normal in size. Aortic Valve There is a normal trileaflet aortic valve. There is no aortic valve stenosis. There is trace (trivial) aortic valve regurgitation. Mitral Valve The mitral valve appears normal. There is no mitral valve regurgitation. There is no mitral valve stenosis. Pulmonic Valve There is trace pulmonic valve regurgitation. Tricuspid Valve Normal tricuspid valve structure. There is no tricuspid valve regurgitation. Tricuspid regurgitation envelope is inadequate for calculation of right ventricular systolic pressure. Great Vessels There is mild dilatation of the ascending aorta measuring 4.20 cm. Venous The inferior vena cava is normal in size and collapses less than 50% with inspiration. Pericardium/Pleural There is a trivial pericardial effusion. Prior Study Comparison Changes noted compared to prior study dated: 07/26/2022. LV less dilated. LVEF lower. See comment on wall motion. Recommendations, Care & Conclusions No obvious valvular pathology seen on this study. Measurements 2D Linear Measurements IVSd: 0.83 0.6-0.9/0.6-1.0 cm LVIDd: 5.76 3.9-5.3/4.2-5.9 cm LVIDd Index: 3.27 2.4-3.2/2.2-3.1 cm/m2 LVIDs: 4.21 2.0-3.6 cm LVPWd: 0.95 0.7-1.1 cm LA Diam: 4.10 2.7-3.8/3.0-4.0 cm LAIDs Index: 2.33 1.5-2.3 cm/m2 LV Mass: 247.77 67-162/88-224 g LV Mass Index: 140.78 43-95/49-115 g/m2 LVOT Diam: 2.30 3.0+(-)1.3 cm 2D Systolic Function EF 4C: 47.00 >55% EF 2C: 52.50 >55% EF BiP: 50.10 >55% Mitral Valve MV Pk E: 0.36 MV PK A: 0.79 MV Decel Time: 141.00 E/A: 0.50 E'Lateral: 2.61 E'Medial: 3.15 E/E' Med: 11.60 E/E' Lat: 13.90 PHT: 41.00 MVA PHT: 5.37 Decel [place]: 2.59 Aortic Valve AoV Pk Que: 1.15 AoV Pk Grad: 5.00 NANI: 3.31 AI Pk Que: 5.10 AI VTI: 2.26 AI [place]: 1.84 LVOT LVOT Pk Que: 0.85 LVOT Mn Que: 0.58 LVOT VTI: 0.16 LVOT Pk Grad: 3.00 LVOT Mn Grad: 2.00 LVOT Diam: 2.30 LVOT Area: 4.15 Diastolic Function MV Pk E: 0.36 MV Pk A: 0.79 E/A: 0.50 E'Medial: 3.15 E/E' Med: 11.60 E' Laterial: 2.61 E/E' Lat: 13.90 Right Ventricle TAPSE (mm): 18.00 TVS' Que: 11.10 Tricuspid Valve RA Press: 8.00 Great Vessels Aorta Sinus of Valsalva: 4.10 2.0-3.5 cm Ao Asc: 4.20 2.1-3.4 cm Pulmonary Veins Pulm Vein S/D 2.30 Pulmonary Valve PV Pk Que: 0.91 Peak PV Grad: 3.00 KS Pk Que: 1.93 Updated in Other Vendor System with Status of Final Yang Allen MD electronically signed on 10/31/2023 9:59:40 AM with status of Final
== END ==
LOC: HO.CARD 09:42
PROVIDERS: PCP Internal Medicine; Visit Provider Internal Medicine
DX: I42.9 Cardiomyopathy, unspecified (principal); Z87.74 Personal history of (corrected) congenital malformations of heart and circulatory system
CPT/HCPCS: 93306

== ENCOUNTER → 2023-10-28 09:45 | Outpatient (BNV) | payer OTHER, SELFPAY | PROVIDERS: PCP Internal Medicine; Visit Provider Internal Medicine | DX: I42.9 Cardiomyopathy, unspecified (principal) | CPT/HCPCS: 93306 ==

== ENCOUNTER 2023-11-05 09:57 | Outpatient (AMB) | payer OTHER, SELFPAY ==
[2023-11-05 10:16] VITALS: BP 160/80; PULSE 68; BMI 32.1
--- NOTE | 2023-11-05 10:16 | A.OFFVIS_ITS ---
Vital Signs 11/05/23 10:16 Height 5 ft 1 in Weight 169 lb 12.095 oz BMI 32.1 BP 160/80 H Blood Pressure Location Lt brachial Position Sitting Pulse 68 Pulse Source Pulse Oximeter Intake Visit Reasons: s/p echo/ pre op lap choly Pattern Technician Required: Yes Pattern Technician Name: [id number] Allergies No Known Allergies Allergy (Verified 09/22/23 14:23) Medication List - Last Reconciled 11/05/23 by Yang Allen MD atorvastatin 10 mg PO BEDTIME blood pressure monitor (Blood Pressure Kit) As directed hydroxyzine HCl 25 mg PO BID PRN lisinopril 40 mg PO DAILY meloxicam 7.5 mg PO DAILY polyethylene glycol 3350 (Miralax) 238 grams PO ONCE [rollator walker As directed] sertraline 50 mg PO DAILY HPI Comments Details: Francie returns for follow-up. In 2022, she was seen in consultation regarding patent ductus arteriosus. She was having exertional shortness of breath and that led to congenital heart disease consultation with Dr. Glass. Subsequently, referred to Dr. Pérez who performed PDA occlusion with the Amplatzer duct occluder. She states that she is having some tiredness and not clear if she is actually describing shortness of breath or not. She was found to have elevated filling pressures during the procedure advised low-dose Lasix but she is not taking that. Otherwise, blood pressure seems high. [facility] Medical History Annual physical exam Encounter for annual routine gynecological examination Preoperative cardiovascular examination Heart murmur Cervical cancer screening Colon cancer screening Breast cancer screening by mammogram Hypercholesterolemia Hypertension Generalized anxiety disorder Bimalleolar fracture of right ankle Patent ductus arteriosus Pulmonary artery hypertension Tobacco abuse Surgical History Status post catheter-placed plug or coil occlusion of PDA History of ankle surgery History of tubal ligation Family History Father Prostate cancer Mother Diabetes Dementia Sister No problems noted. Sister No problems noted. Sister Dementia Brother No problems noted. Brother Prostate cancer Son No problems noted. Son No problems noted. Daughter No problems noted. 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 Cognitive needs: No Hearing needs: No Vision needs: Yes Review of Systems Const Denies weakness ENT Denies dizziness Card Denies chest pain, Denies chest pain with activity, Denies syncope, Denies rapid heart rate, Denies pedal edema, Denies edema, Denies leg edema, Denies lightheadedness, Denies palpitations, Denies dyspnea, Denies dyspnea on exertion and Denies orthopnea Resp Denies cough, Denies dyspnea and Denies dyspnea on exertion GI Denies hematochezia and Denies change in stool character Musc Denies abnormal gait, Denies muscle cramps, Denies muscle weakness, Denies numbness, Denies radiating pain into limb and Denies tingling Neuro Denies abnormal gait, Denies dizziness, Denies syncope, Denies numbness, Denies tingling and Denies weakness Endo Denies palpitations Physical Exam Vital Signs: Last Vital Signs Pulse 68 11/05/23 10:16 BP 160/80 H 11/05/23 10:16 BMI result Body Mass Index 32.1 Const General: comfortable and no acute distress Orientation/consciousness: patient oriented x3 HEENT Other: Unremarkable Head: Yes normal to inspection Neck Neck: Yes normal visual inspection Chest Chest palpation & inspection: normal inspection of the chest Resp Auscultation: clear to auscultation bilaterally Cardio Palpation: normal PMI Heart sounds: S1 normal heart sound present, S2 normal heart sound present, no gallops, no murmurs and no rubs GI Palpation (GI): Soft to palpation Back/Spine/Pelvis Other: unremarkable Skin General skin exam: no rashes or lesions noted Neuro General: patient oriented x3 Extrem General: Yes normal to inspection Psych Mental Status: mental status grossly normal Assessment & Plan Assessment & Plan (1) Status post catheter-placed plug or coil occlusion of PDA: Comment: 07/2023 Code(s): Z87.74 - Personal history of (corrected) congenital malformations of heart and circulatory system Category: Surgical Plan: Status post PDA occlusion with Amplatzer duct occluder 07/2023. Hemodynamics with elevated left heart filling pressures and pulmonary hypertension, thought to be predominantly pulmonary venous hypertension. She was put on diuretics but stopped it. Advised to resume. Antibiotic prophylaxis for about 6 months from time of procedure. (2) Cardiomyopathy: Code(s): I42.9 - Cardiomyopathy, unspecified Category: Medical Plan: Echocardiogram done at [facility] postprocedure shows LVEF of 40-45%. There was no evidence of residual PDA. Most recently, LVEF 50%. There is basal inferior/inferoseptal hypokinesis. Cardiomyopathy could be because of longstanding uncorrected PDA. Hypertension may play a role. Hopefully, expect LVEF to improve. Coronary disease possible but no clear angina. Get coronary CTA. (3) Hypertension: Code(s): I10 - Essential (primary) hypertension Category: Medical Plan: Add amlodipine 10 mg daily. After this, possibly add Coreg. (4) Ascending aorta enlargement: Code(s): I77.89 - Other specified disorders of arteries and arterioles Category: Medical Plan: Ascending aortic size 4.2 cm. Will be followed periodically. (5) Preoperative cardiovascular examination: Code(s): Z01.810 - Encounter for preprocedural cardiovascular examination Category: Medical Plan: Needs to go for gallbladder surgery. Will get coronary CTA as above. Orders: Orders CT Cardiac Coronary Angio Today I25.10 - Atherosclerotic heart disease of [place] coronary artery without angina pectoris Medications: New amlodipine 10 mg PO DAILY 90 tabs 3RF furosemide (Lasix) 20 mg PO DAILY 90 tabs 1RF Coding Level of Care Code Est Pt Level 4 (36426) Diagnoses Status post catheter-placed plug or coil occlusion of PDA Z87.74 Cardiomyopathy I42.9 Hypertension I10 Ascending aorta enlargement I77.89 Preoperative cardiovascular examination Z01.810
== END 2023-11-05 10:54 | disposition home or self-care (01) ==
PROVIDERS: PCP Internal Medicine; Visit Provider Internal Medicine Cardiovascular Disease
DX: Z87.74 Personal history of (corrected) congenital malformations of heart and circulatory system (principal); I42.9 Cardiomyopathy, unspecified; I10 Essential (primary) hypertension; I77.89 Other specified disorders of arteries and arterioles; Z01.810 Encounter for preprocedural cardiovascular examination
CPT/HCPCS: 99214

== ENCOUNTER → 2023-11-05 09:57 | Outpatient (BNVA) | payer OTHER, SELFPAY | PROVIDERS: PCP Internal Medicine; Visit Provider Internal Medicine Cardiovascular Disease | DX: Z01.810 Encounter for preprocedural cardiovascular examination (principal); I42.9 Cardiomyopathy, unspecified; I10 Essential (primary) hypertension; I77.89 Other specified disorders of arteries and arterioles; Z87.74 Personal history of (corrected) congenital malformations of heart and circulatory system | CPT/HCPCS: 99212 ==

== ENCOUNTER 2024-01-29 12:31 | Outpatient (AMB) | payer OTHER, SELFPAY ==
[2024-01-29 12:35] VITALS: BP 160/98; PULSE 86; O2SAT 98; BMI 32.1
--- NOTE | 2024-01-29 12:35 | A.OFFPC_ITS ---
Vital Signs 01/29/24 12:35 Height 5 ft 0.5 in Weight 167 lb BMI 32.1 BP 160/98 H Blood Pressure Location Lt brachial Position Sitting Pulse 86 Pulse Source Pulse Oximeter Pulse Oximetry (%) 98 Oxygen Delivery Method Room Air Intake Visit Reasons: CArdiomyopathy, , cholesterol Brine Tank Operator Required: No Allergies No Known Allergies Allergy (Verified 01/29/24 12:35) Tobacco use date assessed: 09/09/23 Dental Screening Dental Screen Date: 04/28/23 HPI CArdiomyopathy, , cholesterol HPI Details 63-year-old obese female with a history of cardiomyopathy status post catheter placed plug or coil occlusion of PDA, hypertension hypercholesterolemia and generalized anxiety disorder. Patient has cholelithiasis and surgery was held due to living in the [place] [facility]. Patient was last seen in September 2023. Mammogram is up-to-date. Review of the notes received a letter from Cardiology as patient requires antibiotics prior to procedures. For the next 6 months. Patient has also seen local cardiology advised to resume diuretics and antibiotic prophylaxis for the next 6 months. Patient has cardiomyopathy most likely due to uncorrected PDA longstanding. Advised coronary CTA. For the blood pressure on amlodipine 10 mg once a day ascending aorta size is 4.2 cm will be followed periodically. Received in the chart cardiac catheterization done in July for PDA occlusion. Echocardiogram October 30 The calculated ejection fraction is 50% by biplane method. There is mild global hypokinesis. - The basal inferior and basal inferosep mary segments are hypokinetic. - No obvious valvular pathology seen on this study. - There is mild dilatation of the ascend ing aorta measuring 4.20 cm. PAtient'smom declined any surgery for now. [facility] Medical History Annual physical exam Encounter for annual routine gynecological examination Preoperative cardiovascular examination Heart murmur Cervical cancer screening Colon cancer screening Breast cancer screening by mammogram Hypercholesterolemia Hypertension Generalized anxiety disorder Bimalleolar fracture of right ankle Patent ductus arteriosus Pulmonary artery hypertension Tobacco abuse Surgical History Status post catheter-placed plug or coil occlusion of PDA History of ankle surgery History of tubal ligation Family History Father Prostate cancer Mother Diabetes Dementia Sister No problems noted. Sister No problems noted. Sister Dementia Brother No problems noted. Brother Prostate cancer Son No problems noted. Son No problems noted. Daughter No problems noted. Social History (Updated 11/27/23 @ 11:07 by Madeleine Bay RN) Housing: Other Housing Other:: lives in [place], will stay with sister post-op Are you a primary morning caregiver to a significant other at home: No Do you presently have visiting nurse or other home services: No Alcohol intake: current Alcohol intake frequency: holidays/special occasions only Comment: ONCE A MONTH 2 CANS Patient Tobacco Use Status: Former Tobacco user Tobacco use type: Cigarette Cigarettes Per Day: 2 Years Smoked: stopped 03/2023 Packs per year/per ci.00 e-Cigarette/Vaping Use: Never Used Second Hand Smoke Exposure: Yes Advance Directives Date on File: 02/19/22 service: No Current occupational status: employed 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 How often do you have a drink containing alcohol?: Never 2. How many drinks containing alcohol do you have on a typical day when you are drinking?: 1 or 2 3. How often do you have six or more drinks on one occasion?: Never Total Score: 0 Score Reviewed/Action Taken: No KATHRINE-7 AMB Questionnaire KATHRINE-7 Date KATHRINE - 7 assessed: 04/28/23 Source: Developed by Drs. Jaquan Castaneda, Renetta Patiño, Ugo Patel and colleagues, with an educational dwayne from [employer]. Physical exam (Primary Care) Vital Signs: Last Vital Signs Pulse 86 01/29/24 12:35 BP 160/98 H 01/29/24 12:35 Pulse Ox 98 01/29/24 12:35 Oxygen Delivery Method Room Air 01/29/24 12:35 BMI result Body Mass Index 32.1 Tobacco/Smoking Status: Tobacco use Status Tobacco use date assessed 09/09/23 01/29/24 12:35 Patient Tobacco Use Status Former Tobacco user 01/29/24 12:35 Tobacco use type Cigarette 01/29/24 12:35 e-Cigarette/Vaping Use Never Used 01/29/24 12:35 Thrive Assessment: Date of Thrive Assessment Date Thrive assessed 04/28/23 01/29/24 12:35 Const General: alert; No acute distress Eyes Conjunctivae: conjunctivae normal Resp Auscultation: clear to auscultation bilaterally Cardio Rate: regular rate Rhythm: regular rhythm GI Inspection: Yes normal to inspection Extrem General: Yes normal to inspection and No edema Coding Level of Care Code Est Pt Level 4 (71166) Diagnoses Ascending aorta enlargement I77.89 Cardiomyopathy I42.9 Cholelithiases K80.20 Patent ductus arteriosus Q25.0 Hypertension I10 Hypercholesterolemia E78.00 Generalized anxiety disorder F41.1 Assessment & Plan Assessment & Plan (1) Ascending aorta enlargement: Comment: October 2023 4.2 Code(s): I77.89 - Other specified disorders of arteries and arterioles Category: Medical Plan: Echocardiogram 10/2023 will continue to monitor (2) Cardiomyopathy: Code(s): I42.9 - Cardiomyopathy, unspecified Category: Medical Plan: Patient has been follow-up with cardiology continue to monitor. (3) Cholelithiases: Comment: May 2023 Code(s): K80.20 - Calculus of gallbladder without cholecystitis without obstruction Category: Surgical Plan: Patient has been cleared to do procedure. (4) Patent ductus arteriosus: Comment: murmur July 2022 last echocardiogramMain pulmonary artery dilated; root -4cm; mid 3.4cm; more distally 4cm. - PDA with continuous flow noted; peak gradient 143mmHg. Closure of the PDA done July 2023 Code(s): Q25.0 - Patent ductus arteriosus Category: Medical Plan: Status post closure. July 2023 endocarditis prophylaxis for 6 months (5) Hypertension: Code(s): I10 - Essential (primary) hypertension Category: Medical Plan: Continue with blood pressure medication. Decrease salt intake and exercise on amlodipine 10 mg once a day lisinopril 40 mg once a day (6) Hypercholesterolemia: Code(s): E78.00 - Pure hypercholesterolemia, unspecified Category: Medical Plan: Avoid fried foods, chicken skin, eggs, butter margarine, pastries and meat. Be it pork or beef they have a lot of cholesterol LDL goal of less than 100 and triglyceride of less than 150 patient was advised to have CT coronaries (7) Generalized anxiety disorder: Comment: [facility] counselling Code(s): F41.1 - Generalized anxiety disorder Category: Medical Plan: Continue with counseling and therapy Medications: New carvedilol must administer with a meal/food 3.125 mg PO BID 60 tabs 2RF I10 - Essential (primary) hypertension Refilled amlodipine 10 mg PO DAILY 90 tabs 3RF I10 - Essential (primary) hypertension lisinopril 40 mg PO DAILY 90 tabs 3RF I10 - Essential (primary) hypertension
== END 2024-01-29 13:22 | disposition home or self-care (01) ==
PROVIDERS: PCP Internal Medicine; Visit Provider Internal Medicine
DX: I77.89 Other specified disorders of arteries and arterioles (principal); I42.9 Cardiomyopathy, unspecified; K80.20 Calculus of gallbladder without cholecystitis without obstruction; Q25.0 Patent ductus arteriosus; I10 Essential (primary) hypertension; E78.00 Pure hypercholesterolemia, unspecified; F41.1 Generalized anxiety disorder

== ENCOUNTER → 2024-01-29 12:31 | Outpatient (BNVA) | payer OTHER, SELFPAY | PROVIDERS: PCP Internal Medicine; Visit Provider Internal Medicine | DX: I77.89 Other specified disorders of arteries and arterioles (principal); I42.9 Cardiomyopathy, unspecified; K80.20 Calculus of gallbladder without cholecystitis without obstruction; Q25.0 Patent ductus arteriosus; I10 Essential (primary) hypertension; E78.00 Pure hypercholesterolemia, unspecified; F41.1 Generalized anxiety disorder | CPT/HCPCS: 99212 ==

== ENCOUNTER 2024-02-27 13:14 | Outpatient (AMB) | payer OTHER, SELFPAY ==
[2024-02-27 13:32] VITALS: BP 132/68; BMI 32.7
--- NOTE | 2024-02-27 13:32 | MHC.OFFVIS ---
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 She is doing well with concerns: urine odor, no pelvic pain or discharge, no dysuria. Currently sexually active. Denies any vaginal dryness or irritation. Diet is fair, living in a fpc. Last pap smear; 08/25/2023-Trichomonas present. She reports taking all of her meds for treatment. Test of cure was not completed. Last mammogram; 2023. Colonoscopy is UTD. Denies any family history of breast, ovarian or colon cancer. [facility], [facility] Medical History (Updated 02/27/24 @ 13:54 by Allison Reilly CNM) [facility] Annual physical exam Encounter for annual routine gynecological examination Preoperative cardiovascular examination Heart murmur Cervical cancer screening Colon cancer screening Breast cancer screening by mammogram Hypercholesterolemia Hypertension Generalized anxiety disorder Bimalleolar fracture of right ankle Patent ductus arteriosus Pulmonary artery hypertension Tobacco abuse Surgical History Status post catheter-placed plug or coil occlusion of PDA History of ankle surgery History of tubal ligation Family History Father Prostate cancer Mother Diabetes Dementia Sister No problems noted. Sister No problems noted. Sister Dementia Brother No problems noted. Brother Prostate cancer Son No problems noted. Son No problems noted. Daughter No problems noted. Social History (Updated 02/27/24 @ 13:55 by Allison Reilly CNM) Household Members Other:: Lives in a fpc 02/2024 Housing: Other Housing Other:: lives in a fpc, will stay with sister post-op Are you a primary hospice patient care secretary to a significant other at home: No Do you presently have visiting nurse or other home services: No Alcohol intake: current Alcohol intake frequency: holidays/special occasions only Comment: ONCE A MONTH 2 CANS Patient Tobacco Use Status: Former Tobacco user Tobacco use type: Cigarette Cigarettes Per Day: 2 Years Smoked: stopped 03/2023 e-Cigarette/Vaping Use: Never Used Second Hand Smoke Exposure: Yes Advance Directives Date on File: 02/19/22 service: No Current occupational status: unemployed Cognitive needs: No Hearing needs: No Vision needs: Yes Female Reproductive History Menstrual control method: permanent sterilization Permanent Sterilization: BTL Total pregnancies: 3 Full term: 3 Number of Living Children: 3 Date of last pap smear: 09/08/23 History of abnormal pap smear: Yes Date of Mammogram: 05/29/23 History of abnormal mammogram: No Review of Systems Const All systems reviewed & are unremarkable except as noted in HPI and below Reports as per HPI Eyes Reports no additional complaints ENT Reports no additional complaints Card Reports no additional complaints Resp Reports no additional complaints GI Reports as per HPI and Reports no additional complaints Reports as per HPI Musc Reports no additional complaints Skin/Breast Reports as per HPI Neuro Reports no additional complaints Psych Reports no additional complaints Endo Reports no additional complaints [place]/Lymph Reports no additional complaints Aller/Immun Reports no additional complaints Physical Exam Vital Signs: Last Vital Signs BP 132/68 02/27/24 13:32 BMI result Body Mass Index 32.7 Const General: cooperative, healthy appearing, no acute distress, well developed and alert Orientation/consciousness: patient oriented x3 HEENT Head: Yes normal to inspection Eyes General: appearance normal, both eyes and all related structures Neck Neck: Yes normal visual inspection Thyroid: Thyroid normal Chest Chest palpation & inspection: normal inspection of the chest and other (no puckering, dimpling, peau de orange, retraction, discharge, masses) Breast/axilla inspection: normal inspection of the breasts Breast/axilla palpation: normal palpation of the breasts Resp Effort & Inspection: normal respiratory effort GI Inspection: Yes normal to inspection Palpation (GI): Soft to palpation Rectal Exam - Female: deferred General: Yes bladder normal to palpation External Female Exam: normal external appearance and normal appearance of the urethra Speculum Exam - Vagina: normal appearance of the vagina, normal palpation, normal vaginal discharge, vagina atrophic and other (Bilateral post posterior vaginal wall c/w inclusion cyst) Speculum Exam - Cervix: normal appearance of the cervix and normal palpation Bimanual exam- vagina & uterus: normal bimanual exam, normal palpation, uterine size normal, bladder normal to palpation, normal palpation and non-tender Bimanual Exam- Adnexa, other: no masses Skin General skin exam: no rashes or lesions noted Rashes: no rashes Neuro General: patient oriented x3 Cognition (Neuro): normal cognition Extrem General: Yes normal to inspection Psych Attitude: cooperative Thought process: Normal thought process present Results AMB Urinalysis, Automated UA Leukoctes 70 Winifred/uL Last Edit by Charmaine Dick CMA on 02/27/24 14:23 UA Nitrite Negative Last Edit by Charmaine Dick CMA on 02/27/24 14:23 UA Urobilinogen 3.5 mg/dL Last Edit by Charmaine Dick CMA on 02/27/24 14:23 UA Protein 0.3 mg/dL Last Edit by Charmaine Dick CMA on 02/27/24 14:23 UA pH 6.0 Last Edit by Charmaine Dick CMA on 02/27/24 14:23 UA Blood 10 Jeff/uL Last Edit by Charmaine Dick CMA on 02/27/24 14:23 UA Specific Surrency 1.020 Last Edit by Charmaine Dick CMA on 02/27/24 14:23 UA Ketone Positive Last Edit by Charmaine Dick CMA on 02/27/24 14:23 UA Bilirubin 17 mg/dL Last Edit by Charmaine Dick CMA on 02/27/24 14:23 UA Glucose 0 mg/dL Last Edit by Charmaine Dick CMA on 02/27/24 14:23 Results Reviewed Results Reviewed: Laboratory Last Values Urine pH (Auto) 6.0 02/27/24 14:20 Specific Surrency (Auto) 1.020 02/27/24 14:20 Urine Protein (Auto) 0.3 mg/dL 02/27/24 14:20 Glucose (UA)(Auto) 0 mg/dL 02/27/24 14:20 Urine Ketones (Auto) Positive 02/27/24 14:20 Urine Blood (Auto) 10 Jeff/uL 02/27/24 14:20 Urine Nitrite (Auto) Negative 02/27/24 14:20 Urine Bilirubin (Auto) 17 mg/dL 02/27/24 14:20 Urine Urobilinogen (Auto) 3.5 mg/dL 02/27/24 14:20 Leukocyte Esterase (Auto) 70 Winifred/uL 02/27/24 14:20 Assessment & Plan Assessment & Plan (1) Encounter for well woman exam with routine gynecological exam: Code(s): Z01.419 - Encounter for gynecological examination (general) (routine) without abnormal findings Category: Medical Plan Discussed: Current recommendations for pap smears per ASCCP guidelines. BV GC and chlamydia completed await test results for plan of care. Breast awareness, periodic self breast exams and yearly mammogram. Maintain a healthy lifestyle, well balanced diet including Calcium 1,200 mg and Vitamin D 600 IU daily, and routine exercise. Use of condoms for STI prevention if indicated. Vaginal findings make be consistent with any vaginal surgeries or repairs in the past, now also be remnants from assist on the vaginal wall, report any vaginal pressure or discomfort. Contact the office with any postmenopausal bleeding. Patient verbalizes understanding and agrees to the plan of care. She was given opportunity to ask questions and all questions were answered to the best of my ability. RTO in 1 year for annual lead recoverer exam. This note is constructed using voice recognition software. While every effort has been made to ensure accuracy, lug breaker and wire puller errors may have been included. Orders: Orders CT NG by PCR Today Z01.419 - Encounter for gynecological examination (general) (routine) without abnormal findings Bacterial Vaginosis Panel Today Z01.419 - Encounter for gynecological examination (general) (routine) without abnormal findings Urine Culture Today N89.8 - Other specified noninflammatory disorders of vagina AMB Urinalysis Automated Today N89.8 - Other specified noninflammatory disorders of vagina Coding Level of Care Code Est Pt Prev Care 40-64y(34625) Diagnoses Encounter for well woman exam with routine gynecological exam Z01.419
== END 2024-02-27 14:09 | disposition home or self-care (01) ==
LOC: HO.HWS 13:14
PROVIDERS: PCP Internal Medicine; Visit Provider Advanced Practice Midwife
DX: Z01.419 Encounter for gynecological examination (general) (routine) without abnormal findings (principal); N89.8 Other specified noninflammatory disorders of vagina
CPT/HCPCS: 99396

== ENCOUNTER 2024-02-27 13:14 | Outpatient (REF) | payer OTHER, SELFPAY | END 2024-02-27 13:15 | disposition home or self-care (01) | LOC: HO.LNP 13:14 | PROVIDERS: PCP Internal Medicine; Visit Provider Advanced Practice Midwife | DX: Z01.419 Encounter for gynecological examination (general) (routine) without abnormal findings (principal); N89.8 Other specified noninflammatory disorders of vagina | CPT/HCPCS: 81003; 99396 ==

== ENCOUNTER 2024-02-27 14:20 | Outpatient (REF) | payer OTHER, SELFPAY ==
[2024-02-28 05:54] LABS: CT PCR NOT DETECTED (Not Detect.); NG PCR NOT DETECTED (Not Detect.)
[2024-02-28 12:04] LABS: Bacterial Vaginosis PCR POSITIVE (Negative); Candida Group PCR NOT DETECTED (Not Detect); Candida glab krusei PCR NOT DETECTED (Not Detect); Trichomonas vaginalis PCR DETECTED (Not Detect)
== END 2024-02-27 14:21 | disposition home or self-care (01) ==
LOC: HO.LAB 14:20
PROVIDERS: Visit Provider Advanced Practice Midwife
DX: Z01.419 Encounter for gynecological examination (general) (routine) without abnormal findings (principal); N89.8 Other specified noninflammatory disorders of vagina
CPT/HCPCS: 0352U; 87086; 87491; 87591

== ENCOUNTER 2024-04-28 10:34 | Outpatient (AMB) | payer OTHER, SELFPAY ==
[2024-04-28 10:55] VITALS: BP 142/78; PULSE 82; O2SAT 98; BMI 33.6
--- NOTE | 2024-04-28 10:55 | MHC.PC.OV ---
Vital Signs 04/28/24 10:55 Height 5 ft 0.5 in Weight 175 lb BMI 33.6 BP 142/78 H Blood Pressure Location Lt brachial Position Sitting Pulse 82 Pulse Source Pulse Oximeter Pulse Oximetry (%) 98 Oxygen Delivery Method Room Air Intake Visit Reasons: Annual Exam - see comments Allergies No Known Allergies Allergy (Verified 04/28/24 10:56) Medication List - Last Reconciled 04/28/24 by Marky Thrasher MD amlodipine 10 mg PO DAILY atorvastatin 10 mg PO BEDTIME blood pressure monitor (Blood Pressure Kit) As directed brimonidine 0.2% 1 drp ophthalmic (eye) BID carvedilol 3.125 mg PO BID hydroxyzine HCl 25 mg PO BID PRN meloxicam 7.5 mg PO DAILY [rollator walker As directed] sertraline 25 mg PO DAILY zolpidem 5 mg PO BEDTIME PRN Tobacco use date assessed: 04/28/24 Dental Screening Dental Screen Date: 04/28/23 HPI Annual Exam - see comments HPI Details The patient is a 64-year-old female presenting with hypertension, hyperlipidemia, and depression. She reports that her blood pressure remains slightly elevated at home despite current medication. She takes Amlodipine 10 mg once daily and Carvedilol 3.125 mg twice daily. She has been on Atorvastatin for cholesterol management, but recent blood work indicated elevated cholesterol levels. Additionally, she reports weight gain of approximately five pounds recently, and her current weight is around 175 lbs. For insomnia, the patient takes Zolpidem. Regarding her depressive symptoms, she recently started taking Sertraline 25 mg daily this month, prescribed by her psychiatrist. She experiences urinary incontinence at night, waking up to void 2 to 3 times. No new surgeries or diagnoses have been made since her last visit. A family history of prostate cancer is noted in her father. She denies any history of smoking or regular alcohol use, consuming alcohol only occasionally at social gatherings. - Discussed the importance of blood pressure management and weight reduction. - Emphasized adherence to cholesterol medication and follow-up lipid panel. - Advised on potential COVID-19 and influenza vaccination, both of which the patient declined. - Currently lives in a home environment; no stairs at home. - Reports alcohol consumption only socially, approximately every three months. - No tobacco use reported. - Recent weight gain noted; dietary intake was discussed with mention of non-regular physical activity. - The patient denied any occupational factors contributing to stress. - General: Denies fever, chills, or weight loss. - Cardiovascular: Reports elevated blood pressure. - Respiratory: Denies any respiratory symptoms. - Neurological: Denies headache or dizziness. - Gastrointestinal: Denies nausea or vomiting. - Genitourinary: Reports urinary incontinence at night. - Musculoskeletal: Denies musculoskeletal pain. - Psychiatric: Reports depressive symptoms; started on Sertraline. - Labs: Elevated cholesterol levels noted; specific levels to be followed up. - Tests: No recent diagnostic imaging noted in discussion. [facility] Medical History (Updated 04/28/24 @ 12:31 by Marky Thrasher MD) Homeless Annual physical exam Encounter for annual routine gynecological examination Preoperative cardiovascular examination Heart murmur Cervical cancer screening Colon cancer screening Breast cancer screening by mammogram Hypercholesterolemia Hypertension Generalized anxiety disorder Bimalleolar fracture of right ankle Patent ductus arteriosus Pulmonary artery hypertension Tobacco abuse Surgical History Status post catheter-placed plug or coil occlusion of PDA History of ankle surgery History of tubal ligation Family History Father Prostate cancer Mother Diabetes Dementia Sister No problems noted. Sister No problems noted. Sister Dementia Brother No problems noted. Brother Prostate cancer Son No problems noted. Son No problems noted. Daughter No problems noted. Social History (Updated 04/28/24 @ 12:21 by Marky Thrasher MD) Household Members Other:: Lives in a fdc 02/2024 Housing: Other Housing Other:: lives in a fdc, will stay with sister post-op Are you a primary veterinarian laboratory animal care to a significant other at home: No Do you presently have visiting nurse or other home services: No Alcohol intake: current Alcohol intake frequency: holidays/special occasions only Comment: 1-2 Q 3 months Patient Tobacco Use Status: Former Tobacco user Tobacco use type: Cigarette Cigarettes Per Day: 2 Years Smoked: stopped 03/2023 e-Cigarette/Vaping Use: Never Used Second Hand Smoke Exposure: Yes Advance Directives Date on File: 02/19/22 service: No Current occupational status: unemployed Cognitive needs: No Hearing needs: No Vision needs: Yes Questionnaire PHQ-9 Over the last 2 weeks, how often have you been bothered by any of the following problems? 1. Little interest or pleasure in doing things: not at all 2. Feeling down, depressed, or hopeless: several days 3. Trouble falling or staying asleep, or sleeping too much: not at all 4. Feeling tired or having little energy: not at all 5. Poor appetite or overeating: not at all 6. Feeling bad about yourself - or that you are a failure or have let yourself or your family down: not at all 7. Trouble concentrating on things, such as reading the newspaper or watching television: not at all 8. Moving or speaking so slowly that other people could have noticed. Or the opposite - being so fidgety or restless that you have been moving around a lot more than usual: not at all 9. Thoughts that you would be better off or of hurting yourself in some way: not at all Total score: 1 Depression Screening Interpretation: Positive Depression Screening Follow-up: Existing condition and In treatment Depression Screening Done: Yes Source: Developed by Drs. Jaquan Castaneda, Renetta Patiño, Ugo Patel and colleagues, with an educational dwayne from [employer]. Thrive Questionnaire Date Thrive assessed: 04/28/24 I am a: Patient What is your living situation today?: I have a steady place to live Within the past 12 months, did the food you bought not last and you didn't have the money to get more?: Never true Within the past 12 months, did you worry whether your food would run out before you got money to buy more?: Never true Do you have trouble paying for medicines?: No Do you have trouble getting transportation to medical appointments?: No Do you have trouble paying your heating and electricity bill?: No Do you have trouble taking care of your child, family member or friend?: No Do you have trouble with day-to-day activities such as bathing, preparing meals, shopping, managing finances, etc.?: No Are you currently unemployed and looking for a job?: No Are you interested in more education?: No Currently or been in a relationship where the following occur: No concerns reported THRIVE Score: 0 AUDIT C Alcohol Use Questionnaire (AUDIT-C) 1. How often do you have a drink containing alcohol?: Never 2. How many drinks containing alcohol do you have on a typical day when you are drinking?: 1 or 2 3. How often do you have six or more drinks on one occasion?: Never Total Score: 0 Score Reviewed/Action Taken: No KATHRINE-7 AMB Questionnaire KATHRINE-7 Date KATHRINE - 7 assessed: 04/28/24 Feeling nervous, anxious, or on edge: 0 = Not at all Not being able to stop or control worryin = Not at all Worrying too much about different things: 0 = Not at all Trouble relaxin = Not at all Being so restless that it is hard to sit still: 0 = Not at all Becoming easily annoyed or irritable: 0 = Not at all Feeling afraid as if something awful might happen: 0 = Not at all Total KATHRINE-7 score (0-4 normal; 5-9 mild; 10-14 moderate; 15-21 severe): 0 Source: Developed by Drs. Jaquan Castaneda, Renetta Patiño, Ugo Patel and colleagues, with an educational dwayne from [employer]. Review of Systems Const Denies poor appetite and Denies weakness Eyes Denies no additional complaints ENT Reports Normal hearing present, Denies dizziness, Denies nasal congestion, Denies tinnitus and Denies sore throat Card Denies chest pain, Denies syncope, Denies rapid heart rate and Denies dyspnea Resp Denies cough and Denies dyspnea GI Denies change in stool character, Reports constipation, Denies diarrhea, Denies nausea and Denies vomiting Denies urinary frequency, Denies difficulty voiding and Denies dysuria Neuro Reports Normal hearing present, Denies confusion, Denies dizziness, Denies syncope and Denies weakness Psych Denies confusion Physical exam (Primary Care) Vital Signs: Last Vital Signs Pulse 82 04/28/24 10:55 BP 142/78 H 04/28/24 10:55 Pulse Ox 98 04/28/24 10:55 Oxygen Delivery Method Room Air 04/28/24 10:55 BMI result Body Mass Index 33.6 Tobacco/Smoking Status: Tobacco use Status Tobacco use date assessed 04/28/24 04/28/24 10:59 Patient Tobacco Use Status Former Tobacco user 04/28/24 12:21 Tobacco use type Cigarette 04/28/24 12:21 e-Cigarette/Vaping Use Never Used 04/28/24 12:21 PHQ-9: PHQ-9 Score PHQ-9: Total score 1 04/28/24 12:16 Depression Screening Interpretation: Positive Depression Screening Follow-up: Existing condition and In treatment Thrive Assessment: Date of Thrive Assessment Date Thrive assessed 04/28/24 04/28/24 10:59 Currently or been in a relationship where the following occur: No concerns reported Const General: No confusion Orientation/consciousness: No confusion HENMT Head: Yes normocephalic Ears: external ears normal and TM's normal bilaterally Face and sinus: Yes normal facial exam Mouth: moist mucous membranes Throat: Yes tonsils normal Eyes Conjunctivae: conjunctivae normal Pupils: Equal, round and reactive pupils present and Pupil accommodation reflex normal Direct Ophthalmoscopy: normal light reflex Neck Neck: No lymphadenopathy Thyroid: Thyroid normal Chest Chest palpation & inspection: normal inspection of the chest Resp Effort & Inspection: normal respiratory effort and no audible wheezes Auscultation: clear to auscultation bilaterally, no crackles, no wheezes and lung sounds not diminished Cardio Rate: regular rate Rhythm: regular rhythm Peripheral pulses: radial pulses present and dorsalis pedis present GI Other: guaiac negativ e stools Palpation (GI): no masses Auscultation: normal bowel sounds and normoactive bowel sounds Skin General skin exam: no rashes or lesions noted Rashes: no rashes Neuro General: No confusion Cranial nerves: Yes Equal, round and reactive pupils present and Yes Normal hearing present Cognition (Neuro): normal cognition Gait exam (Neuro): Normal gait present Motor exam (neuro): 5/5 motor strength present throughout Deep tendon reflexes (DTR's): Right brachioradialis reflex intensity grade: 2+, Left brachioradialis reflex intensity grade: 2+, Right patellar reflex intensity grade: 2+ and Left patellar reflex intensity grade: 2+ Extrem General: No edema Coding Level of Care Code Est Pt Prev Care 40-64y(30013) Diagnoses Annual physical exam Z00.00 Patent ductus arteriosus Q25.0 Hypertension I10 Hypercholesterolemia E78.00 Generalized anxiety disorder F41.1 Obesity (BMI 30-39.9) E66.9 Ascending aorta enlargement I77.89 Urge incontinence N39.41 Assessment & Plan Assessment & Plan (1) Annual physical exam: Code(s): Z00.00 - Encounter for general adult medical examination without abnormal findings Category: Medical (2) Patent ductus arteriosus: Comment: murmur July 2022 last echocardiogramMain pulmonary artery dilated; root -4cm; mid 3.4cm; more distally 4cm. - PDA with continuous flow noted; peak gradient 143mmHg. Closure of the PDA done July 2023 Code(s): Q25.0 - Patent ductus arteriosus Category: Medical (3) Hypertension: Code(s): I10 - Essential (primary) hypertension Category: Medical (4) Hypercholesterolemia: Code(s): E78.00 - Pure hypercholesterolemia, unspecified Category: Medical (5) Generalized anxiety disorder: Comment: [facility] counselling Code(s): F41.1 - Generalized anxiety disorder Category: Medical Plan: started on sertraline by psychiatry (6) Obesity (BMI 30-39.9): Code(s): E66.9 - Obesity, unspecified Category: Medical (7) Ascending aorta enlargement: Comment: October 2023 4.2 Code(s): I77.89 - Other specified disorders of arteries and arterioles Category: Medical (8) Urge incontinence: Code(s): N39.41 - Urge incontinence Category: Medical Plan - Adjust hypertension medication regimen due to elevated home readings. - Continue current dose of Atorvastatin and repeat lipid panel in three months. - Maintain current dose of Zolpidem for insomnia management. - Continue Sertraline 25 mg for depression and monitor for side effects. - Schedule follow-up appointment in three months to reassess blood pressure, cholesterol, and psychiatric symptoms. - Discuss dietary changes and increased physical activity for obesity and overall health. I discussed the current status and management plans for her hypertension, recommending medication adjustment considering elevated readings. I emphasized the importance of adhering to the prescribed Atorvastatin to manage her hyperlipidemia effectively. We talked about the recent introduction of Sertraline for depressive symptoms prescribed by her psychiatrist and agreed on close monitoring. I advised regular follow-ups and lipid panel checks to guide treatment effectiveness, along with lifestyle interventions to address obesity. Lastly, I highlighted the need for vigilance regarding respiratory infections, given her decision not to receive the vaccines for influenza and COVID-19. - Continue taking all prescribed medications as directed. - Monitor blood pressure regularly and record. - Maintain the current diet and physical activity plan to aid in weight management. - Schedule a follow-up visit in three months and obtain lab work prior to the visit. - Seek medical advice if experiencing any new symptoms or side effects from medications. - Wash hands frequently and be cautious about potential exposure to respiratory illnesses. Medications: New [PULL UPS MEDIUM] As directed 1 ea 12RF N39.41 - Urge incontinence Changed From carvedilol must administer with a meal/food 3.125 mg PO BID 60 tabs 2RF I10 - Essential (primary) hypertension To carvedilol must administer with a meal/food 6.25 mg PO BID 60 tabs 2RF I10 - Essential (primary) hypertension Refilled atorvastatin 10 mg PO BEDTIME 90 tabs 2RF E78.00 - Pure hypercholesterolemia, unspecified
== END 2024-04-28 12:37 | disposition home or self-care (01) ==
PROVIDERS: PCP Internal Medicine; Visit Provider Internal Medicine
DX: Z00.00 Encounter for general adult medical examination without abnormal findings (principal); Q25.0 Patent ductus arteriosus; I10 Essential (primary) hypertension; E78.00 Pure hypercholesterolemia, unspecified; F41.1 Generalized anxiety disorder; E66.9 Obesity, unspecified; I77.89 Other specified disorders of arteries and arterioles; N39.41 Urge incontinence

== ENCOUNTER → 2024-04-28 10:34 | Outpatient (BNVA) | payer OTHER, SELFPAY | PROVIDERS: PCP Internal Medicine; Visit Provider Internal Medicine | DX: Z00.00 Encounter for general adult medical examination without abnormal findings (principal); Q25.0 Patent ductus arteriosus; E78.00 Pure hypercholesterolemia, unspecified; E66.9 Obesity, unspecified; Z68.33 Body mass index [BMI] 33.0-33.9, adult; I10 Essential (primary) hypertension; I77.89 Other specified disorders of arteries and arterioles; N39.41 Urge incontinence; F41.1 Generalized anxiety disorder; Z71.3 Dietary counseling and surveillance | CPT/HCPCS: 99396 ==

== ENCOUNTER 2024-06-03 13:11 | Outpatient (REF) | payer OTHER, SELFPAY | END 2024-06-03 13:12 | disposition home or self-care (01) | LOC: HO.MAMMO 13:11 | PROVIDERS: PCP Internal Medicine; Visit Provider Internal Medicine | DX: Z12.31 Encounter for screening mammogram for malignant neoplasm of breast (principal) | CPT/HCPCS: 77063; 77067 ==

== ENCOUNTER → 2024-06-03 13:45 | Outpatient (BNV) | payer OTHER, SELFPAY | PROVIDERS: PCP Internal Medicine; Visit Provider Internal Medicine | DX: Z12.31 Encounter for screening mammogram for malignant neoplasm of breast (principal) | CPT/HCPCS: 77063; 77067 ==

== ENCOUNTER 2024-08-03 13:01 | Outpatient (AMB) | payer MEDICARE, MEDICAID, SELFPAY ==
--- NOTE | 2024-08-03 13:06 | MHC.PC.OV ---
Vital Signs 08/03/24 13:08 Height 5 ft 0.5 in Weight 172 lb 4 oz BMI 33.1 BP 160/90 H Blood Pressure Location Lt brachial Position Sitting Pulse 84 Pulse Source Pulse Oximeter Temp 97.7 F Temp Source Temporal Artery Scan Pulse Oximetry (%) 97 Oxygen Delivery Method Room Air Intake Visit Reasons: 3mth f/u Intake Note: Patient is here to follow up on Cardiomyopathy, Hypercholesterolemia, HTN. Director Of Employer Services Required: No High Voltage Electrician: Not Required per policy Accompanied by: Self / Same As Patient Allergies No Known Allergies Allergy (Verified 08/03/24 13:08) Tobacco use date assessed: 08/03/24 Dental Screening Dental Screen Date: 08/03/24 Did you have a dental visit in the last 12 months?: Yes Did you have a dental problem in the last 6 months where you did not have access to dental care?: No Was dental information given to patient?: Patient has dentist [facility] Medical History (Updated 08/03/24 @ 13:36 by Marky Thrasher MD) Colon cancer screening [facility] Annual physical exam Encounter for annual routine gynecological examination Preoperative cardiovascular examination Heart murmur Cervical cancer screening Breast cancer screening by mammogram Hypercholesterolemia Hypertension Generalized anxiety disorder Bimalleolar fracture of right ankle Patent ductus arteriosus Pulmonary artery hypertension Tobacco abuse Surgical History Status post catheter-placed plug or coil occlusion of PDA History of ankle surgery History of tubal ligation Family History Father Prostate cancer Mother Diabetes Dementia Sister No problems noted. Sister No problems noted. Sister Dementia Brother No problems noted. Brother Prostate cancer Son No problems noted. Son No problems noted. Daughter No problems noted. Social History Household Members Other:: Lives in a retirement 02/2024 Housing: Other Housing Other:: lives in a retirement, will stay with sister post-op Are you a primary day care teacher to a significant other at home: No Do you presently have visiting nurse or other home services: No Alcohol intake: current Alcohol intake frequency: holidays/special occasions only Comment: 1-2 Q 3 months Patient Tobacco Use Status: Former Tobacco user Tobacco use type: Cigarette Cigarettes Per Day: 2 Years Smoked: stopped 03/2023 e-Cigarette/Vaping Use: Never Used Second Hand Smoke Exposure: Yes Advance Directives Date on File: 02/19/22 service: No Current occupational status: unemployed Cognitive needs: No Hearing needs: No Vision needs: Yes Questionnaire Thrive Questionnaire Date Thrive assessed: 04/28/24 KATHRINE-7 AMB Questionnaire KATHRINE-7 Date KATHRINE - 7 assessed: 04/28/24 Source: Developed by Drs. Jaquan Castaneda, Renetta Patiño, Ugo Patel and colleagues, with an educational dwayne from [employer]. Physical exam (Primary Care) Vital Signs: Last Vital Signs Temp 97.7 F 08/03/24 13:08 Pulse 84 08/03/24 13:08 BP 160/90 H 08/03/24 13:08 Pulse Ox 97 08/03/24 13:08 Oxygen Delivery Method Room Air 08/03/24 13:08 BMI result Body Mass Index 33.1 Tobacco/Smoking Status: Tobacco use Status Tobacco use date assessed 08/03/24 08/03/24 13:14 Patient Tobacco Use Status Former Tobacco user 08/03/24 13:14 Tobacco use type Cigarette 08/03/24 13:14 e-Cigarette/Vaping Use Never Used 08/03/24 13:14 Thrive Assessment: Date of Thrive Assessment Date Thrive assessed 04/28/24 08/03/24 13:14 Const General: alert; No acute distress Eyes Conjunctivae: conjunctivae normal Resp Auscultation: clear to auscultation bilaterally Cardio Rate: regular rate Rhythm: regular rhythm GI Inspection: Yes normal to inspection Extrem General: Yes normal to inspection and No edema Coding Level of Care Code Est Pt Level 4 (81272) Complex EM visit Add On G2211 Diagnoses Obesity (BMI 30-39.9) E66.9 Ascending aorta enlargement I77.89 Hypertension I10 Hypercholesterolemia E78.00 Colon cancer screening Z12.11 Assessment & Plan Assessment & Plan (1) Obesity (BMI 30-39.9): Code(s): E66.9 - Obesity, unspecified Category: Medical Plan: Diet and exercise (2) Ascending aorta enlargement: Comment: October 2023 4.2 Code(s): I77.89 - Other specified disorders of arteries and arterioles Category: Medical Plan: Patient needs to get the blood pressure under control as well as cholesterol. Continue to monitor. (3) Hypertension: Code(s): I10 - Essential (primary) hypertension Category: Medical Plan: Continue with blood pressure medication. Decrease salt intake and exercise on amlodipine 10 mg once a day carvedilol 6.25 mg twice a day patient states has been getting high blood pressure at home also. But patient is confused with the medication she is taking. Advised to follow-up in a couple of weeks get blood work done bring the medications in so we can reconcile with the other system (4) Hypercholesterolemia: Code(s): E78.00 - Pure hypercholesterolemia, unspecified Category: Medical Plan: Avoid fried foods, chicken skin, eggs, butter margarine, pastries and meat. Be it pork or beef they have a lot of cholesterol LDL goal of less than 130 and triglyceride of less than 150 on atorvastatin 10 mg once a day (5) Colon cancer screening: Code(s): Z12.11 - Encounter for screening for malignant neoplasm of colon Category: Medical Plan: Referral to Gastroenterology Plan History of Present Illness The patient is a 64-year-old female presenting with management concerns for hypertension and hyperlipidemia. Current antihypertensive therapy includes amlodipine 10 mg daily and carvedilol 6.25 mg twice daily, but hypertension persists with home blood pressure readings around 170/100 mmHg. Elevated systolic blood pressure remains a concern, requiring further evaluation and possible adjustment of therapy. The patient reports leg pain, which may be affecting her adherence and response to treatment. Hyperlipidemia management involves atorvastatin 10 mg daily with a goal of achieving LDL levels below 130 mg/dL and triglycerides less than 150 mg/dL. Past medical history comprises a PDA repair in July 2023, hepatic steatosis, cardiomyopathy, and aortic enlargement of the ascending aorta documented in October 2023; a follow-up ultrasound is scheduled next month to assess further progression. Anxiety disorder and hepatic steatosis require ongoing monitoring. Current lifestyle management includes compliance with a fasting protocol for upcoming laboratory evaluations aimed at cardiovascular risk stratification. Health Maintenance - Mammogram up to date - Scheduled ultrasound for aortic enlargement follow-up - Referral for colonoscopy to screen for colorectal cancer - Blood work with fasting for cardiovascular risk assessment - Dietary and exercise counseling emphasized for lipid management and blood pressure control Social History - Reports consumption of caffeine - Medication adherence questioned due to incomplete regimen details - No information provided on employment or housing Review of Systems - Cardiovascular: Reports persistent high blood pressure readings at home (170/100 mmHg) - Musculoskeletal: Reports leg pain - Psychological: Anxiety disorder acknowledged Physical Exam - Cardiovascular- Blood pressure recorded as 160/100 mmHg in-office Results Plan During this visit, our primary goals were to address the patient's hypertension and hyperlipidemia, while monitoring her cardiomyopathy and aortic enlargement. The patient is on amlodipine, carvedilol, and a possible lisinopril/hydrochlorothiazide combination, with an in-office blood pressure reading of 160/100 mmHg. The patient should undergo a fasting blood workup to further tailor her management plan. Atorvastatin therapy aims to maintain specific lipid goals with continued dietary and exercise efforts advised. An upcoming ultrasound is scheduled to assess any changes in the aorta. Follow-up in two weeks will allow for a thorough review of her current medication regimen. Patient was informed and verbally consented to the use of an ambient scribe for clinic note documentation during this visit. Discussion Notes I discussed with the patient the necessity of better blood pressure control to prevent adverse cardiovascular events, emphasizing adherence to her medication regimen. We reviewed the purpose and current dosage of amlodipine, carvedilol, and atorvastatin, with attention to modifying such therapy if required, pending lab results. Risk factors were addressed, and fellow-up ultrasound was planned to evaluate the progression of her aortic enlargement. We also discussed the importance of routine screening for cancer, with her up-to-date mammogram noted and a colonoscopy referral provided. Patient Instructions - Take all prescribed medications daily as per the regimen. - Return with a complete list of all current medications, including dosages. - Follow fasting instructions for upcoming blood tests. - Attend the scheduled ultrasound next month. - Maintain dietary and exercise recommendations to support blood pressure and lipid control. - Attend the follow-up appointment in two weeks with medication bottles for review. - Follow up with Dr. Forde for your colonoscopy appointment. - Monitor blood pressure daily and report readings if they exceed 170/100 mmHg. Orders: Orders Complete Blood Count Auto Diff Today I10 - Essential (primary) hypertension Comprehensive Met. Panel Today I10 - Essential (primary) hypertension Free T4 (Free Thyroxine) Today I10 - Essential (primary) hypertension Vitamin B12 and Folate Today I10 - Essential (primary) hypertension Hemoglobin A1c Today I10 - Essential (primary) hypertension Thyroid Stimulating Hormone Today I10 - Essential (primary) hypertension Lipid Panel Today E78.00 - Pure hypercholesterolemia, unspecified, I10 - Essential (primary) hypertension Vitamin D 25-OH Total Today I10 - Essential (primary) hypertension B Type Natriuretic Peptide Today I10 - Essential (primary) hypertension CA echo transthoracic complete Today I77.89 - Other specified disorders of arteries and arterioles Referrals Gastroenterology Referral Z12.11 - Encounter for screening for malignant neoplasm of colon
[2024-08-03 13:08] VITALS: BP 160/90; PULSE 84; TEMP 36.5; O2SAT 97; BMI 33.1
== END 2024-08-03 13:46 | disposition home or self-care (01) ==
LOC: HO.HMCH 13:01
PROVIDERS: PCP Internal Medicine; Visit Provider Internal Medicine
DX: I10 Essential (primary) hypertension (principal); E66.9 Obesity, unspecified; Z68.33 Body mass index [BMI] 33.0-33.9, adult; I77.89 Other specified disorders of arteries and arterioles; E78.00 Pure hypercholesterolemia, unspecified; Z12.11 Encounter for screening for malignant neoplasm of colon

== ENCOUNTER → 2024-08-03 13:01 | Outpatient (BNVA) | payer MEDICARE, MEDICAID, SELFPAY | PROVIDERS: PCP Internal Medicine; Visit Provider Internal Medicine | DX: E66.9 Obesity, unspecified (principal); I77.89 Other specified disorders of arteries and arterioles; I10 Essential (primary) hypertension; E78.00 Pure hypercholesterolemia, unspecified | CPT/HCPCS: 99212 ==

== ENCOUNTER 2024-08-17 13:11 | Outpatient (REF) | payer MEDICARE, MEDICAID, SELFPAY ==
[2024-08-17 16:49] LABS: Bacterial Vaginosis PCR POSITIVE (Negative); Candida Group PCR NOT DETECTED (Not Detect); Candida glab krusei PCR NOT DETECTED (Not Detect); Trichomonas vaginalis PCR DETECTED (Not Detect)
[2024-08-17 17:18] LABS: CT PCR NOT DETECTED (Not Detect.); NG PCR NOT DETECTED (Not Detect.)
== END 2024-08-17 13:12 | disposition home or self-care (01) ==
LOC: HO.LNP 13:11
PROVIDERS: PCP Internal Medicine; Visit Provider Advanced Practice Midwife
DX: Z20.2 Contact with and (suspected) exposure to infections with a predominantly sexual mode of transmission (principal)
CPT/HCPCS: 81515; 87491; 87591; 99212

== ENCOUNTER 2024-08-17 13:11 | Outpatient (AMB) | payer MEDICARE, MEDICAID, SELFPAY ==
--- NOTE | 2024-08-17 13:17 | A.OFFVIS_ITS ---
Vital Signs 08/17/24 13:25 Height 5 ft 0.5 in Weight 172 lb BMI 33.0 BP 132/84 Intake Visit Reasons: GENA follow up Oxidation Operator Required: Yes Oxidation Operator Language: Filtering Machine Tender Helper Services: Oxidation Operator Present Oxidation Operator Name: Miracle Information Interpreted: non-clinical & clinical Pharmacist Intern: Pharmacist Intern Present (Miracle) Allergies No Known Allergies Allergy (Verified 08/17/24 13:24) HPI Comments Details: Patient is here today for a test of cure for Trichomonas. She admits to not completing her medication x3d, due to forgetting her prescription had her daughter's house in [place]. She reports her partner was not treated. [facility] Medical History (Updated 08/03/24 @ 13:36 by Marky Thrasher MD) Colon cancer screening [facility] Annual physical exam Encounter for annual routine gynecological examination Preoperative cardiovascular examination Heart murmur Cervical cancer screening Breast cancer screening by mammogram Hypercholesterolemia Hypertension Generalized anxiety disorder Bimalleolar fracture of right ankle Patent ductus arteriosus Pulmonary artery hypertension Tobacco abuse Surgical History Status post catheter-placed plug or coil occlusion of PDA History of ankle surgery History of tubal ligation Family History Father Prostate cancer Mother Diabetes Dementia Sister No problems noted. Sister No problems noted. Sister Dementia Brother No problems noted. Brother Prostate cancer Son No problems noted. Son No problems noted. Daughter No problems noted. Social History Household Members Other:: Lives in a alf 02/2024 Housing: Other Housing Other:: lives in a alf, will stay with sister post-op Are you a primary group care worker to a significant other at home: No Do you presently have visiting nurse or other home services: No Alcohol intake: current Alcohol intake frequency: holidays/special occasions only Comment: 1-2 Q 3 months Patient Tobacco Use Status: Former Tobacco user Tobacco use type: Cigarette Cigarettes Per Day: 2 Years Smoked: stopped 03/2023 e-Cigarette/Vaping Use: Never Used Second Hand Smoke Exposure: Yes Advance Directives Date on File: 02/19/22 service: No Current occupational status: unemployed Cognitive needs: No Hearing needs: No Vision needs: Yes Review of Systems Const All systems reviewed & are unremarkable except as noted in HPI and below Physical Exam Vital Signs: Last Vital Signs BP 132/84 08/17/24 13:25 BMI result Body Mass Index 33.0 Const General: cooperative, healthy appearing and no acute distress Orientation/consciousness: patient oriented x3 GI Inspection: Yes normal to inspection Palpation (GI): Soft to palpation and Other GI palpation findings present (Nontender) Rectal Exam - Female: visual inspection normal General: Yes bladder normal to palpation External Female Exam: normal appearance of the urethra Speculum Exam - Vagina: normal appearance of the vagina, normal palpation and abnormal vaginal discharge frothy Speculum Exam - Cervix: normal appearance of the cervix and normal palpation Bimanual exam- vagina & uterus: normal bimanual exam, normal palpation, uterine size normal, bladder normal to palpation, normal palpation, uterine shape normal and non-tender Bimanual Exam- Adnexa, other: normal adnexae Neuro General: patient oriented x3 Assessment & Plan Assessment & Plan (1) Trichomonas contact: Code(s): Z20.2 - Contact with and (suspected) exposure to infections with a predominantly sexual mode of transmission Plan Discussed: Test of cure, to include GC/chlamydia, BV panel. Stressed importance of completing all of the medication. Need for partner treatment explained. Await results for plan of care. The patient expressed understanding and agreement with the plan of care. All of her questions and concerns were addressed to the best of my ability. Annual scheduled February 2025. This note is constructed using voice recognition software. While every effort has been made to ensure accuracy, warehouse inventory clerk errors may have been included. Coding Level of Care Code Est Pt Level 3 (95359) Diagnoses Trichomonas contact Z20.2
[2024-08-17 13:25] VITALS: BP 132/84; BMI 33.0
== END 2024-08-17 13:39 | disposition home or self-care (01) ==
LOC: HO.HWS 13:11
PROVIDERS: PCP Internal Medicine; Visit Provider Advanced Practice Midwife
DX: Z20.2 Contact with and (suspected) exposure to infections with a predominantly sexual mode of transmission (principal)
CPT/HCPCS: 99213

== ENCOUNTER 2024-08-24 08:55 | Outpatient (REF) | payer MEDICARE, MEDICAID, SELFPAY ==
[2024-08-24 09:13] LABS: MANUAL DIFF FLAG NO
[2024-08-24 09:20] LABS: Basophils Absolute Auto 0.1 X10*3/uL (0.0-0.2); Basophils Percent Auto 0.8 % (0-2); Eosinophils Absolute Auto 0.1 X10*3/uL (0.0-0.4); Eosinophils Percent Auto 1.8 % (0-4); Hematocrit 43.7 % (37.0-47.0); Hemoglobin 14.6 g/dl (12.0-16.0); Imm Gran Abs Auto 0.04 X10*3/uL (0.00-0.03); Imm Gran Pct Auto 0.5 % (0.0-0.4); Lymphocytes Absolute Auto 1.9 X10*3/uL (1.2-4.9); Lymphocytes Percent Auto 25.3 % (20-40); Mean Corpuscular HGB Conc 33.4 g/dl (31.0-35.0); Mean Corpuscular Hemoglobin 31.5 pg (27.0-33.0); Mean Corpuscular Volume 94.4 fL (80.0-98.0); Mean Platelet Volume 9.5 fL (9.4-12.3); Monocytes Absolute Auto 0.5 X10*3/uL (0.1-1.2); Monocytes Percent Auto 6.3 % (2-11); Neutrophils Percent Auto 65.3 % (45-73); Platelet Count 259 X10*3/uL (160-400); Red Blood Count 4.63 X10*6/uL (4.20-5.50); White Blood Count 7.6 X10*3/uL (4.8-10.8)
[2024-08-24 09:37] LABS: Estimated Average Glucose 111 mg/dL; Hemoglobin A1C 135.6203 umol/L; Hemoglobin A1c % 5.5 % (<6.0); Total Hemoglobin (HGBA1C) 3727.2247 umol/L
[2024-08-24 09:55] LABS: B Type Natriuretic Peptide 42 pg/mL (<100)
[2024-08-24 10:18] LABS: Alanine Aminotransferase 131 U/L (0-31); Albumin Level 4.1 g/dL (3.5-5.0); Alkaline Phosphatase 134 U/L (39-117); Anion Gap 11 (12-20); Aspartate Amino Transferase 75 U/L (5-31); Bilirubin Total 0.7 mg/dL (0.0-1.0); Blood Urea Nitrogen 11 mg/dL (9-16); Calcium 9.4 mg/dL (8.4-10.2); Carbon Dioxide 31 mmol/L (22-29); Chloride 101 mmol/L (96-108); Cholesterol 232 mg/dL (<200); Estimated Glomerular Filt Rate > 60; Free T4 (Free Thyroxine) 0.91 ng/dL (0.71-1.85); Glucose Random 110 mg/dL (60-115); HDL Cholesterol 57 mg/dL (>40); LDL Cholesterol Calculated 151 mg/dL (<100); Potassium 3.9 mmol/L (3.3-5.1); Sodium 139 mmol/L (135-145); Thyroid Stimulating Hormone 2.14 uIU/mL (0.32-4.0); Total Protein 7.9 g/dL (6.5-8.0); Triglycerides 122 mg/dL (<150); Vitamin D 25-OH Total 9.6 ng/mL (>30)
[2024-08-24 10:36] LABS: Folate 10.8 ng/mL (> or = 4.0); Vitamin B12 298 pg/mL (200-900)
== END 2024-08-24 08:56 | disposition home or self-care (01) ==
LOC: HO.LAB 08:55
PROVIDERS: PCP Internal Medicine; Visit Provider Internal Medicine
DX: I10 Essential (primary) hypertension (principal); E78.00 Pure hypercholesterolemia, unspecified; E66.9 Obesity, unspecified; Z68.33 Body mass index [BMI] 33.0-33.9, adult; R79.89 Other specified abnormal findings of blood chemistry; Z79.899 Other long term (current) drug therapy
CPT/HCPCS: 36415; 80053; 80061; 82306; 82607; 82746; 83036; 83880; 84439; 84443; 85025; 96127; 99212

== ENCOUNTER 2024-08-24 13:53 | Outpatient (AMB) | payer MEDICARE, MEDICAID, SELFPAY ==
--- NOTE | 2024-08-24 13:58 | MHC.PC.OV ---
Vital Signs 08/24/24 13:59 Height 5 ft 0.5 in Weight 176 lb 2 oz BMI 33.8 BP 148/96 H Blood Pressure Location Lt brachial Position Sitting Pulse 71 Pulse Source Pulse Oximeter Temp 97.1 F Temp Source Temporal Artery Scan Pulse Oximetry (%) 98 Oxygen Delivery Method Room Air Intake Visit Reasons: HTN bring med ([address] Thrasher) Intake Note: Patient is here to follow up on HTN. Category Analyst Required: Yes Category Analyst Language: Lockstitch Sleeve Setter Name: Tapan ([id number]) Information Interpreted: non-clinical & clinical Computer Art Instructor: Not Required per policy Accompanied by: Self / Same As Patient Allergies No Known Allergies Allergy (Verified 08/24/24 13:58) Medication List - Last Reconciled 08/24/24 by Elizabeth Henderson PA-C atorvastatin 10 mg PO BEDTIME blood pressure monitor (Blood Pressure Kit) As directed brimonidine 0.2% 1 drp ophthalmic (eye) BID carvedilol 6.25 mg PO BID hydroxyzine HCl 25 mg PO BID PRN lisinopril 40 mg PO DAILY meloxicam 7.5 mg PO DAILY metronidazole 500 mg PO BID 7 days [PULL UPS MEDIUM As directed] [rollator walker As directed] sertraline 25 mg PO DAILY zolpidem 5 mg PO BEDTIME PRN Tobacco use date assessed: 08/24/24 Dental Screening Dental Screen Date: 08/03/24 HPI HTN bring med ([address] Thrasher) HPI Details 64-year-old female with past medical history of cholelithiasis, hypertension, hypercholesterolemia, generalized anxiety disorder, hepatic steatosis, cardiomegaly and urge incontinence last seen 07/2024 coming in for follow up on blood pressure. Presenting with issues related to hypertension and dyslipidemia. Blood pressure has been variably controlled, reaching as high as 150/98 mmHg during the visit despite lisinopril therapy. Discussion about increasing carvedilol occurred due to high readings. Diet constraints are significant due to living in a senior living; diet mainly controlled through microwave use, which may contribute to dietary non-compliance. Dyslipidemia has been managed with atorvastatin, but therapy is complicated by elevated liver enzymes. There was improvement in total cholesterol levels, though they remain above target. [facility] Medical History Colon cancer screening Homeless Annual physical exam Encounter for annual routine gynecological examination Preoperative cardiovascular examination Heart murmur Cervical cancer screening Breast cancer screening by mammogram Hypercholesterolemia Hypertension Generalized anxiety disorder Bimalleolar fracture of right ankle Patent ductus arteriosus Pulmonary artery hypertension Tobacco abuse Surgical History Status post catheter-placed plug or coil occlusion of PDA History of ankle surgery History of tubal ligation Family History Father Prostate cancer Mother Diabetes Dementia Sister No problems noted. Sister No problems noted. Sister Dementia Brother No problems noted. Brother Prostate cancer Son No problems noted. Son No problems noted. Daughter No problems noted. Social History Household Members Other:: Lives in a senior living 02/2024 Housing: Other Housing Other:: lives in a senior living, will stay with sister post-op Are you a primary healthcare receptionist to a significant other at home: No Do you presently have visiting nurse or other home services: No Alcohol intake: current Alcohol intake frequency: holidays/special occasions only Comment: 1-2 Q 3 months Patient Tobacco Use Status: Former Tobacco user Tobacco use type: Cigarette Cigarettes Per Day: 2 Years Smoked: stopped 03/2023 e-Cigarette/Vaping Use: Never Used Second Hand Smoke Exposure: Yes Advance Directives Date on File: 02/19/22 service: No Current occupational status: unemployed Cognitive needs: No Hearing needs: No Vision needs: Yes Questionnaire PHQ-9 Over the last 2 weeks, how often have you been bothered by any of the following problems? 1. Little interest or pleasure in doing things: not at all 2. Feeling down, depressed, or hopeless: not at all 3. Trouble falling or staying asleep, or sleeping too much: not at all 4. Feeling tired or having little energy: not at all 5. Poor appetite or overeating: several days 6. Feeling bad about yourself - or that you are a failure or have let yourself or your family down: not at all 7. Trouble concentrating on things, such as reading the newspaper or watching television: not at all 8. Moving or speaking so slowly that other people could have noticed. Or the opposite - being so fidgety or restless that you have been moving around a lot more than usual: not at all 9. Thoughts that you would be better off or of hurting yourself in some way: not at all Total score: 1 Depression Screening Interpretation: Positive Depression Screening Done: Yes Source: Developed by Drs. Jaquan Castaneda, Renetta Patiño, Ugo Patel and colleagues, with an educational dwayne from [facility]. Thrive Questionnaire Date Thrive assessed: 04/28/24 I am a: Patient What is your living situation today?: I have a steady place to live Within the past 12 months, did the food you bought not last and you didn't have the money to get more?: Never true Within the past 12 months, did you worry whether your food would run out before you got money to buy more?: Never true Do you have trouble paying for medicines?: No Do you have trouble getting transportation to medical appointments?: No Do you have trouble paying your heating and electricity bill?: No Do you have trouble taking care of your child, family member or friend?: No Do you have trouble with day-to-day activities such as bathing, preparing meals, shopping, managing finances, etc.?: No Are you currently unemployed and looking for a job?: No Are you interested in more education?: No Please select the resources that you would like help with: None Currently or been in a relationship where the following occur: No concerns reported THRIVE Score: 0 AUDIT C Alcohol Use Questionnaire (AUDIT-C) 1. How often do you have a drink containing alcohol?: Never Total Score: 0 KATHRINE-7 AMB Questionnaire KATHRINE-7 Date KATHRINE - 7 assessed: 04/28/24 Feeling nervous, anxious, or on edge: 0 = Not at all Not being able to stop or control worryin = Not at all Worrying too much about different things: 0 = Not at all Trouble relaxin = Not at all Being so restless that it is hard to sit still: 0 = Not at all Becoming easily annoyed or irritable: 2 = More than half the days Feeling afraid as if something awful might happen: 0 = Not at all Total KATHRINE-7 score (0-4 normal; 5-9 mild; 10-14 moderate; 15-21 severe): 2 Source: Developed by Drs. Jaquan Castaneda, Renetta Patiño, Ugo Patel and colleagues, with an educational dwayne from [facility] [place]. Review of Systems Const Denies body aches, Denies chills, Denies fever(s), Denies headache(s) and Denies poor appetite Eyes Reports no additional complaints ENT Denies dysphagia, Denies dizziness, Denies headache(s) and Denies odynophagia Card Denies chest pain, Denies syncope, Denies edema, Denies irregular heart rhythm, Denies lightheadedness and Denies dyspnea Resp Denies cough and Denies dyspnea GI Denies abdominal pain, Denies constipation, Denies dysphagia, Denies diarrhea, Denies nausea, Denies odynophagia and Denies vomiting Reports no additional complaints Musc Reports no additional complaints and Denies abnormal gait Skin/Breast Reports system reviewed and no additional complaints, except as documented Neuro Denies abnormal gait, Denies dizziness, Denies syncope and Denies headache(s) Psych Reports no additional complaints Physical exam (Primary Care) Vital Signs: Last Vital Signs Temp 97.1 F 08/24/24 13:59 Oxygen Delivery Method Room Air 08/24/24 13:59 BMI result Body Mass Index 33.8 Tobacco/Smoking Status: Tobacco use Status Tobacco use date assessed 08/03/24 08/03/24 13:14 Patient Tobacco Use Status Former Tobacco user 08/03/24 13:14 Tobacco use type Cigarette 08/03/24 13:14 e-Cigarette/Vaping Use Never Used 08/03/24 13:14 Depression Screening Interpretation: Positive Thrive Assessment: Date of Thrive Assessment Date Thrive assessed 04/28/24 08/03/24 13:14 Currently or been in a relationship where the following occur: No concerns reported Const General: cooperative, healthy appearing, comfortable and no acute distress Orientation/consciousness: patient oriented x3 HENMT Head: Yes normocephalic Ears: hearing grossly normal bilaterally General nose exam: Normal external nose present Eyes General: appearance normal, both eyes and all related structures Conjunctivae: conjunctivae normal Neck Neck: Yes full ROM and Yes no lymphadenopathy Resp Effort & Inspection: normal respiratory effort Auscultation: clear to auscultation bilaterally, no crackles, no rales, no rhonchi and no wheezes Cardio Rate: regular rate Rhythm: regular rhythm Skin General skin exam: no rashes or lesions noted Neuro General: patient oriented x3 Gait exam (Neuro): Normal gait present Extrem General: Yes normal to inspection, Yes full ROM and No edema Psych Affect: normal affect Attitude: cooperative Insight: Good insight present (Psych) Judgement: Good judgement present (Psych) Coding Level of Care Code Est Pt Level 4 (21372) Diagnoses Hypertension I10 Hypercholesterolemia E78.00 Obesity (BMI 30-39.9) E66.9 Elevated LFTs R79.89 Assessment & Plan Assessment & Plan (1) Hypertension: Code(s): I10 - Essential (primary) hypertension Category: Medical Plan: Continue on current blood pressure medication. Avoid salt intake and encourage healthy diet and regular exercise. Blood pressure continues to be elevated in the office today when retaken 152/98. Patient does routinely take her blood pressure medications. Plan to increase carvedilol to 12.5 b.i.d. and continue on lisinopril 40 mg. Advised patient to take blood pressure daily at home and bring log to next visit. (2) Hypercholesterolemia: Code(s): E78.00 - Pure hypercholesterolemia, unspecified Category: Medical Plan: Avoid foods that are high in cholesterol such as red meat, fried foods, eggs and baked goods. Triglyceride goal of less than 150 and LDL goal of less than 130. Patient was started on atorvastatin 10 mg on repeat blood work patient has elevated LFTs necessitating discontinuation of this medication at this time. Plan to repeat labs in 2 months. Stressed with patient the importance of dietary modification in the setting of discontinued atorvastatin. (3) Obesity (BMI 30-39.9): Code(s): E66.9 - Obesity, unspecified Category: Medical Plan: Healthy diet and regular exercise is encouraged. (4) Elevated LFTs: Code(s): R79.89 - Other specified abnormal findings of blood chemistry Category: Medical Plan: Patient having elevated LFTs after initiation of atorvastatin 10 mg. Plan to discontinue this medication at this time and repeat cholesterol labs and liver tests in 2 months. Avoidance of Tylenol and alcohol Plan To manage the patient's hypertension, an increased dosage of carvedilol is planned given the insufficient control on her current regimen. Lisinopril remains at its highest safe dose. Atorvastatin will be discontinued due to liver enzyme elevation, necessitating stringent dietary fat control to maintain cholesterol improvements. Vitamin D deficiency needs addressing through dietary changes or supplementation. Continuous monitoring of her blood pressure and cholesterol will be essential, with the goal to review in two months. Recommendations focus on dietary modification to mitigate risks without pharmacotherapy where possible. This note was constructed using voice recognition software. While every effort has been made to ensure accuracy and electrician radio, still areas may have been included sometimes these areas may affect the content or meeting of the given symptoms. Total time spent caring for the patient today was 20 minutes. This includes time spent before the visit reviewing the chart, time spent during the visit, and time spent after the visit and documentation. Patient was informed and verbally consented to the use of an ambient scribe for clinic note documentation during this visit. Orders: Orders Hepatitis B,C Profile Today R79.89 - Other specified abnormal findings of blood chemistry Liver Panel 2 Months R79.89 - Other specified abnormal findings of blood chemistry Lipid Panel 2 Months E78.00 - Pure hypercholesterolemia, unspecified Medications: New carvedilol must administer with a meal/food 12.5 mg PO BID 60 tabs 1RF Discontinued carvedilol must administer with a meal/food Discontinued Reason: Patient no longer taking 6.25 mg PO BID 60 tabs 2RF I10 - Essential (primary) hypertension On Hold atorvastatin Hold Comment: Doctor's Order 10 mg PO BEDTIME 90 tabs 2RF E78.00 - Pure hypercholesterolemia, unspecified
[2024-08-24 13:59] VITALS: BP 148/96; PULSE 71; TEMP 36.2; O2SAT 98; BMI 33.8
== END 2024-08-24 14:39 | disposition home or self-care (01) ==
LOC: HO.HMCH 13:54
PROVIDERS: PCP Internal Medicine
DX: I10 Essential (primary) hypertension (principal); E78.00 Pure hypercholesterolemia, unspecified; E66.9 Obesity, unspecified; R79.89 Other specified abnormal findings of blood chemistry; Z68.33 Body mass index [BMI] 33.0-33.9, adult

== ENCOUNTER → 2024-08-31 13:36 | Outpatient (REF) | payer MEDICARE, MEDICAID, SELFPAY ==
--- NOTE | 2024-08-31 13:39 | CA_ITS ---
Transthoracic Echocardiogram Patient (Last, First, Middle): Francie Li, Gender: Female Date of : 1960 Age: 64 Procedure Date: 08/31/2024 Procedure Type: Transthoracic Echocardiogram Location: OP Height: 157.48 cm Weight: 79.38 kg BSA: 1.81 m2 Heart Rate: bpm BP: 124 / 80 mmHg Fishing Rod Mechanic: JACKIE Referring MD: Marky Thrasher MD Cable Braider: Asaf Bean MD Symptoms: I77.89 - Other specified disorders of arteries and arterioles Study Quality: Adequate ECG Rhythm: Sinus Conclusions: - 1. Moderately reduced LV ejection fraction of 35-40% with moderate lead increased left ventricular wall thickness with impaired relaxation filling pattern 2. Normal cardiac valvular Dopplers 3. Mildly dilated ascending aorta at 4 cm 4. No gross pericardial effusion Findings Left Ventricle Normal left ventricular cavity size. There is moderately increased left ventricular wall thickness. The left ventricular systolic function is moderately decreased. The visually estimated ejection fraction is between 35 40%. Spectral Doppler is indicative of an impaired relaxation filling pattern. E/E prime ratio is between 8 and 15 consistent with indeterminate filling pressures. Right Ventricle Normal right ventricular cavity size. There is moderately decreased right ventricular systolic function. Atria The left atrium is normal in size. There is no evidence of interatrial shunt. The right atrium is normal in size. Aortic Valve Normal aortic valve structure and function. There is no aortic valve stenosis. There is mild aortic valve regurgitation. Mitral Valve Normal mitral valve structure and function. There is trace mitral valve regurgitation. There is no mitral valve stenosis. Pulmonic Valve The pulmonic valve is likely normal. Tricuspid Valve Normal tricuspid valve structure. There is trace tricuspid valve regurgitation. Normal right atrial pressure. There is no evidence of pulmonary hypertension. Great Vessels The pulmonary artery was not well visualized. There is mild dilatation of the ascending aorta measuring 4.00 cm. Venous The inferior vena cava is normal in size. Pericardium/Pleural There is no evidence of pericardial effusion. Prior Study Comparison Changes noted compared to prior study dated: 10/28/2023. LV ejection fraction has reduced Measurements 2D Linear Measurements IVSd: 1.39 0.6-0.9/0.6-1.0 cm LVIDd: 4.65 3.9-5.3/4.2-5.9 cm LVIDd Index: 2.57 2.4-3.2/2.2-3.1 cm/m2 LVIDs: 2.98 2.0-3.6 cm LVPWd: 1.38 0.7-1.1 cm Ao Root: 3.60 2.1-3.5 cm LA Diam: 4.20 2.7-3.8/3.0-4.0 cm LAIDs Index: 2.32 1.5-2.3 cm/m2 LV Mass: 320.29 67-162/88-224 g LV Mass Index: 176.96 43-95/49-115 g/m2 LVOT Diam: 2.20 3.0+(-)1.3 cm 2D Systolic Function EF 4C: 34.10 >55% EF 2C: 43.60 >55% EF BiP: 37.40 >55% Mitral Valve MV Pk E: 0.39 MV PK A: 0.72 MV Decel Time: 176.00 E/A: 0.50 E'Lateral: 3.70 E'Medial: 3.37 E/E' Med: 11.50 E/E' Lat: 10.40 PHT: 52.00 MVA PHT: 4.23 Decel Hickman: 2.19 Aortic Valve AoV Pk Que: 1.10 AoV Mn Que: 0.72 AoV VTI: 0.21 AoV Pk Grad: 5.00 Aov Mn Grad: 3.00 NANI Cont.VTI: 2.71 AI Pk Que: 4.82 AI Hickman: 2.24 LVOT LVOT Pk Que: 0.82 LVOT Mn Que: 0.55 LVOT VTI: 0.15 LVOT Pk Grad: 3.00 LVOT Mn Grad: 2.00 LVOT Diam: 2.20 LVOT Area: 3.80 Diastolic Function MV Pk E: 0.39 MV Pk A: 0.72 E/A: 0.50 E'Medial: 3.37 E/E' Med: 11.50 E' Laterial: 3.70 E/E' Lat: 10.40 Right Ventricle TAPSE (mm): 15.00 TVS' Que: 8.00 Tricuspid Valve TR Pk Que: 1.40 TR Pk Grad: 8.00 RA Press: 3.00 RVSP: 11.00 Great Vessels Aorta Ao Root-2D: 3.60 2.0-3.7 cm Ao Asc: 4.00 2.1-3.4 cm Pulmonary Valve PV Pk Que: 0.86 Peak PV Grad: 3.00 Updated in Other Vendor System with Status of Final Asaf Bean MD electronically signed on 09/01/2024 11:30:31 AM with status of Final
== END ==
LOC: HO.CARD 13:36
PROVIDERS: PCP Internal Medicine; Visit Provider Internal Medicine
DX: I77.89 Other specified disorders of arteries and arterioles (principal)
CPT/HCPCS: 93306

== ENCOUNTER → 2024-08-31 13:39 | Outpatient (BNV) | payer MEDICARE, MEDICAID, SELFPAY | PROVIDERS: PCP Internal Medicine; Visit Provider Internal Medicine Cardiovascular Disease | DX: I35.1 Nonrheumatic aortic (valve) insufficiency (principal); I77.810 Thoracic aortic ectasia | CPT/HCPCS: 93306 ==

== ENCOUNTER 2024-10-25 13:39 | Outpatient (AMB) | payer MEDICARE, MEDICAID, SELFPAY ==
--- NOTE | 2024-10-25 13:48 | MHC.PC.OV ---
Vital Signs 10/25/24 13:50 10/25/24 14:17 Height 5 ft 0.5 in Weight 173 lb BMI 33.2 BP 172/84 H 170/106 H Blood Pressure Location Lt brachial Lt brachial Position Sitting Sitting Pulse 91 Pulse Oximetry (%) 97 Oxygen Delivery Method Room Air Intake Visit Reasons: f/u HTN and HLD Extension Work Instructor Required: No Accompanied by: Self / Same As Patient Allergies No Known Allergies Allergy (Verified 10/25/24 13:49) Medication List - Last Reconciled 10/25/24 by Elizabeth Henderson PA-C atorvastatin 10 mg PO BEDTIME Held on 08/24/24. Instructions: Doctor's Order blood pressure monitor (Blood Pressure Kit) As directed brimonidine 0.2% 1 drp ophthalmic (eye) BID carvedilol 12.5 mg PO BID lisinopril 40 mg PO DAILY meloxicam 7.5 mg PO DAILY metronidazole 500 mg PO BID 7 days [PULL UPS MEDIUM As directed] [rollator walker As directed] sertraline 25 mg PO DAILY zolpidem 5 mg PO BEDTIME PRN Tobacco use date assessed: 10/25/24 Dental Screening Dental Screen Date: 10/25/24 Did you have a dental visit in the last 12 months?: Yes Did you have a dental problem in the last 6 months where you did not have access to dental care?: No Was dental information given to patient?: No HPI f/u HTN and HLD HPI Details 64-year-old female with past medical history of cholelithiasis, hypertension, hypercholesterolemia, generalized anxiety disorder, hepatic steatosis, cardiomegaly and urge incontinence coming in for follow up on blood pressure Presenting with high blood pressure and depression. Reports consistently high blood pressure readings at home, ranging from 160/140 mmHg to 178/110 mmHg. Currently taking carvedilol and lisinopril for blood pressure management. [facility] [place] a [place], contributing to a high-sodium diet impacting blood pressure control. On sertraline for depression, reports feeling depressed due to family issues. [facility] Medical History Colon cancer screening Homeless Annual physical exam Encounter for annual routine gynecological examination Preoperative cardiovascular examination Heart murmur Cervical cancer screening Breast cancer screening by mammogram Hypercholesterolemia Hypertension Generalized anxiety disorder Bimalleolar fracture of right ankle Patent ductus arteriosus Pulmonary artery hypertension Tobacco abuse Surgical History Status post catheter-placed plug or coil occlusion of PDA History of ankle surgery History of tubal ligation Family History Father Prostate cancer Mother Diabetes Dementia Sister No problems noted. Sister No problems noted. Sister Dementia Brother No problems noted. Brother Prostate cancer Son No problems noted. Son No problems noted. Daughter No problems noted. Social History Household Members Other:: Lives in a penitentiary 02/2024 Housing: Other Housing Other:: lives in a penitentiary, will stay with sister post-op Are you a primary reservoir caretaker to a significant other at home: No Do you presently have visiting nurse or other home services: No Alcohol intake: current Alcohol intake frequency: holidays/special occasions only Comment: 1-2 Q 3 months Patient Tobacco Use Status: Former Tobacco user Tobacco use type: Cigarette Cigarettes Per Day: 2 Years Smoked: stopped 03/2023 e-Cigarette/Vaping Use: Never Used Second Hand Smoke Exposure: Yes Advance Directives Date on File: 02/19/22 service: No Current occupational status: unemployed Cognitive needs: No Hearing needs: No Vision needs: Yes Questionnaire Thrive Questionnaire Date Thrive assessed: 10/25/24 I am a: Patient What is your living situation today?: I have a steady place to live Within the past 12 months, did the food you bought not last and you didn't have the money to get more?: Never true Within the past 12 months, did you worry whether your food would run out before you got money to buy more?: Never true Do you have trouble paying for medicines?: No Do you have trouble getting transportation to medical appointments?: No Do you have trouble paying your heating and electricity bill?: No Do you have trouble taking care of your child, family member or friend?: No Do you have trouble with day-to-day activities such as bathing, preparing meals, shopping, managing finances, etc.?: No Are you currently unemployed and looking for a job?: No Are you interested in more education?: No Please select the resources that you would like help with: None Currently or been in a relationship where the following occur: No concerns reported THRIVE Score: 0 KATHRINE-7 AMB Questionnaire KATHRINE-7 Date KATHRINE - 7 assessed: 10/25/24 Source: Developed by Drs. Jaquan Castaneda, Renetta Patiño, Ugo Patel and colleagues, with an educational dwayne from [employer]. Review of Systems Const Denies body aches, Denies chills, Denies fever(s), Denies headache(s) and Denies poor appetite Eyes Reports no additional complaints ENT Denies dizziness and Denies headache(s) Card Denies chest pain, Denies edema, Denies irregular heart rhythm, Denies lightheadedness and Denies dyspnea Resp Denies dyspnea GI Denies diarrhea, Denies nausea and Denies vomiting Reports no additional complaints Musc Reports no additional complaints and Denies abnormal gait Skin/Breast Reports system reviewed and no additional complaints, except as documented Neuro Denies abnormal gait, Denies dizziness and Denies headache(s) Psych Reports no additional complaints Physical exam (Primary Care) Vital Signs: Last Vital Signs Pulse 91 10/25/24 13:50 BP 172/84 H 10/25/24 13:50 Pulse Ox 97 10/25/24 13:50 Oxygen Delivery Method Room Air 10/25/24 13:50 BMI result Body Mass Index 33.2 Tobacco/Smoking Status: Tobacco use Status Tobacco use date assessed 10/25/24 10/25/24 13:56 Patient Tobacco Use Status Former Tobacco user 10/25/24 13:56 Tobacco use type Cigarette 10/25/24 13:56 e-Cigarette/Vaping Use Never Used 10/25/24 13:56 Thrive Assessment: Date of Thrive Assessment Date Thrive assessed 10/25/24 10/25/24 13:56 Currently or been in a relationship where the following occur: No concerns reported Const General: cooperative, healthy appearing, comfortable and no acute distress Orientation/consciousness: patient oriented x3 HENMT Head: Yes normocephalic Ears: hearing grossly normal bilaterally General nose exam: Normal external nose present Eyes General: appearance normal, both eyes and all related structures Conjunctivae: conjunctivae normal Neck Neck: Yes full ROM and Yes no lymphadenopathy Resp Effort & Inspection: normal respiratory effort Auscultation: clear to auscultation bilaterally, no crackles, no rales, no rhonchi and no wheezes Cardio Rate: regular rate Rhythm: regular rhythm Skin General skin exam: no rashes or lesions noted Neuro General: patient oriented x3 Gait exam (Neuro): Normal gait present Extrem General: Yes normal to inspection, Yes full ROM and No edema Psych Affect: normal affect Attitude: cooperative Insight: Good insight present (Psych) Judgement: Good judgement present (Psych) Coding Level of Care Code Est Pt Level 3 (33848) Diagnoses Hypertension I10 Hypercholesterolemia E78.00 Obesity (BMI 30-39.9) E66.9 Elevated LFTs R79.89 Generalized anxiety disorder F41.1 Assessment & Plan Assessment & Plan (1) Hypertension: Code(s): I10 - Essential (primary) hypertension Category: Medical Plan: Continue on current blood pressure medication. Avoid salt intake and encourage healthy diet and regular exercise. Blood pressure remains elevated in the office today 170/110 and patient is currently asymptomatic. I reviewed reg flag symptoms and when to present for re-evaluation. Discussed with Dr. Thrasher plan increase Carvedilol to 25 mg BID and follow up in 6 weeks. (2) Hypercholesterolemia: Code(s): E78.00 - Pure hypercholesterolemia, unspecified Category: Medical Plan: Avoid foods that are high in cholesterol such as red meat, fried foods, eggs and baked goods. Triglyceride goal of less than 150 and LDL goal of less than 130. At her last visit she was discontinued off of atorvastatin 10 mg as her LFTs were suddenly increased. Reminded patient about blood work (3) Obesity (BMI 30-39.9): Code(s): E66.9 - Obesity, unspecified Category: Medical Plan: Healthy diet and regular exercise is encouraged. (4) Elevated LFTs: Code(s): R79.89 - Other specified abnormal findings of blood chemistry Category: Medical Plan: Reminded patient about blood work. (5) Generalized anxiety disorder: Comment: [facility] counselling Code(s): F41.1 - Generalized anxiety disorder Category: Medical Plan: Has been having worsening anxiety since the loss of a family member. Declining increase in sertraline at this time. Plan The management plan for the patient's essential hypertension involves increasing the carvedilol dosage to 25 mg twice daily, while maintaining the lisinopril at 40 mg. The patient should continue to monitor her blood pressure at home and be cautious of sodium intake due to her [facility]itent[facility] living conditions. Regarding depression, the patient will remain on her current sertraline dosage, as she reports satisfactory sleep and does not wish to increase the dose. This note was constructed using voice recognition software. While every effort has been made to ensure accuracy and lace mender, still areas may have been included sometimes these areas may affect the content or meeting of the given symptoms. Total time spent caring for the patient today was 20 minutes. This includes time spent before the visit reviewing the chart, time spent during the visit, and time spent after the visit and documentation. Patient was informed and verbally consented to the use of an ambient scribe for clinic note documentation during this visit. Medications: New carvedilol must administer with a meal/food 25 mg PO BID 180 tabs 0RF 90 days Discontinued carvedilol must administer with a meal/food Discontinued Reason: Patient no longer taking 12.5 mg PO BID 60 tabs 1RF metronidazole Discontinued Reason: Patient Completed Course 500 mg PO BID 7 days 14 tabs 0RF
[2024-10-25 13:50] VITALS: BP 172/84; PULSE 91; O2SAT 97; BMI 33.2
[2024-10-25 14:17] VITALS: BP 170/106
== END 2024-10-25 14:26 | disposition home or self-care (01) ==
LOC: HO.HMCH 13:40
PROVIDERS: PCP Internal Medicine
DX: I10 Essential (primary) hypertension (principal); E66.9 Obesity, unspecified; Z68.33 Body mass index [BMI] 33.0-33.9, adult; E78.00 Pure hypercholesterolemia, unspecified; R79.89 Other specified abnormal findings of blood chemistry; F41.1 Generalized anxiety disorder

== ENCOUNTER → 2024-10-25 13:39 | Outpatient (BNVA) | payer MEDICARE, MEDICAID, SELFPAY | PROVIDERS: PCP Internal Medicine | DX: I10 Essential (primary) hypertension (principal); E78.00 Pure hypercholesterolemia, unspecified; R79.89 Other specified abnormal findings of blood chemistry; F41.1 Generalized anxiety disorder; E66.9 Obesity, unspecified; Z68.33 Body mass index [BMI] 33.0-33.9, adult; Z71.3 Dietary counseling and surveillance | CPT/HCPCS: 99212 ==

== ENCOUNTER 2024-12-14 09:01 | Outpatient (AMB) | payer MEDICARE, MEDICAID, SELFPAY ==
[2024-12-14 09:06] VITALS: BP 168/100; PULSE 79; O2SAT 97; BMI 33.4
--- NOTE | 2024-12-14 09:06 | MHC.PC.OV ---
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 Instructions: Doctor's Order blood pressure monitor (Blood Pressure Kit) As directed brimonidine 0.2% 1 drp ophthalmic (eye) BID carvedilol 25 mg PO BID 90 days lisinopril 40 mg PO DAILY meloxicam 7.5 mg PO DAILY [PULL UPS MEDIUM As directed] [rollator walker As directed] sertraline 25 mg PO DAILY zolpidem 5 mg PO BEDTIME PRN Tobacco use date assessed: 12/14/24 Dental Screening Dental Screen Date: 12/14/24 HPI f/u HTN HPI Details 64-year-old female with past medical history of cholelithiasis, hypertension, hypercholesterolemia, generalized anxiety disorder, hepatic steatosis, cardiomegaly and urge incontinence last seen 10/29 coming in for follow up on blood pressure. Presenting for management of hypertension. The patient has a history of hypertension, currently managed with lisinopril and carvedilol. Blood pressure readings have been consistently high, with a recent measurement of 180/105 mmHg. The patient denies using a home blood pressure monitor due to it being broken. Dietary habits include excessive added salt, but the patient is advised to further reduce salt intake. The patient has not experienced chest pain or shortness of breath. [facility] Medical History Colon cancer screening Homeless Annual physical exam Encounter for annual routine gynecological examination Preoperative cardiovascular examination Heart murmur Cervical cancer screening Breast cancer screening by mammogram Hypercholesterolemia Hypertension Generalized anxiety disorder Bimalleolar fracture of right ankle Patent ductus arteriosus Pulmonary artery hypertension Tobacco abuse Surgical History Status post catheter-placed plug or coil occlusion of PDA History of ankle surgery History of tubal ligation Family History Father Prostate cancer Mother Diabetes Dementia Sister No problems noted. Sister No problems noted. Sister Dementia Brother No problems noted. Brother Prostate cancer Son No problems noted. Son No problems noted. Daughter No problems noted. Social History Household Members Other:: Lives in a penitentiary 02/2024 Housing: Other Housing Other:: lives in a penitentiary, will stay with sister post-op Are you a primary primary care coordinator to a significant other at home: No Do you presently have visiting nurse or other home services: No Alcohol intake: current Alcohol intake frequency: holidays/special occasions only Comment: 1-2 Q 3 months Patient Tobacco Use Status: Former Tobacco user Tobacco use type: Cigarette Cigarettes Per Day: 2 Years Smoked: stopped 03/2023 e-Cigarette/Vaping Use: Never Used Second Hand Smoke Exposure: Yes Advance Directives Date on File: 02/19/22 service: No Current occupational status: unemployed Cognitive needs: No Hearing needs: No Vision needs: Yes Questionnaire PHQ-9 Over the last 2 weeks, how often have you been bothered by any of the following problems? 1. Little interest or pleasure in doing things: not at all 2. Feeling down, depressed, or hopeless: not at all 3. Trouble falling or staying asleep, or sleeping too much: not at all 4. Feeling tired or having little energy: not at all 5. Poor appetite or overeating: several days 6. Feeling bad about yourself - or that you are a failure or have let yourself or your family down: not at all 7. Trouble concentrating on things, such as reading the newspaper or watching television: not at all 8. Moving or speaking so slowly that other people could have noticed. Or the opposite - being so fidgety or restless that you have been moving around a lot more than usual: not at all 9. Thoughts that you would be better off or of hurting yourself in some way: not at all Total score: 1 Depression Screening Interpretation: Positive Depression Screening Done: Yes Source: Developed by Drs. Jaquan L. Rneetta Castaneda Kurt Kroenke and colleagues, with an educational dwayne from [employer]. Thrive Questionnaire Date Thrive assessed: 12/14/24 I am a: Patient What is your living situation today?: I have a steady place to live Within the past 12 months, did the food you bought not last and you didn't have the money to get more?: Never true Within the past 12 months, did you worry whether your food would run out before you got money to buy more?: Never true Do you have trouble paying for medicines?: No Do you have trouble getting transportation to medical appointments?: No Do you have trouble paying your heating and electricity bill?: No Do you have trouble taking care of your child, family member or friend?: No Do you have trouble with day-to-day activities such as bathing, preparing meals, shopping, managing finances, etc.?: No Are you currently unemployed and looking for a job?: No Are you interested in more education?: No Please select the resources that you would like help with: None Currently or been in a relationship where the following occur: No concerns reported THRIVE Score: 0 AUDIT C Alcohol Use Questionnaire (AUDIT-C) 1. How often do you have a drink containing alcohol?: Never 3. How often do you have six or more drinks on one occasion?: Never Total Score: 0 KATHRINE-7 AMB Questionnaire KATHRINE-7 Date KATHRINE - 7 assessed: 12/14/24 Feeling nervous, anxious, or on edge: 0 = Not at all Not being able to stop or control worryin = Not at all Worrying too much about different things: 0 = Not at all Trouble relaxin = Not at all Being so restless that it is hard to sit still: 0 = Not at all Becoming easily annoyed or irritable: 0 = Not at all Feeling afraid as if something awful might happen: 0 = Not at all Total KATHRINE-7 score (0-4 normal; 5-9 mild; 10-14 moderate; 15-21 severe): 0 Source: Developed by Renetta Watson Kurt Kroenke and colleagues, with an educational dwayne from [employer]. Review of Systems Const Denies body aches, Denies chills, Denies fever(s), Denies headache(s) and Denies poor appetite Eyes Reports no additional complaints ENT Denies dizziness and Denies headache(s) Card Denies chest pain, Denies syncope, Denies edema, Denies lightheadedness and Denies dyspnea Resp Denies cough and Denies dyspnea GI Denies abdominal pain, Denies nausea and Denies vomiting Reports no additional complaints Musc Reports no additional complaints and Denies abnormal gait Skin/Breast Reports system reviewed and no additional complaints, except as documented Neuro Denies abnormal gait, Denies dizziness, Denies syncope and Denies headache(s) Psych Reports no additional complaints Physical exam (Primary Care) Vital Signs: Last Vital Signs Pulse 79 12/14/24 09:06 BP 168/100 H 12/14/24 09:06 Pulse Ox 97 12/14/24 09:06 Oxygen Delivery Method Room Air 12/14/24 09:06 BMI result Body Mass Index 33.4 Tobacco/Smoking Status: Tobacco use Status Tobacco use date assessed 12/14/24 12/14/24 09:10 Patient Tobacco Use Status Former Tobacco user 12/14/24 09:10 Tobacco use type Cigarette 12/14/24 09:10 e-Cigarette/Vaping Use Never Used 12/14/24 09:10 PHQ-9: PHQ-9 Score PHQ-9: Total score 1 12/14/24 09:17 Depression Screening Interpretation: Positive Thrive Assessment: Date of Thrive Assessment Date Thrive assessed 12/14/24 12/14/24 09:10 Currently or been in a relationship where the following occur: No concerns reported Const General: cooperative, healthy appearing, comfortable and no acute distress Orientation/consciousness: patient oriented x3 [facility] Head: Yes normocephalic Ears: hearing grossly normal bilaterally General nose exam: Normal external nose present Eyes General: appearance normal, both eyes and all related structures Conjunctivae: conjunctivae normal Neck Neck: Yes full ROM and Yes no lymphadenopathy Resp Effort & Inspection: normal respiratory effort Auscultation: clear to auscultation bilaterally, no crackles, no rales, no rhonchi and no wheezes Cardio Rate: regular rate Rhythm: regular rhythm Skin General skin exam: no rashes or lesions noted Neuro General: patient oriented x3 Gait exam (Neuro): Normal gait present Extrem General: Yes normal to inspection, Yes full ROM and No edema Psych Affect: normal affect Attitude: cooperative Insight: Good insight present (Psych) Judgement: Good judgement present (Psych) Coding Level of Care Code Est Pt Level 3 (44889) Diagnoses Hypertension I10 Hypercholesterolemia E78.00 Obesity (BMI 30-39.9) E66.9 Elevated LFTs R79.89 Assessment & Plan Assessment & Plan (1) Hypertension: Code(s): I10 - Essential (primary) hypertension Category: Medical Plan: Continue on current blood pressure medication. Avoid salt intake and encourage healthy diet and regular exercise. Blood pressure remains elevated in the office today 170/110 and patient is currently asymptomatic. I reviewed reg flag symptoms and when to present for re-evaluation. Plan to have patient see nurse navigation for blood pressure education. The patient's blood pressure remains elevated at 180/105 mmHg despite current treatment with lisinopril and carvedilol. A new medication, hydrochlorothiazide, will be added to the regimen to better control blood pressure. The patient is advised to reduce salt intake further and follow dietary recommendations provided. Follow-up is scheduled in six weeks to reassess blood pressure control and medication efficacy. (2) Hypercholesterolemia: Code(s): E78.00 - Pure hypercholesterolemia, unspecified Category: Medical Plan: Avoid foods that are high in cholesterol such as red meat, fried foods, eggs and baked goods. Triglyceride goal of less than 150 and LDL goal of less than 130. Reminded about blood work!!! (3) Obesity (BMI 30-39.9): Code(s): E66.9 - Obesity, unspecified Category: Medical Plan: Healthy diet and regular exercise is encouraged. (4) Elevated LFTs: Code(s): R79.89 - Other specified abnormal findings of blood chemistry Category: Medical Plan: Reminded patient about blood work! Plan This note was constructed using voice recognition software. While every effort has been made to ensure accuracy and charting clerk, still areas may have been included sometimes these areas may affect the content or meeting of the given symptoms. Total time spent caring for the patient today was 20 minutes. This includes time spent before the visit reviewing the chart, time spent during the visit, and time spent after the visit and documentation. Patient was informed and verbally consented to the use of an ambient scribe for clinic note documentation during this visit. Medications: New hydrochlorothiazide 12.5 mg PO DAILY 90 tabs 0RF
== END 2024-12-14 09:51 | disposition home or self-care (01) ==
LOC: HO.HMCH 09:02
PROVIDERS: PCP Internal Medicine
DX: I10 Essential (primary) hypertension (principal); E66.9 Obesity, unspecified; Z68.33 Body mass index [BMI] 33.0-33.9, adult; E78.00 Pure hypercholesterolemia, unspecified; R79.89 Other specified abnormal findings of blood chemistry

== ENCOUNTER → 2024-12-14 09:01 | Outpatient (BNVA) | payer MEDICARE, MEDICAID, SELFPAY | PROVIDERS: PCP Internal Medicine | DX: I10 Essential (primary) hypertension (principal); E78.00 Pure hypercholesterolemia, unspecified; E66.9 Obesity, unspecified; R79.89 Other specified abnormal findings of blood chemistry | CPT/HCPCS: 99212 ==

== ENCOUNTER 2024-12-21 09:45 | Outpatient (REF) | payer MEDICARE, MEDICAID, SELFPAY ==
[2024-12-21 11:58] LABS: Alanine Aminotransferase 130 U/L (0-31); Albumin Level 4.2 g/dL (3.5-5.0); Alkaline Phosphatase 129 U/L (39-117); Aspartate Amino Transferase 91 U/L (5-31); Cholesterol 221 mg/dL (<200); HDL Cholesterol 52 mg/dL (>40); Total Protein 7.6 g/dL (6.5-8.0); Triglycerides 147 mg/dL (<150)
== END 2024-12-21 09:46 | disposition home or self-care (01) ==
LOC: HO.LAB 09:45
PROVIDERS: PCP Internal Medicine
DX: E78.00 Pure hypercholesterolemia, unspecified (principal); R79.89 Other specified abnormal findings of blood chemistry
CPT/HCPCS: 36415; 80061; 80076

== ENCOUNTER → 2024-12-23 13:23 | Outpatient (BNVA) | payer MEDICARE, MEDICAID, SELFPAY | PROVIDERS: PCP Internal Medicine | DX: Z13.89 Encounter for screening for other disorder (principal) | CPT/HCPCS: 99211 ==

== ENCOUNTER 2024-12-24 14:11 | Outpatient (AMB) | payer MEDICARE, MEDICAID, SELFPAY ==
--- NOTE | 2024-12-24 14:16 | MHC.OFFVIS ---
Vital Signs 12/24/24 14:17 Height 5 ft 0.5 in Weight 171 lb 15.369 oz BMI 33.0 BP 172/116 H Blood Pressure Location Lt brachial Position Sitting Pulse 87 Intake Visit Reasons: 30 m. [place] re-screening. ELLIOT w/ Sheyla 2022. Intake Note: Francie presents in the office as a colonoscopy screening - last week in 2022. CC: States that she is not having issues with her stomach but she states that it has not happened since August. Teachers Aide Required: Yes Teachers Aide Name: [id number] Cerda Allergies No Known Allergies Allergy (Verified 12/24/24 14:22) HPI HPI 30 m. [place] re-screening. ELLIOT w/ Sheyla 2022.: Details: LAST VISIT 08/23/2022 Colon cancer screening Patient denies any GI, cardiac or respiratory symptoms.? History of PDA, seen by social services designee and referred to bombsight specialist in [place]. Patient had recent surgery in February had no issues. Currently patient does not have any shortness of breath or chest pressure. Will send message to social services designee to see if patient needs clearance. Denies any issues with anesthesia in the past.? Denies any history of sleep apnea.? No history of infectious diseases in the past or present.? Not on any anticoagulation therapy.? No family or personal history of colon cancer or polyps.? Patient denies melena, hematochezia, unintentional weight loss or ribbon like stools.? Discussed at length the pre-procedure,? prep, diet & medications as well as what to expect prior, during and after the procedure.?? Stressed the importance of good bowel prep. ?Recommended the use of Vaseline or Calmoseptine OTC & baby wipes with bowel movements to promote comfort.? ?Patient verbalizes understanding and agrees to plan of care.? She was given the opportunity to ask questions and all questions answered.? We will see her after the procedure.? Plan New bisacodyl (Dulcolax (bisacodyl)) take 2 tabs at noon the day before your colonoscopy 10 mg (2 x 5 mg) PO ONCE 1 day 2 tabs 0RF Z12.11 - Encounter for screening for malignant neoplasm of colon polyethylene glycol 3350 (Miralax) As directed by gastroenterology department at [facility] 238 grams PO ONCE 238 grams 0RF Z12.11 - Encounter for screening for malignant neoplasm of colon TODAY'S VISIT Patient is here today to discuss going for colonoscopy again. Patient never had colonoscopy done after last seen in 2022. Patient had some cardiac issues and she was seen social services designee late 2022 till 2023. Patient never followed up with Cardiology. Patient had appointment last August and did not come to her appointment. Patient states that she was going through a lot of stress. Patient is not taking amlodipine or Lasix as prescribed by her social services designee. Her blood pressure is being managed by PCP. Today in the office blood pressure still high after checking it manually. Patient denies dizziness, headache, chest pain. Status post PDA occlusion with Amplatzer duct occluder 07/2023. Patient denies melena, hematochezia, unintentional weight loss or ribbon like stools. Patient had Cologuard in 2022 that was positive. Patient denies having any family history of CRC. Denies any abdominal pain, melena, hematochezia, unintentional weight loss or ribbon like stools. In order for patient to have a colonoscopy she needs to be cleared by Cardiology. Spoke to administrative office clerk and patient was placed on the schedule for next week Friday at 08:30 in the morning. Patient is to call if she is not able to make it to rescheduled appointment. PENDING SALE TO [facility] Medical History Colon cancer screening Homeless Annual physical exam Encounter for annual routine gynecological examination Preoperative cardiovascular examination Heart murmur Cervical cancer screening Breast cancer screening by mammogram Hypercholesterolemia Hypertension Generalized anxiety disorder Bimalleolar fracture of right ankle Patent ductus arteriosus Pulmonary artery hypertension Tobacco abuse Surgical History Status post catheter-placed plug or coil occlusion of PDA History of ankle surgery History of tubal ligation Family History Father Prostate cancer Mother Diabetes Dementia Sister No problems noted. Sister No problems noted. Sister Dementia Brother No problems noted. Brother Prostate cancer Son No problems noted. Son No problems noted. Daughter No problems noted. Social History Household Members Other:: Lives in a snf 02/2024 Housing: Other Housing Other:: lives in a snf, will stay with sister post-op Are you a primary lawn care technician to a significant other at home: No Do you presently have visiting nurse or other home services: No Alcohol intake: current Alcohol intake frequency: holidays/special occasions only Comment: 1-2 Q 3 months Patient Tobacco Use Status: Former Tobacco user Tobacco use type: Cigarette Cigarettes Per Day: 2 Years Smoked: stopped 03/2023 e-Cigarette/Vaping Use: Never Used Second Hand Smoke Exposure: Yes Advance Directives Date on File: 02/19/22 service: No Current occupational status: unemployed Cognitive needs: No Hearing needs: No Vision needs: Yes Review of Systems Const Denies weight gain and Denies weight loss ENT Reports no additional complaints, Denies dysphagia and Denies odynophagia Card Reports no additional complaints Resp Reports no additional complaints GI Denies abdominal pain, Denies belching, Denies melena, Denies bloating, Denies change in bowel habits, Denies dysphagia, Denies excessive flatus, Denies dyspepsia, Denies heartburn, Denies diarrhea, Denies loose stools, Denies nausea, Denies odynophagia and Denies vomiting Reports no additional complaints Musc Reports no additional complaints Neuro Reports no additional complaints Psych Reports no additional complaints Endo Reports no additional complaints Physical Exam Vital Signs: Last Vital Signs Pulse 87 12/24/24 14:17 BP 172/116 H 12/24/24 14:17 BMI result Body Mass Index 33.0 Const General: healthy appearing and no acute distress Nutritional Appearance: well nourished and obese Orientation/consciousness: patient oriented x3 Resp Effort & Inspection: normal respiratory effort, able to speak in complete sentences, no tracheal deviation and symmetric chest movement Auscultation: clear to auscultation bilaterally Cardio Rate: regular rate GI Inspection: Yes normal to inspection, No distended and Yes obesity Palpation (GI): Soft to palpation, not firm, nontender and No hepatosplenomegaly present Auscultation: normal bowel sounds General: Yes no CVA tenderness Back/Spine/Pelvis Back: no CVA tenderness Skin General skin exam: elasticity normal, turgor normal and dry skin Neuro General: patient oriented x3 Psych Appearance: grossly normal Mental Status: mental status grossly normal Assessment & Plan Assessment & Plan (1) Hepatic steatosis: Code(s): K76.0 - Fatty (change of) liver, not elsewhere classified Category: Medical (2) Colon cancer screening: Code(s): Z12.11 - Encounter for screening for malignant neoplasm of colon Category: Medical Plan Long discussion with patient about the importance of following up with her social services designee. Blood pressure is not well optimized. Patient is not taking amlodipine or Lasix as prescribed by her social services designee. She will need to go for colonoscopy due to her positive Cologuard. Appointment was made for Friday. Will send patient for colonoscopy in the meantime patient will need to be cleared. Patient denies any cardiac or respiratory symptoms at this moment. Denies any abdominal pain or discomfort. Appointment with cardiology made for Friday. Patient is to call if she will not make the appointment. I will see her in 4 weeks. Order placed for colonoscopy. Patient is agreeable to current plan of care and verbalizes understanding of instructions. She was given the opportunity to ask questions and all questions answered. Thank you for allowing me to participate in her care Coding Level of Care Code Est Pt Level 4 (42496) Complex EM visit Add On G2211 Diagnoses Hepatic steatosis K76.0 Colon cancer screening Z12.11 Time Spent (min) 40 Comment 25 minutes spent with patient and additional 15 minutes spent reviewing her records
[2024-12-24 14:17] VITALS: BP 172/116; PULSE 87; BMI 33.0
== END 2024-12-24 15:05 | disposition home or self-care (01) ==
LOC: HO.HGI 14:12
PROVIDERS: PCP Internal Medicine; Visit Provider Nurse Practitioner Family
DX: K76.0 Fatty (change of) liver, not elsewhere classified (principal); I10 Essential (primary) hypertension
CPT/HCPCS: 99214; G2211

== ENCOUNTER → 2024-12-24 14:11 | Outpatient (BNVA) | payer MEDICARE, MEDICAID, SELFPAY | PROVIDERS: PCP Internal Medicine; Visit Provider Nurse Practitioner Family | DX: Z12.11 Encounter for screening for malignant neoplasm of colon (principal); K76.0 Fatty (change of) liver, not elsewhere classified | CPT/HCPCS: 99212 ==

== ENCOUNTER 2025-02-10 10:06 | Outpatient (AMB) | payer MEDICARE, MEDICAID, SELFPAY ==
[2025-02-10 10:10] VITALS: BP 138/76; PULSE 78; O2SAT 98; BMI 33.2
--- NOTE | 2025-02-10 10:10 | MHC.PC.OV ---
Vital Signs 02/10/25 10:10 02/10/25 10:53 Height 5 ft 0.5 in Weight 173 lb BMI 33.2 BP 138/76 156/98 H Blood Pressure Location Lt brachial Lt brachial Position Sitting Sitting Pulse 78 Pulse Source Pulse Oximeter Pulse Oximetry (%) 98 Oxygen Delivery Method Room Air Intake Visit Reasons: 6 weeks follow up Allergies No Known Allergies Allergy (Verified 02/10/25 10:42) Medication List - Last Reconciled 02/10/25 by Elizabeth Henderson PA-C blood pressure monitor (Blood Pressure Kit) As directed brimonidine 0.2% 1 drp ophthalmic (eye) BID carvedilol 25 mg PO BID 90 days hydrochlorothiazide 12.5 mg PO DAILY lisinopril 40 mg PO DAILY [PULL UPS MEDIUM As directed] [rollator walker As directed] zolpidem 10 mg PO BEDTIME PRN Tobacco use date assessed: 12/14/24 Dental Screening Dental Screen Date: 12/14/24 HPI 6 weeks follow up HPI Details 65-year-old female with past medical history of cholelithiasis, hypertension, hypercholesterolemia, generalized anxiety disorder, hepatic steatosis, cardiomegaly and urge incontinence last seen 12/2024 coming in for follow up. In review of the notes, patient was seen by GI 12/2024 recommended cardiology clearance prior to colonoscopy. Presenting for a follow-up visit for hypertension and abnormal lab results. Regarding her hypertension, she reports taking lisinopril and hydrochlorothiazide daily, but it is unclear if she is taking the prescribed carvedilol twice a day. Her blood pressure remains elevated and there is concern about medication compliance. She continues to have elevated liver tests and reports drinking alcohol in the weekends but not frequently. Hepatitis panel was not drawn on her last blood work and patient is reminded to have this completed and plan for abdominal ultrasound. For her cholesterol, which was last measured at 140, her statin medication was discontinued due to the elevated liver enzymes. Cholesterol remains elevated. [facility] Medical History Colon cancer screening Homeless Annual physical exam Encounter for annual routine gynecological examination Preoperative cardiovascular examination Heart murmur Cervical cancer screening Breast cancer screening by mammogram Hypercholesterolemia Hypertension Generalized anxiety disorder Bimalleolar fracture of right ankle Patent ductus arteriosus Pulmonary artery hypertension Tobacco abuse Surgical History Status post catheter-placed plug or coil occlusion of PDA History of ankle surgery History of tubal ligation Family History Father Prostate cancer Mother Diabetes Dementia Sister No problems noted. Sister No problems noted. Sister Dementia Brother No problems noted. Brother Prostate cancer Son No problems noted. Son No problems noted. Daughter No problems noted. Social History Household Members Other:: Lives in a usp 02/2024 Housing: Other Housing Other:: lives in a usp, will stay with sister post-op Are you a primary care program director to a significant other at home: No Do you presently have visiting nurse or other home services: No Alcohol intake: current Alcohol intake frequency: holidays/special occasions only Comment: 1-2 Q 3 months Patient Tobacco Use Status: Former Tobacco user Tobacco use type: Cigarette Cigarettes Per Day: 2 Years Smoked: stopped 03/2023 e-Cigarette/Vaping Use: Never Used Second Hand Smoke Exposure: Yes Advance Directives Date on File: 02/19/22 service: No Current occupational status: unemployed Cognitive needs: No Hearing needs: No Vision needs: Yes Questionnaire Thrive Questionnaire Date Thrive assessed: 08/24/24 I am a: Patient What is your living situation today?: I do not have a steady places to live Within the past 12 months, did the food you bought not last and you didn't have the money to get more?: Sometimes True Within the past 12 months, did you worry whether your food would run out before you got money to buy more?: Sometimes True Do you have trouble paying for medicines?: Yes Do you have trouble getting transportation to medical appointments?: No Do you have trouble paying your heating and electricity bill?: Yes Do you have trouble taking care of your child, family member or friend?: No Do you have trouble with day-to-day activities such as bathing, preparing meals, shopping, managing finances, etc.?: No Are you currently unemployed and looking for a job?: No Are you interested in more education?: No Please select the resources that you would like help with: Housing/Penitentiary, Food, Transportation, Utilities and None Currently or been in a relationship where the following occur: No concerns reported THRIVE Score: 4 KATHRINE-7 AMB Questionnaire KATHRINE-7 Date KATHRINE - 7 assessed: 12/14/24 Source: Developed by Drs. Jaquan Castaneda, Renetta Patiño, Ugo Patel and colleagues, with an educational dwayne from [employer]. Review of Systems Const Denies body aches, Denies chills, Denies fever(s), Denies headache(s) and Denies poor appetite Eyes Reports no additional complaints ENT Denies dysphagia, Denies dizziness, Denies headache(s) and Denies odynophagia Card Denies chest pain, Denies syncope, Denies edema, Denies irregular heart rhythm, Denies lightheadedness and Denies dyspnea Resp Denies cough and Denies dyspnea GI Denies abdominal pain, Denies constipation, Denies dysphagia, Denies diarrhea, Denies nausea, Denies odynophagia and Denies vomiting Reports no additional complaints Musc Reports no additional complaints and Denies abnormal gait Skin/Breast Reports system reviewed and no additional complaints, except as documented Neuro Denies abnormal gait, Denies dizziness, Denies syncope and Denies headache(s) Psych Reports no additional complaints Physical exam (Primary Care) Vital Signs: Last Vital Signs Pulse 78 02/10/25 10:10 BP 156/98 H 02/10/25 10:53 Pulse Ox 98 02/10/25 10:10 Oxygen Delivery Method Room Air 02/10/25 10:10 BMI result Body Mass Index 33.2 Tobacco/Smoking Status: Tobacco use Status Tobacco use date assessed 12/14/24 02/10/25 10:15 Patient Tobacco Use Status Former Tobacco user 02/10/25 10:15 Tobacco use type Cigarette 02/10/25 10:15 e-Cigarette/Vaping Use Never Used 02/10/25 10:15 Thrive Assessment: Date of Thrive Assessment Date Thrive assessed 08/24/24 02/10/25 10:15 Currently or been in a relationship where the following occur: No concerns reported Const General: cooperative, healthy appearing, comfortable and no acute distress Orientation/consciousness: patient oriented x3 HENMT Head: Yes normocephalic Ears: hearing grossly normal bilaterally General nose exam: Normal external nose present Eyes General: appearance normal, both eyes and all related structures Conjunctivae: conjunctivae normal Neck Neck: Yes full ROM and Yes no lymphadenopathy Resp Effort & Inspection: normal respiratory effort Auscultation: clear to auscultation bilaterally, no crackles, no rales, no rhonchi and no wheezes Cardio Rate: regular rate Rhythm: regular rhythm Skin General skin exam: no rashes or lesions noted Neuro General: patient oriented x3 Gait exam (Neuro): Normal gait present Extrem General: Yes normal to inspection, Yes full ROM and No edema Psych Affect: normal affect Attitude: cooperative Insight: Good insight present (Psych) Judgement: Good judgement present (Psych) Coding Level of Care Code Est Pt Level 4 (69972) Diagnoses Hypertension I10 Hypercholesterolemia E78.00 Obesity (BMI 30-39.9) E66.9 Elevated LFTs R79.89 Assessment & Plan Assessment & Plan (1) Hypertension: Code(s): I10 - Essential (primary) hypertension Category: Medical Plan: Continue on current blood pressure medication. Avoid salt intake and encourage healthy diet and regular exercise. Blood pressure remains elevated in the office today and patient is currently asymptomatic. I reviewed reg flag symptoms and when to present for re-evaluation. Plan to have patient see nurse navigation for blood pressure education. Blood pressure remains elevated despite being on hydrochlorothiazide and lisinopril and question of carvedilol. She reports taking all her blood pressure medication this was confirmed with her home meds. Plan to increase hydrochlorothiazide to b.i.d. (2) Hypercholesterolemia: Code(s): E78.00 - Pure hypercholesterolemia, unspecified Category: Medical Plan: Avoid foods that are high in cholesterol such as red meat, fried foods, eggs and baked goods. Triglyceride goal of less than 150 and LDL goal of less than 130. Atorvastatin was discontinued due to her elevated liver tests advised patient to monitor her diet very closely and we will watch the blood work. (3) Obesity (BMI 30-39.9): Code(s): E66.9 - Obesity, unspecified Category: Medical Plan: Healthy diet and regular exercise is encouraged. (4) Elevated LFTs: Code(s): R79.89 - Other specified abnormal findings of blood chemistry Category: Medical Plan: Liver tests remain elevated and I reminded the patient about hepatitis panel in the lab and plan for abdominal US. Plan This note was constructed using voice recognition software. While every effort has been made to ensure accuracy and truck driver helper, still areas may have been included sometimes these areas may affect the content or meeting of the given symptoms. Total time spent caring for the patient today was 20 minutes. This includes time spent before the visit reviewing the chart, time spent during the visit, and time spent after the visit and documentation. Patient was informed and verbally consented to the use of an ambient scribe for clinic note documentation during this visit. Orders: Orders US abdomen limited 02/10/25 K76.0 - Fatty (change of) liver, not elsewhere classified, R79.89 - Other specified abnormal findings of blood chemistry Liver Panel 02/10/25 R79.89 - Other specified abnormal findings of blood chemistry Medications: Changed From hydrochlorothiazide 12.5 mg PO DAILY 90 tabs 0RF To hydrochlorothiazide 12.5 mg PO BID 60 tabs 0RF 30 days
[2025-02-10 10:53] VITALS: BP 156/98
== END 2025-02-10 11:08 | disposition home or self-care (01) ==
LOC: HO.HMCH 10:07
PROVIDERS: PCP Internal Medicine
DX: I10 Essential (primary) hypertension (principal); E66.9 Obesity, unspecified; Z68.33 Body mass index [BMI] 33.0-33.9, adult; E78.00 Pure hypercholesterolemia, unspecified; R79.89 Other specified abnormal findings of blood chemistry

== ENCOUNTER → 2025-02-10 10:06 | Outpatient (BNVA) | payer MEDICARE, MEDICAID, SELFPAY | PROVIDERS: PCP Internal Medicine | DX: I10 Essential (primary) hypertension (principal); E78.00 Pure hypercholesterolemia, unspecified; R79.89 Other specified abnormal findings of blood chemistry; E66.9 Obesity, unspecified; Z68.33 Body mass index [BMI] 33.0-33.9, adult; Z71.3 Dietary counseling and surveillance; Z87.891 Personal history of nicotine dependence | CPT/HCPCS: 99212 ==

== ENCOUNTER 2025-03-29 09:10 | Outpatient (AMB) | payer MEDICARE, MEDICAID, SELFPAY ==
[2025-03-29 09:26] VITALS: BP 160/98; PULSE 82; BMI 34.3
--- NOTE | 2025-03-29 09:26 | A.OFFVIS_ITS ---
Vital Signs 03/29/25 09:26 Height 5 ft 0.5 in Weight 178 lb 9.191 oz BMI 34.3 BP 160/98 H Blood Pressure Location Lt brachial Position Sitting Pulse 82 Pulse Source Monitor Intake Visit Reasons: r/s 12/27-02/11 preop/shamar n/clearance HS Patent Law Specialist Required: Yes Patent Law Specialist Language: Transmitter Tester Name: shelia castellanos [id number] Allergies No Known Allergies Allergy (Verified 03/29/25 09:31) Medication List - Last Reconciled 03/29/25 by Elisa Malik NP-C blood pressure monitor (Blood Pressure Kit) As directed brimonidine 0.2% 1 drp ophthalmic (eye) BID carvedilol 25 mg PO BID 90 days hydrochlorothiazide 12.5 mg PO BID 30 days lisinopril 40 mg PO DAILY [PULL UPS MEDIUM As directed] [rollator walker As directed] sertraline 25 mg PO DAILY zolpidem 10 mg PO BEDTIME PRN HPI HPI r/s 12/27-02/11 preop/shamar n/clearance HS: Details: The patient is a 65 year old female presenting for follow-up of patent ductus arteriosus (PDA) status post occlusion, cardiomyopathy, hypertension, and preoperative cardiovascular clearance for a colonoscopy. Her last visit was on 11/05/2023. She is scheduled for a colonoscopy because a screening kit showed a small amount of blood. Her cardiac history includes a one-time procedure to occlude a PDA in 2023. An echocardiogram from 08/31/2024 showed an ejection fraction of 35-40%, moderately increased left ventricular wall thickness, and a mildly dilated ascending aorta of 4 cm, which was a decline from an EF of 50% on an echo from 10/28/2023. A coronary CTA ordered during her last visit was not completed. The patient reports intermittent, quick, stabbing chest pains, which are sometimes associated with anxiety. She also reports shortness of breath with exertion which is not new and she will get occasional palpitations. Her current cardiac medications include carvedilol, hydrochlorothiazide, and lisinopril. She did not take her medications this morning prior to the visit. [facility] Medical History Colon cancer screening Homeless Annual physical exam Encounter for annual routine gynecological examination Preoperative cardiovascular examination Heart murmur Cervical cancer screening Breast cancer screening by mammogram Hypercholesterolemia Hypertension Generalized anxiety disorder Bimalleolar fracture of right ankle Patent ductus arteriosus Pulmonary artery hypertension Tobacco abuse Surgical History Status post catheter-placed plug or coil occlusion of PDA History of ankle surgery History of tubal ligation Family History Father Prostate cancer Mother Diabetes Dementia Sister No problems noted. Sister No problems noted. Sister Dementia Brother No problems noted. Brother Prostate cancer Son No problems noted. Son No problems noted. Daughter No problems noted. Social History Household Members Other:: Lives in a alf 02/2024 Housing: Other Housing Other:: lives in a alf, will stay with sister post-op Are you a primary home health care social worker to a significant other at home: No Do you presently have visiting nurse or other home services: No Alcohol intake: current Alcohol intake frequency: holidays/special occasions only Comment: 1-2 Q 3 months Patient Tobacco Use Status: Former Tobacco user Tobacco use type: Cigarette Cigarettes Per Day: 2 Years Smoked: stopped 03/2023 e-Cigarette/Vaping Use: Never Used Second Hand Smoke Exposure: Yes Advance Directives Date on File: 02/19/22 service: No Current occupational status: unemployed Cognitive needs: No Hearing needs: No Vision needs: Yes Review of Systems Const All systems reviewed & are unremarkable except as noted in HPI and below ENT Denies dizziness Card Reports chest pain (stabs), Denies chest pain at rest, Denies chest pain with activity, Denies rapid heart rate, Denies pedal edema, Denies edema, Denies leg edema, Denies lightheadedness, Denies palpitations, Denies dyspnea, Denies dyspnea on exertion and Denies orthopnea Resp Denies cough, Denies dyspnea and Denies dyspnea on exertion GI Denies hematochezia and Denies change in stool character Musc Denies abnormal gait, Denies limited range of motion, Denies muscle cramps, Denies muscle weakness, Denies numbness, Denies radiating pain into limb, Denies stiffness and Denies tingling Neuro Denies abnormal gait, Denies dizziness, Denies numbness and Denies tingling Endo Denies palpitations Physical Exam Vital Signs: Last Vital Signs Pulse 82 03/29/25 09:26 BP 160/98 H 03/29/25 09:26 BMI result Body Mass Index 34.3 Const General: cooperative, healthy appearing, comfortable and no acute distress Orientation/consciousness: patient oriented x3 Neck Neck: Yes normal visual inspection Carotids: normal carotid upstroke Resp Effort & Inspection: normal respiratory effort Auscultation: clear to auscultation bilaterally, no crackles, no rales, no rhonchi and no wheezes Cardio Rate: regular rate Rhythm: regular rhythm Heart sounds: S1 normal heart sound present, S2 normal heart sound present, no gallops, no murmurs and no rubs Neuro General: patient oriented x3 Extrem General: Yes normal to inspection, No no pedal edema and No calf tenderness Psych Appearance: grossly normal Mental Status: mental status grossly normal Speech and movement: Normal speech and movement present Office Procedures EKG Details: Today, read by me, normal sinus rhythm, right bundle branch block, left anterior fascicular block, bifascicular block, voltage criteria for LVH, T-wave abnormality in the lateral leads. [id number], Complete Assessment & Plan Assessment & Plan (1) Cardiomyopathy: Comment: Echocardiogram August 2024Moderately reduced LV ejection fraction of 35-40% with moderate lead increased left ventricular wall thickness with impaired relaxation filling pattern 2. Normal cardiac valvular Dopplers 3. Mildly dilated ascending aorta at 4 cm 4. No gross pericardial effusion Code(s): I42.9 - Cardiomyopathy, unspecified Category: Medical Plan: Cardiomyopathy noted on echocardiogram 08/2024 with EF 35-40%. Prior echo had shown EF 50%. Unknown if this is ischemic versus nonischemic. She has no anginal symptoms. EKG today showing sinus rhythm, bifascicular block, T-wave abnormality in the lateral leads, rate 82. Will check a CTA of the coronary arteries to evaluate for stenosis. Will update a limited echocardiogram to re- evaluate EF and wall motion. Continue carvedilol and lisinopril for neurohormonal modulation. If EF remains down will transition over to Entresto. Labs from 08/24/2024 had shown creatinine 0.75. Rechecking BMP prior to CTA cardiology follow-up 6-8 weeks, sooner if needed. (2) Patent ductus arteriosus: Comment: murmur July 2022 last echocardiogramMain pulmonary artery dilated; root -4cm; mid 3.4cm; more distally 4cm. - PDA with continuous flow noted; peak gradient 143mmHg. Closure of the PDA done July 2023 Code(s): Q25.0 - Patent ductus arteriosus Category: Medical Plan: History of PDA with closure 07/2023. Last echocardiogram does not mention PDA. No murmur noted on exam. (3) Status post catheter-placed plug or coil occlusion of PDA: Comment: 07/2023 Code(s): Z87.74 - Personal history of (corrected) congenital malformations of heart and circulatory system Category: Surgical Plan: As above (4) Ascending aorta enlargement: Comment: October 2023 4.06 Aug 2024 4 cm Code(s): I77.89 - Other specified disorders of arteries and arterioles Category: Medical Plan: Mildly dilated. Will continue to follow with periodic echoes. (5) Hypertension: Code(s): I10 - Essential (primary) hypertension Category: Medical Plan: Blood pressure goal less than 130/80. Elevated at this visit but she states she did not take her medications yet today. Strict med compliance reviewed with her. Continue carvedilol, hydrochlorothiazide and lisinopril. (6) Preoperative cardiovascular examination: Code(s): Z01.810 - Encounter for preprocedural cardiovascular examination Category: Medical Plan: Preop for colonoscopy. Cardiac clearance will be addressed following upcoming cardiac testing. Plan I explained to the patient that her heart ultrasound last spring showed that her heart was weak, which can cause symptoms like shortness of breath due to fluid retention. Given that it is unknown why heart is weak, I recommended a CAT scan to check the arteries around her heart for blood flow and a repeat heart u ltrasound to re-evaluate its current function. I informed her that the CAT scan is only performed at a different facility and is currently booking 6 to 8 weeks out, which she stated was acceptable. I clarified that we must wait for the results of these heart tests before we can provide medical clearance for her upcoming colonoscopy. We also discussed her elevated blood pressure reading today, and she confirmed she had not yet taken her medications this morning. I stressed the importance of taking her medications every day as directed. A follow-up appointment will be scheduled after her tests are completed. Orders: Orders CA Echo Limited Today I42.9 - Cardiomyopathy, unspecified CT Cardiac Coronary Angio Today I10 - Essential (primary) hypertension, I42.9 - Cardiomyopathy, unspecified Basic Metabolic Panel Today I10 - Essential (primary) hypertension, I42.9 - Cardiomyopathy, unspecified Patient Instructions: - Make sure you take your medications every day. Some of them need to be taken twice a day. - We will order a CAT scan (coronary CTA) of your heart arteries. You will receive a call to schedule this appointment. This test will be done at the [facility], and they will give you plenty of notice. - We will also order another heart ultrasound (echocardiogram). The central scheduling department will call you to set up this appointment. - We cannot give you clearance for your colonoscopy until after these heart tests are completed. - You will get a follow-up appointment here in our office after your test results are ready. The appointment details will be on a card for you. Patient was informed and verbally consented to the use of an ambient scribe for clinic note documentation during this visit. Visit time spent on chart review, interview, assessment, orders, documentation. Cardiomyopathy as noted on a Coding Level of Care Code Est Pt Level 4 (20173) Add On Problem Visit Only Diagnoses Cardiomyopathy I42.9 Patent ductus arteriosus Q25.0 Status post catheter-placed plug or coil occlusion of PDA Z87.74 Ascending aorta enlargement I77.89 Hypertension I10 Preoperative cardiovascular examination Z01.810 CPT Codes EKG - CPT: 75381-[id number], Complete ([id number]) Time Spent (min) 32
== END 2025-03-29 10:07 | disposition home or self-care (01) ==
LOC: HO.HCS 09:11
PROVIDERS: PCP Internal Medicine; Visit Provider Nurse Practitioner Family
DX: I42.9 Cardiomyopathy, unspecified (principal); Q25.0 Patent ductus arteriosus; Z87.74 Personal history of (corrected) congenital malformations of heart and circulatory system; I77.89 Other specified disorders of arteries and arterioles; I10 Essential (primary) hypertension; Z01.810 Encounter for preprocedural cardiovascular examination
CPT/HCPCS: 93010; 99214; G2211

== ENCOUNTER → 2025-03-29 09:10 | Outpatient (BNVA) | payer MEDICARE, MEDICAID, SELFPAY | PROVIDERS: PCP Internal Medicine; Visit Provider Nurse Practitioner Family | DX: Z01.810 Encounter for preprocedural cardiovascular examination (principal); I42.9 Cardiomyopathy, unspecified; Q25.0 Patent ductus arteriosus; Z87.74 Personal history of (corrected) congenital malformations of heart and circulatory system; I77.9 Disorder of arteries and arterioles, unspecified; I10 Essential (primary) hypertension | CPT/HCPCS: 93005; 99212 ==

== ENCOUNTER 2025-04-04 10:36 | Outpatient (REF) | payer MEDICARE, MEDICAID, SELFPAY ==
--- NOTE | ~2025-04-04 | US_ITS ---
EXAMINATION: US ABDOMEN LIMITED HISTORY: K76.0 - Fatty (change of) liver, not elsewhere classified TECHNIQUE: Real-time grayscale ultrasound imaging of the right upper quadrant was performed and images were reviewed. COMPARISON: Comparison is made with the prior examination dated 05/19/2023. FINDINGS: Liver: The right lobe of the liver measures 16.0 cm in size. The left lobe of the liver measures 13.6 cm in size. The liver demonstrates increased echotexture, consistent with steatosis. No focal mass or intrahepatic biliary ductal dilatation is identified. There is normal hepatopedal flow in the portal vein. Gallbladder and biliary tree: Multiple calculi are noted in the gallbladder. There is no wall thickening or pericholecystic fluid. The technologist reports the patient to be tender over the gallbladder and in the right lower quadrant. It is uncertain whether this represents a positive sonographic Denton sign. The common bile duct is normal in caliber measuring 5 mm in diameter. Right Kidney: The right kidney measures 10.0 cm in length. The right kidney is unremarkable, without evidence of masses, hydronephrosis, or calculi. Pancreas: The pancreatic head, neck, and body are unremarkable. The pancreatic tail is obscured by bowel gas. Abdominal aorta and inferior vena cava: The visualized portions of the abdominal aorta and inferior vena cava are normal in caliber. There is no free fluid in the right upper quadrant. US/US abdomen limited IMPRESSION: 1. Hepatomegaly and hepatic steatosis. 2. Cholelithiasis. Equivocal sonographic Denton sign. If there is clinical concern for acute cholecystitis, HIDA scan could be performed. Electronically signed by: Jaquan Elena MD 04/04/2025 11:59 AM EST
== END 2025-04-04 10:37 | disposition home or self-care (01) ==
LOC: HO.US 10:36
PROVIDERS: PCP Internal Medicine
DX: K76.0 Fatty (change of) liver, not elsewhere classified (principal); R79.89 Other specified abnormal findings of blood chemistry
CPT/HCPCS: 76705

== ENCOUNTER → 2025-04-04 10:38 | Outpatient (BNV) | payer MEDICARE, MEDICAID, SELFPAY | PROVIDERS: PCP Internal Medicine; Visit Provider Radiology Diagnostic Radiology | DX: K80.20 Calculus of gallbladder without cholecystitis without obstruction (principal); K76.0 Fatty (change of) liver, not elsewhere classified; R16.0 Hepatomegaly, not elsewhere classified | CPT/HCPCS: 76705 ==